=== PATIENT | male | born 1950 | race Caucasian/White ===

== ENCOUNTER 2016-11-26 09:56 | Inpatient (IN) ==
[2016-11-26] MEDS ORDERED: Naloxone 0.4 MG/ML INJ IVP PRN (11:31)
[2016-11-26] MEDS: *HR* HYDROmorphone (PF) 1 MG/ML SYRINGE IVP PRN ×2 (12:13→16:22)
[2016-11-26] MEDS: 0.9 % Sodium Chloride 1,000 ML IVC SCH ×2 (12:13→19:00)
[2016-11-26] MEDS: Piperacillin/Tazobactam 3.375 GM in D5% in Water (Mini-Bag+) 100 ML IVPB SCH ×2 (15:06→15:10)
[2016-11-26] MEDS: Ondansetron 4 MG/2 ML VIAL IVP PRN (15:41)
--- NOTE | 2016-11-26 17:28 | General Surg History&Physical ---
Date of Encounter: 11/26/16 Time of Encounter: 11:10 Assessment and Plan (1) Acute appendicitis Current Visit: No Status: Acute CT confirmed perforated appendix. NPO with bowel rest. Placing NG tube. IV-Zosyn Continue zofran. Supportive care/Pain control- ASSOCIATE EDITOR/dilaudid Serial abdominal exams. Repeat labs in AM. Qualifiers: Acute appendicitis type: with generalized peritonitis Qualified Code(s): K35.2 - Acute appendicitis with generalized peritonitis (2) Leukocytosis Current Visit: Yes Status: Acute WBC 15.4 Continue IV zosyn Monitor labs, repeat in the AM Qualifiers: Leukocytosis type: unspecified Qualified Code(s): D72.829 - Elevated white blood cell count, unspecified (3) HTN (hypertension) Current Visit: Yes Status: Chronic Home medication held for NPO status. Currently normotensive. Will monitor and adjust medications as needed. Qualifiers: Hypertension type: essential hypertension Qualified Code(s): I10 - Essential (primary) hypertension (4) DVT prophylaxis Current Visit: Yes Status: Acute EPCDs History of Present Illness Chief complaint: abdominal pain HPI: Mr. Kirk is a 66 year old male transferred from [place] ED with N/V/abd pain x 2 days. Patient found to have acute appendicitis on CT in the ED. ED spoke with Dr. Beaulieu, correctional supply supervisor for surgery, for admission. PMHx of HTN. Patient admits to chills, but no documented fever; states he feels very "bloated". Last flatus and BM noted to be yesterday. Patient describes abdominal pain as diffuse, 10/ 10 in severity, currently still 10/10. Patient notes some recent nausea, denies any vomiting. Patient notes increase in urine output, with pain radiating to his "penis and rectum". Labs reviewed from [place] with WBC 15.4, Hgb 14.9, total bilirubin elevated at 1.5. Past Med Surg Social Fam HX - Past Medical History Medical history: hypertension Psychiatric history: no psych history - Past Surgical History Surgical History: orthopedic, other (ACL repair bilaterally), vasectomy - Social History Smoking Status: Never smoker Alcohol use: occasionally Drug use: none - Family History Father Living Status: Hx Family Cardiac Disorders: Yes Medications and Allergies Lisinopril [Zestril] 40 mg PO DAILY 11/26/16 [History] Multivitamin/Iron/Folic Acid [Centrum Complete Multivit Tab] 1 tab PO DAILY [History] Allergies No Known Allergies Allergy (Verified 11/26/16 07:21) Review of Systems All systems PM: A 10-system review of systems was performed and is negative for pertinent findings except as documented above in the HPI. - Constitutional chills, fatigue, malaise, weakness - EENT Nose, mouth and throat: dry mouth - Cardiovascular dyspnea, no chest pain, no syncope - Respiratory dyspnea, no cough, no wheezing - Gastrointestinal abdominal pain, bloating, nausea, no vomiting - Genitourinary difficulty urinating, genital pain, post void dribbling, urinary hesitancy, no dysuria - Musculoskeletal muscle weakness, no numbness, no tingling - Integumentary no rash - Neurological weakness, no abnormal speech, no confusion, no syncope General Surgery Exam Initial Vital Signs Temp Pulse Resp BP Pulse Ox 101.5 F H 90 18 111/72 96 11/26/16 11:11 11/26/16 11:11 11/26/16 11:11 11/26/16 11:11 11/26/16 11:11 - General physical appearance well developed, well nourished, moderate distress, severe pain - Eyes normal ocular movement - ENT dry mucosa, atraumatic, normocephalic - Neck trachea midline - Respiratory normal respiratory effort, clear to auscultation - Cardiovascular Cardiovascular exam: Present: RRR - Abdomen Abdomen general surgery: Present: bowel sounds present (hypoactive), distended, tender (diffuse tenderness ). Absent: soft - Integumentary Integumentary general surgery: Present: warm and dry, no abnormal pigmentation - Neurologic Present: CN 2-12 grossly intact - Psychiatric Psychiatric general surgery: Present: oriented to person, oriented to place, oriented to time, speech is normal, memory intact Results - Labs All other labs normal.
[2016-11-26] MEDS: *HR* HYDROmorphone 20 MG/20 ML PCA IVC PRN (18:48)
[2016-11-27] MEDS: Piperacillin/Tazobactam 3.375 GM in D5% in Water (Mini-Bag+) 100 ML IVPB SCH ×4 (01:17→23:43)
[2016-11-27] MEDS: 0.9 % Sodium Chloride 1,000 ML IVC SCH ×2 (01:35→21:52)
[2016-11-27 03:10] LABS: Basophils % 0.2 %; Hemoglobin 13.1 g/dL (12.9-16.9); Immature Granulocytes % 0.8 % (0-4); Lymphocytes # 1.1 K/mcL (0.6-4.6); Lymphocytes % 6.3 %; Mean Corpuscular HGB Conc 34.5 g/dL (31.6-35.5); Mean Corpuscular Volume 95.7 fL (83.0-100.0); Mean Platelet Volume 10.4 fL (9.4-12.4); Monocytes # 0.8 K/mcL (0.0-1.3); Monocytes % 4.5 %; Neutrophils # 15.9 K/mcL (1.6-8.9); Platelet Count 246 K/mcL (140-400); Red Blood Count 3.97 M/mcL (4.19-5.50); Red Cell Distribution Width 12.7 % (11.5-14.5); Segmented Neutrophils % 88.2 %
[2016-11-27 03:26] LABS: Calcium 8.4 mg/dL (8.6-10.8); Potassium 4.6 mEq/L (3.5-4.5)
[2016-11-27] MEDS: Pantoprazole 40 MG VIAL IVP SCH (07:53)
--- NOTE | 2016-11-27 11:02 | General Surgery Progress Note ---
Date of Encounter: 11/29/16 Time of Encounter: 09:50 - Assessment and Plan (1) Acute appendicitis Current Visit: No Status: Acute CT confirmed perforated appendix. NPO with bowel rest. NG to LIWS IV-Zosyn Continue zofran. 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 Repeat labs in AM. Qualifiers: Acute appendicitis type: with generalized peritonitis Qualified Code(s): K35.2 - Acute appendicitis with generalized peritonitis (2) JAYE (acute kidney injury) Current Visit: Yes Status: Acute Cr 1.34> 2.55. GFR 54> 26 Notified Sulma Conklin CNP. Continue Iv fluids at 150cc/hr. Avoid nephrotoxic medications. Consider consult to nephrology. (3) Leukocytosis Current Visit: Yes Status: Acute WBC 15.4>18.0 Continue IV zosyn Monitor labs, repeat in the AM Qualifiers: Leukocytosis type: unspecified Qualified Code(s): D72.829 - Elevated white blood cell count, unspecified (4) HTN (hypertension) Current Visit: Yes Status: Chronic Home medication held for NPO status. Currently pressures running low. Will monitor and adjust medications as needed. Qualifiers: Hypertension type: essential hypertension Qualified Code(s): I10 - Essential (primary) hypertension (5) DVT prophylaxis Current Visit: Yes Status: Acute EPCDs Subjective Patient reports: no new complaints, feels better, still having pain, pain is less (states SCRAP IRON LOADER is helping), no flatus (last flatus noted to be Sunday night. ), no bowel movement, afebrile (initial fever at 101.5 yesterday, no further elevated temps.), other (Still feeling "bloated") Objective Vital Signs - Last 8 Hours Temp Pulse Resp BP Pulse Ox 11/27/16 06:33 97.9 F 79 13 89/72 95 11/27/16 03:25 97.9 F 86 16 91/60 92 L Intake and Output 11/26/16 11/27/16 11/27/16 23:59 07:59 15:59 Intake Total 1100 / 1100 1100 / 1100 Output Total 300 / 300 350 / 350 75 / 75 Balance 800 / 800 750 / 750 -75 / -75 Intake: IV Fluids 1100 / 1100 1100 / 1100 0.9 % Sodium Chloride 1, 1000 / 1000 1000 / 1000 000 ML @ 150 mls/hr IVC . Q6H40M [facility] Rx#:[id number] Zosyn 3.375 GM In 100 / 100 100 / 100 Dextrose 5% (Minibag+) 100 ML 100 ML @ 25 mls/hr IVPB Q8HR [facility] Rx#: [id number] Oral 0 / 0 0 / 0 Output: Urine 300 / 300 Urethral (Marks) 300 / 300 Catheter 0 / 0 0 / 0 Gastric Drainage 350 / 350 75 / 75 Right Nare 75 / 75 Other: Meal NPO Stool Color Green Weight 96.3 kg Blood Glucose* 123 136 Patient Weight 11/27/16 23:59 Weight 96.3 kg - General physical appearance well developed, well nourished, moderate distress, moderate pain - Eyes normal ocular movement - ENT atraumatic, normocephalic - Neck Neck exam: trachea midline - Respiratory normal respiratory effort, clear to auscultation - Cardiovascular Cardiovascular exam: Present: RRR - Abdomen Abdomen: Present: bowel sounds present (hypoactive), distended (upper abdomen more distended than lower portion.), tender (diffuse tenderness). Absent: guarding, rebound - Integumentary no rash, no abnormal pigmentation - Neurologic CN 2-12 grossly intact - Psychiatric oriented to person, oriented to place, speech is normal, memory intact - Labs 11/29/16 05:34 11/29/16 05:34 Diabetes panel 11/27/16 Range/Units 02:50 Sodium 133 L (136-145) mEq/L Potassium 4.6 H (3.5-4.5) mEq/L Chloride 102 (98-109) mEq/L Carbon Dioxide 19 (19-29) mEq/L BUN 23 (8-26) mg/dL Creatinine 2.55 H D (0.72-1.25) mg/dL Glucose 138 H (70-99) mg/dL Calcium 8.4 L D (8.6-10.8) mg/dL Calcium panel 11/27/16 Range/Units 02:50 Calcium 8.4 L D (8.6-10.8) mg/dL Pituitary panel 11/27/16 Range/Units 02:50 Sodium 133 L (136-145) mEq/L Potassium 4.6 H (3.5-4.5) mEq/L Chloride 102 (98-109) mEq/L Carbon Dioxide 19 (19-29) mEq/L BUN 23 (8-26) mg/dL Creatinine 2.55 H D (0.72-1.25) mg/dL Glucose 138 H (70-99) mg/dL Calcium 8.4 L D (8.6-10.8) mg/dL Adrenal panel 11/27/16 Range/Units 02:50 Sodium 133 L (136-145) mEq/L Potassium 4.6 H (3.5-4.5) mEq/L Chloride 102 (98-109) mEq/L Carbon Dioxide 19 (19-29) mEq/L BUN 23 (8-26) mg/dL Creatinine 2.55 H D (0.72-1.25) mg/dL Glucose 138 H (70-99) mg/dL Calcium 8.4 L D (8.6-10.8) mg/dL Consult Discharge Plan - Plan Referrals: NO,PCP [Primary Care Provider] -
[2016-11-27] MEDS ORDERED: 0.9 % Sodium Chloride 1,000 ML IVC ONE (15:28)
[2016-11-28] MEDS: *HR* HYDROmorphone 20 MG/20 ML PCA IVC PRN (00:25)
[2016-11-28] MEDS: 0.9 % Sodium Chloride 1,000 ML IVC SCH ×3 (05:18→19:01)
[2016-11-28 06:03] LABS: Basophils % 0.2 %; Eosinophils % 0.2 %; Hematocrit 34.7 % (37.5-50.1); Lymphocytes # 0.6 K/mcL (0.6-4.6); Lymphocytes % 5.2 %; Mean Corpuscular HGB Conc 33.1 g/dL (31.6-35.5); Mean Corpuscular Hemoglobin 32.3 pg (28.0-33.3); Mean Corpuscular Volume 97.5 fL (83.0-100.0); Mean Platelet Volume 10.9 fL (9.4-12.4); Monocytes # 0.6 K/mcL (0.0-1.3); Monocytes % 4.8 %; Platelet Count 215 K/mcL (140-400); Red Blood Count 3.56 M/mcL (4.19-5.50); Red Cell Distribution Width 12.7 % (11.5-14.5); Segmented Neutrophils % 88.6 %
[2016-11-28 06:11] LABS: Hemoglobin 11.5 g/dL (12.9-16.9)
[2016-11-28 06:18] LABS: Calcium 8.3 mg/dL (8.6-10.8); Potassium 4.1 mEq/L (3.5-4.5)
[2016-11-28] MEDS: Pantoprazole 40 MG VIAL IVP SCH (07:51)
[2016-11-28] MEDS: Piperacillin/Tazobactam 3.375 GM in D5% in Water (Mini-Bag+) 100 ML IVPB SCH ×2 (07:51→16:05)
--- NOTE | 2016-11-28 11:51 | General Surgery Progress Note ---
Date of Encounter: 11/28/16 Time of Encounter: 09:40 - Assessment and Plan (1) Acute appendicitis Current Visit: No Status: Acute CT confirmed perforated appendix. NPO with bowel rest. NG to LIWS IV-Zosyn Continue zofran. 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 Repeat labs in AM. Incentive spirometer Qualifiers: Acute appendicitis type: with generalized peritonitis Qualified Code(s): K35.2 - Acute appendicitis with generalized peritonitis (2) Ileus Current Visit: Yes Status: Acute NPO with bowel rest NG to LIWS (3) JAYE (acute kidney injury) Current Visit: Yes Status: Acute Improving Cr 1.34> 2.55>2.08 GFR 54> 26>32 Continue Iv fluids at 150cc/hr. Avoid nephrotoxic medications. (4) Leukocytosis Current Visit: Yes Status: Acute WBC 15.4>18.0>12.4 Continue IV zosyn Monitor labs, repeat in the AM Qualifiers: Leukocytosis type: unspecified Qualified Code(s): D72.829 - Elevated white blood cell count, unspecified (5) HTN (hypertension) Current Visit: Yes Status: Chronic Home medication held for NPO status. Currently pressures running low. Will monitor and adjust medications as needed. Qualifiers: Hypertension type: essential hypertension Qualified Code(s): I10 - Essential (primary) hypertension (6) DVT prophylaxis Current Visit: Yes Status: Acute EPCDs Subjective Patient reports: no new complaints, still having pain, no flatus, no bowel movement, afebrile Objective Vital Signs - Last 8 Hours Temp Pulse Resp BP Pulse Ox 11/28/16 10:36 98.2 F 87 16 100/66 94 L 11/28/16 06:29 98.8 F 88 14 98/63 93 L 11/28/16 04:13 98.4 F 90 16 100/66 93 L Intake and Output 11/27/16 11/28/16 11/28/16 23:59 07:59 15:59 Intake Total 1100 / 1100 1488 / 1488 Output Total 450 / 450 1375 / 1375 350 / 350 Balance 650 / 650 113 / 113 -350 / -350 Intake: IV Fluids 1100 / 1100 1488 / 1488 0.9 % Sodium Chloride 1, 1000 / 1000 1388 / 1388 000 ML @ 150 mls/hr IVC . Q6H40M [facility] Rx#:[id number] Zosyn 3.375 GM In 100 / 100 100 / 100 Dextrose 5% (Minibag+) 100 ML 100 ML @ 25 mls/hr IVPB Q8HR [facility] Rx#: [id number] Oral 0 / 0 0 / 0 Output: Urine 0 / 0 Urethral (Marks) 0 / 0 Catheter 300 / 300 925 / 925 350 / 350 Gastric Drainage 150 / 150 450 / 450 Right Nare 150 / 150 Other: Meal NPO Blood Glucose* 106 102 108 - General physical appearance well developed, well nourished, moderate distress, moderate pain - Eyes normal ocular movement - ENT normal mucosa, atraumatic, normocephalic - Neck Neck exam: trachea midline - Respiratory normal respiratory effort - Cardiovascular Cardiovascular exam: Present: RRR - Abdomen Abdomen: Present: distended, tender (diffusely tender to palpation). Absent: bowel sounds present, guarding - Integumentary no rash - Neurologic CN 2-12 grossly intact - Psychiatric oriented to person, oriented to place, speech is normal, memory intact - Labs 11/28/16 04:47 11/28/16 04:47 Diabetes panel 11/28/16 Range/Units 04:47 Sodium 138 (136-145) mEq/L Potassium 4.1 (3.5-4.5) mEq/L Chloride 108 (98-109) mEq/L Carbon Dioxide 20 (19-29) mEq/L BUN 29 H (8-26) mg/dL Creatinine 2.08 H (0.72-1.25) mg/dL Glucose 103 H (70-99) mg/dL Calcium 8.3 L (8.6-10.8) mg/dL Calcium panel 11/28/16 Range/Units 04:47 Calcium 8.3 L (8.6-10.8) mg/dL Pituitary panel 11/28/16 Range/Units 04:47 Sodium 138 (136-145) mEq/L Potassium 4.1 (3.5-4.5) mEq/L Chloride 108 (98-109) mEq/L Carbon Dioxide 20 (19-29) mEq/L BUN 29 H (8-26) mg/dL Creatinine 2.08 H (0.72-1.25) mg/dL Glucose 103 H (70-99) mg/dL Calcium 8.3 L (8.6-10.8) mg/dL Adrenal panel 11/28/16 Range/Units 04:47 Sodium 138 (136-145) mEq/L Potassium 4.1 (3.5-4.5) mEq/L Chloride 108 (98-109) mEq/L Carbon Dioxide 20 (19-29) mEq/L BUN 29 H (8-26) mg/dL Creatinine 2.08 H (0.72-1.25) mg/dL Glucose 103 H (70-99) mg/dL Calcium 8.3 L (8.6-10.8) mg/dL Consult Discharge Plan - Plan Referrals: NO,PCP [Primary Care Provider] -
[2016-11-29] MEDS: Piperacillin/Tazobactam 3.375 GM in D5% in Water (Mini-Bag+) 100 ML IVPB SCH ×4 (00:13→23:37)
[2016-11-29] MEDS: 0.9 % Sodium Chloride 1,000 ML IVC SCH ×3 (02:22→17:07)
[2016-11-29 06:01] LABS: Basophils % 0.2 %; Eosinophils # 0.1 K/mcL (0.0-0.6); Eosinophils % 0.9 %; Hematocrit 34.3 % (37.5-50.1); Hemoglobin 11.6 g/dL (12.9-16.9); Immature Granulocytes % 0.5 % (0-4); Lymphocytes # 0.9 K/mcL (0.6-4.6); Lymphocytes % 6.6 %; Mean Corpuscular HGB Conc 33.8 g/dL (31.6-35.5); Mean Corpuscular Hemoglobin 32.6 pg (28.0-33.3); Mean Corpuscular Volume 96.3 fL (83.0-100.0); Mean Platelet Volume 10.2 fL (9.4-12.4); Monocytes # 0.9 K/mcL (0.0-1.3); Monocytes % 6.8 %; Neutrophils # 10.9 K/mcL (1.6-8.9); Platelet Count 250 K/mcL (140-400); Red Blood Count 3.56 M/mcL (4.19-5.50); Red Cell Distribution Width 13.1 % (11.5-14.5)
[2016-11-29 06:17] LABS: BUN/Creatinine Ratio 15 (6-26); Blood Urea Nitrogen 20 mg/dL (8-26); Calcium 8.9 mg/dL (8.6-10.8); Carbon Dioxide 21 mEq/L (19-29); Chloride 109 mEq/L (98-109); Glucose 101 mg/dL (70-99); Osmolality,Calculated 295 (280-300); Potassium 4.1 mEq/L (3.5-4.5); Sodium 141 mEq/L (136-145); eGFR For African Americans > 60 (> 60); eGFR For Non-African Americans 55 (> 60)
[2016-11-29] MEDS: Pantoprazole 40 MG VIAL IVP SCH (08:32)
[2016-11-29] MEDS: *HR* HYDROmorphone 20 MG/20 ML PCA IVC PRN (08:36)
--- NOTE | 2016-11-29 09:53 | General Surgery Progress Note ---
Date of Encounter: 11/29/16 Time of Encounter: 09:00 - Assessment and Plan (1) Acute appendicitis Current Visit: No Status: Acute CT confirmed perforated appendix. NPO with bowel rest. NG to LIWS IV-Zosyn Continue zofran. Supportive care/Pain control- dilaudid ABALONE DIVER Serial abdominal exams. Repeat labs in AM. Qualifiers: Acute appendicitis type: with generalized peritonitis Qualified Code(s): K35.2 - Acute appendicitis with generalized peritonitis (2) JAYE (acute kidney injury) Current Visit: Yes Status: Acute Cr 1.34> 2.55>2.08>1.31 GFR 54> 26>32>55 Continue Iv fluids at 150cc/hr. Avoid nephrotoxic medications. (3) Leukocytosis Current Visit: Yes Status: Acute WBC 15.4>18.0>12.8 Continue IV zosyn Monitor labs, repeat in the AM Qualifiers: Leukocytosis type: unspecified Qualified Code(s): D72.829 - Elevated white blood cell count, unspecified (4) HTN (hypertension) Current Visit: Yes Status: Chronic Home medication held for NPO status. Pressures previously running low. Currently normotensive. Will monitor and adjust medications as needed. Qualifiers: Hypertension type: essential hypertension Qualified Code(s): I10 - Essential (primary) hypertension (5) DVT prophylaxis Current Visit: Yes Status: Acute EPCDs Subjective Patient reports: no new complaints, still having pain, no flatus, no bowel movement, afebrile Objective Vital Signs - Last 8 Hours Temp Pulse Resp BP Pulse Ox 11/29/16 08:24 97.9 F 84 17 122/81 98 11/29/16 04:00 97.9 F 84 17 126/80 94 L 11/29/16 02:33 99.4 F 84 16 123/83 94 L Intake and Output 11/28/16 11/29/16 11/29/16 23:59 07:59 15:59 Intake Total 1100 / 1100 1100 / 1100 1240 / 1240 Output Total 0 / 0 700 / 700 1400 / 1400 Balance 1100 / 1100 400 / 400 -160 / -160 Intake: IV Fluids 1100 / 1100 1100 / 1100 1000 / 1000 0.9 % Sodium Chloride 1, 1000 / 1000 1000 / 1000 1000 / 1000 000 ML @ 150 mls/hr IVC . Q6H40M [facility] Rx#:[id number] Zosyn 3.375 GM In 100 / 100 100 / 100 Dextrose 5% (Minibag+) 100 ML 100 ML @ 25 mls/hr IVPB Q8HR [facility] Rx#: [id number] Oral 0 / 0 240 / 240 Output: Urine 0 / 0 Urethral (Marks) 0 / 0 Catheter 700 / 700 700 / 700 Gastric Drainage 700 / 700 Other: Meal NPO for dinner Weight 96.4 kg Blood Glucose* 83 90 Patient Weight 11/29/16 23:59 Weight 96.4 kg - General physical appearance well developed, well nourished, moderate pain - Eyes normal ocular movement - ENT normal mucosa, atraumatic, normocephalic - Neck Neck exam: trachea midline - Respiratory normal respiratory effort, clear to auscultation - Cardiovascular Cardiovascular exam: Present: RRR - Abdomen Abdomen: Present: distended, tender (diffusely tender to palpation.). Absent: bowel sounds present, guarding - Integumentary no rash - Neurologic CN 2-12 grossly intact - Psychiatric oriented to time, oriented to person, oriented to place, speech is normal, memory intact - Labs 11/29/16 05:34 11/29/16 05:34 Diabetes panel 11/29/16 Range/Units 05:34 Sodium 141 (136-145) mEq/L Potassium 4.1 (3.5-4.5) mEq/L Chloride 109 (98-109) mEq/L Carbon Dioxide 21 (19-29) mEq/L BUN 20 (8-26) mg/dL Creatinine 1.31 H (0.72-1.25) mg/dL Glucose 101 H (70-99) mg/dL Calcium 8.9 (8.6-10.8) mg/dL Calcium panel 11/29/16 Range/Units 05:34 Calcium 8.9 (8.6-10.8) mg/dL Pituitary panel 11/29/16 Range/Units 05:34 Sodium 141 (136-145) mEq/L Potassium 4.1 (3.5-4.5) mEq/L Chloride 109 (98-109) mEq/L Carbon Dioxide 21 (19-29) mEq/L BUN 20 (8-26) mg/dL Creatinine 1.31 H (0.72-1.25) mg/dL Glucose 101 H (70-99) mg/dL Calcium 8.9 (8.6-10.8) mg/dL Adrenal panel 11/29/16 Range/Units 05:34 Sodium 141 (136-145) mEq/L Potassium 4.1 (3.5-4.5) mEq/L Chloride 109 (98-109) mEq/L Carbon Dioxide 21 (19-29) mEq/L BUN 20 (8-26) mg/dL Creatinine 1.31 H (0.72-1.25) mg/dL Glucose 101 H (70-99) mg/dL Calcium 8.9 (8.6-10.8) mg/dL - VTE Documentation of Mechanical Device: Intermittent pneumatic compression device Consult Discharge Plan - Plan Referrals: NO,PCP [Primary Care Provider] -
--- NOTE | 2016-11-29 10:05 | General Surgery Progress Note ---
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 Repeat am labs Ambulate in hallways today Qualifiers: Acute appendicitis type: with generalized peritonitis Qualified Code(s): K35.2 - Acute appendicitis with generalized peritonitis (2) JAYE (acute kidney injury) Current Visit: Yes Status: Acute Improving- 2.08>1.31 Avoid nephrotoxic medications Continue reyna catheter to SD Repeat am labs (3) Ileus Current Visit: Yes Status: Acute Continue bowel rest with NG tube to LIWS Await return of bowel function IV fluids- decrease to 120ml/hour today (4) Leukocytosis Current Visit: Yes Status: Acute 12.4>12.8 Continue IV antibiotics- Zosyn Qualifiers: Leukocytosis type: unspecified Qualified Code(s): D72.829 - Elevated white blood cell count, unspecified (5) HTN (hypertension) Current Visit: Yes Status: Chronic Normotensive Will continue to monitor and treat as necessary Qualifiers: Hypertension type: essential hypertension Qualified Code(s): I10 - Essential (primary) hypertension (6) DVT prophylaxis Current Visit: Yes Status: Acute EPCDs to bilateral lower extremities for DVT prophylaxis Ambulate in hallways with assistance TID Subjective Patient reports: still having pain (states that not much change in pain level), no flatus, no bowel movement, afebrile (Tmax 99.5) Objective Vital Signs - Last 8 Hours Temp Pulse Resp BP Pulse Ox 11/29/16 08:24 97.9 F 84 17 122/81 98 11/29/16 04:00 97.9 F 84 17 126/80 94 L 11/29/16 02:33 99.4 F 84 16 123/83 94 L Intake and Output 11/28/16 11/29/16 11/29/16 23:59 07:59 15:59 Intake Total 1100 / 1100 1100 / 1100 1240 / 1240 Output Total 0 / 0 700 / 700 1400 / 1400 Balance 1100 / 1100 400 / 400 -160 / -160 Intake: IV Fluids 1100 / 1100 1100 / 1100 1000 / 1000 0.9 % Sodium Chloride 1, 1000 / 1000 1000 / 1000 1000 / 1000 000 ML @ 150 mls/hr IVC . Q6H40M [facility] Rx#:[id number] Zosyn 3.375 GM In 100 / 100 100 / 100 Dextrose 5% (Minibag+) 100 ML 100 ML @ 25 mls/hr IVPB Q8HR [facility] Rx#: [id number] Oral 0 / 0 240 / 240 Output: Urine 0 / 0 Urethral (Reyna) 0 / 0 Catheter 700 / 700 700 / 700 Gastric Drainage 700 / 700 Other: Meal NPO for dinner NPO Weight 96.4 kg Blood Glucose* 83 90 Patient Weight 11/29/16 23:59 Weight 96.4 kg - General physical appearance well developed, well nourished, moderate pain - Eyes normal ocular movement - ENT normal mucosa, atraumatic, normocephalic - Neck Neck exam: trachea midline - Respiratory normal respiratory effort, clear to auscultation - Cardiovascular Cardiovascular exam: Present: RRR - Abdomen Abdomen: Present: bowel sounds present (tympanic ), soft, distended, tender, wound (NG tube to LIWS (900ml since midnight); tube advanced ) - Genitourinary other (reyna catheter to SD with clear, yellow urine noted (1500ml since midnight)) - Neurologic CN 2-12 grossly intact - Psychiatric oriented to time, oriented to person, oriented to place, speech is normal, memory intact - Labs 11/29/16 05:34 11/29/16 05:34 Diabetes panel 11/29/16 Range/Units 05:34 Sodium 141 (136-145) mEq/L Potassium 4.1 (3.5-4.5) mEq/L Chloride 109 (98-109) mEq/L Carbon Dioxide 21 (19-29) mEq/L BUN 20 (8-26) mg/dL Creatinine 1.31 H (0.72-1.25) mg/dL Glucose 101 H (70-99) mg/dL Calcium 8.9 (8.6-10.8) mg/dL Calcium panel 11/29/16 Range/Units 05:34 Calcium 8.9 (8.6-10.8) mg/dL Pituitary panel 11/29/16 Range/Units 05:34 Sodium 141 (136-145) mEq/L Potassium 4.1 (3.5-4.5) mEq/L Chloride 109 (98-109) mEq/L Carbon Dioxide 21 (19-29) mEq/L BUN 20 (8-26) mg/dL Creatinine 1.31 H (0.72-1.25) mg/dL Glucose 101 H (70-99) mg/dL Calcium 8.9 (8.6-10.8) mg/dL Adrenal panel 11/29/16 Range/Units 05:34 Sodium 141 (136-145) mEq/L Potassium 4.1 (3.5-4.5) mEq/L Chloride 109 (98-109) mEq/L Carbon Dioxide 21 (19-29) mEq/L BUN 20 (8-26) mg/dL Creatinine 1.31 H (0.72-1.25) mg/dL Glucose 101 H (70-99) mg/dL Calcium 8.9 (8.6-10.8) mg/dL - VTE Documentation of Mechanical Device: Intermittent pneumatic compression device Consult Discharge Plan - Plan Referrals: NO,PCP [Primary Care Provider] - - Attending Attestation I examined this patient and my medical decision-making was reviewed with the FOAM RUBBER CURER/PA/Advanced Practice Nurse/Resident Physician. I agree with the documented findings, disposition and treatment plan as described except to the extent set forth below.
[2016-11-29] MEDS ORDERED: 0.9 % Sodium Chloride 1,000 ML IVC SCH (10:15)
[2016-11-29] MEDS ORDERED: D10% in Water 500 ML IV PRN (12:48)
[2016-11-29] MEDS ORDERED: Chloraseptic Spray 177 ML BOTTLE MM PRN (14:19)
[2016-11-29] MEDS ORDERED: Lidocaine -MPF 1% 5 ML AMPUL INFILT ONE (15:29)
[2016-11-29] MEDS ORDERED: Clinimix E 5%-15% SOLUTION 2,000 ML with MVI, adult with vitamin K 10 ML IV SCH (17:00)
[2016-11-30 04:51] LABS: BUN/Creatinine Ratio 15 (6-26); Blood Urea Nitrogen 15 mg/dL (8-26); Carbon Dioxide 22 mEq/L (19-29); Chloride 108 mEq/L (98-109); Potassium 3.4 mEq/L (3.5-4.5); Sodium 140 mEq/L (136-145); eGFR For African Americans > 60 (> 60)
[2016-11-30 04:52] LABS: Basophils % 0.2 %; Calcium 8.9 mg/dL (8.6-10.8); Eosinophils # 0.4 K/mcL (0.0-0.6); Eosinophils % 3.1 %; Glucose 129 mg/dL (70-99); Hematocrit 32.8 % (37.5-50.1); Hemoglobin 11.4 g/dL (12.9-16.9); Immature Granulocytes % 0.9 % (0-4); Lymphocytes # 1.1 K/mcL (0.6-4.6); Lymphocytes % 8.2 %; Mean Corpuscular HGB Conc 34.8 g/dL (31.6-35.5); Mean Corpuscular Hemoglobin 32.6 pg (28.0-33.3); Mean Corpuscular Volume 93.7 fL (83.0-100.0); Monocytes % 7.1 %; Osmolality,Calculated 293 (280-300); Platelet Count 274 K/mcL (140-400); Red Cell Distribution Width 13.1 % (11.5-14.5); Segmented Neutrophils % 80.5 %; eGFR For Non-African Americans > 60 (> 60)
[2016-11-30 05:11] LABS: Magnesium 1.8 mg/dL (1.6-2.6); Phosphorous 1.8 mg/dL (2.3-4.7)
[2016-11-30] MEDS: Pantoprazole 40 MG VIAL IVP SCH (08:17)
[2016-11-30] MEDS: Piperacillin/Tazobactam 3.375 GM in D5% in Water (Mini-Bag+) 100 ML IVPB SCH ×3 (08:17→23:29)
[2016-11-30] MEDS ORDERED: Potassium Chloride 20 MEQ, Lidocaine 1% 2 ML in D5% in Water 250 ML IVPB ONE (14:18)
[2016-11-30] MEDS ORDERED: Clinimix E 5%-15% SOLUTION 2,000 ML with MVI, adult with vitamin K 10 ML IV SCH (17:00)
[2016-11-30] MEDS: 0.9 % Sodium Chloride 1,000 ML IVC SCH (17:39)
[2016-11-30] MEDS: *HR* HYDROmorphone 20 MG/20 ML PCA IVC PRN (19:26)
[2016-12-01 03:37] LABS: Basophils % 0.3 %; Eosinophils # 0.6 K/mcL (0.0-0.6); Eosinophils % 5.1 %; Hematocrit 30.8 % (37.5-50.1); Hemoglobin 10.5 g/dL (12.9-16.9); Immature Granulocytes % 1.5 % (0-4); Lymphocytes # 1.2 K/mcL (0.6-4.6); Lymphocytes % 10.8 %; Mean Corpuscular HGB Conc 34.1 g/dL (31.6-35.5); Mean Corpuscular Hemoglobin 32.1 pg (28.0-33.3); Mean Corpuscular Volume 94.2 fL (83.0-100.0); Mean Platelet Volume 9.9 fL (9.4-12.4); Monocytes # 0.9 K/mcL (0.0-1.3); Monocytes % 7.9 %; Neutrophils # 8.2 K/mcL (1.6-8.9); Platelet Count 262 K/mcL (140-400); Red Blood Count 3.27 M/mcL (4.19-5.50); Red Cell Distribution Width 13.4 % (11.5-14.5); Segmented Neutrophils % 74.4 %
[2016-12-01 03:49] LABS: BUN/Creatinine Ratio 13 (6-26); Blood Urea Nitrogen 12 mg/dL (8-26); Calcium 8.7 mg/dL (8.6-10.8); Carbon Dioxide 25 mEq/L (19-29); Chloride 106 mEq/L (98-109); Glucose 121 mg/dL (70-99); Magnesium 1.6 mg/dL (1.6-2.6); Osmolality,Calculated 293 (280-300); Phosphorous 3.2 mg/dL (2.3-4.7); Potassium 3.2 mEq/L (3.5-4.5); Sodium 141 mEq/L (136-145); eGFR For African Americans > 60 (> 60); eGFR For Non-African Americans > 60 (> 60)
[2016-12-01] MEDS: Piperacillin/Tazobactam 3.375 GM in D5% in Water (Mini-Bag+) 100 ML IVPB SCH ×3 (10:31→23:19)
[2016-12-01] MEDS: Pantoprazole 40 MG VIAL IVP SCH (10:31)
[2016-12-01] MEDS: Ondansetron 4 MG/2 ML VIAL IVP PRN ×2 (13:05→23:19)
[2016-12-01] MEDS ORDERED: Potassium Chloride 40 MEQ, Lidocaine 1% 2 ML in D5% in Water 500 ML IVPB ONE (13:09)
--- NOTE | 2016-12-01 13:13 | General Surgery Progress Note ---
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 Repeat am labs Ambulate in hallways Qualifiers: Acute appendicitis type: with generalized peritonitis Qualified Code(s): K35.2 - Acute appendicitis with generalized peritonitis (2) JAYE (acute kidney injury) Current Visit: Yes Status: Resolved Resolved- Cr 0.91 Avoid nephrotoxic medications (3) Ileus Current Visit: Yes Status: Acute Continue bowel rest with NG tube to LIWS May have 1 cup of ice chips per shift Await return of bowel function IV fluids- total fluid rate 100ml/hour (MIV + TPN) (4) Leukocytosis Current Visit: Yes Status: Resolved Normal today 12.4>12.8>13.7>11 Continue IV antibiotics- Zosyn Qualifiers: Leukocytosis type: unspecified Qualified Code(s): D72.829 - Elevated white blood cell count, unspecified (5) HTN (hypertension) Current Visit: Yes Status: Chronic Mildly elevated Add Metoprolol IV every 6 hours Will continue to monitor and treat as necessary Qualifiers: Hypertension type: essential hypertension Qualified Code(s): I10 - Essential (primary) hypertension (6) DVT prophylaxis Current Visit: Yes Status: Acute EPCDs to bilateral lower extremities for DVT prophylaxis Ambulate in hallways with assistance TID Add heparin 5,000 units SQ twice daily for DVT prophylaxis (7) Hypokalemia Current Visit: Yes Status: Acute Replace potassium Repeat labs in the am Subjective Patient reports: no new complaints, still having pain, pain is less, voiding w/ o difficulty (still having some hesitancy but has overall improved), no flatus, no bowel movement, nausea (complaint of nausea which started this morning), afebrile Objective Vital Signs - Last 8 Hours Temp Pulse Resp BP Pulse Ox 12/01/16 08:50 97.6 F 70 18 143/83 94 L Intake and Output 11/30/16 12/01/16 12/01/16 23:59 07:59 15:59 Intake Total 560 / 560 410 / 410 0 / 0 Output Total 1265 / 1265 825 / 825 200 / 200 Balance -705 / -705 -415 / -415 -200 / -200 Intake: IV Fluids 560 / 560 350 / 350 0.9 % Sodium Chloride 1, 460 / 460 000 ML @ 100 mls/hr IVC . Q10H [facility] Rx#:[id number] Intralipid 20% 250 ML @ 250 / 250 21 mls/hr IVPB DAILY@1700 [facility] Rx#:[id number] Zosyn 3.375 GM In 100 / 100 100 / 100 Dextrose 5% (Minibag+) 100 ML 100 ML @ 25 mls/hr IVPB Q8HR [facility] Rx#: [id number] Oral 0 / 0 60 / 60 0 / 0 Output: Urine 665 / 665 75 / 75 200 / 200 Catheter 150 / 150 Gastric Drainage 600 / 600 600 / 600 Right Nare 600 / 600 Other: Meal NPO ice chips NPO Percent of Meal Consumed 0% Weight 96.4 kg Blood Glucose* 144 118 122 Patient Weight 12/01/16 23:59 Weight 96.4 kg - General physical appearance well developed, well nourished, no distress - Eyes other (right eye redness improving), normal ocular movement - ENT dry mucosa, atraumatic, normocephalic - Neck Neck exam: trachea midline - Respiratory normal respiratory effort, clear to auscultation - Cardiovascular Cardiovascular exam: Present: RRR - Abdomen Abdomen: Present: soft, distended, tender (improving), wound (NG tube to LIWS ( 350ml noted since 0600)) Abdominal Tenderness: RLQ, LLQ, suprapubic - Neurologic CN 2-12 grossly intact - Psychiatric oriented to time, oriented to person, oriented to place, speech is normal, memory intact - Labs 12/01/16 03:28 12/01/16 03:28 Diabetes panel 12/01/16 Range/Units 03:28 Sodium 141 (136-145) mEq/L Potassium 3.2 L (3.5-4.5) mEq/L Chloride 106 (98-109) mEq/L Carbon Dioxide 25 (19-29) mEq/L BUN 12 (8-26) mg/dL Creatinine 0.91 (0.72-1.25) mg/dL Glucose 121 H (70-99) mg/dL Calcium 8.7 (8.6-10.8) mg/dL Calcium panel 12/01/16 Range/Units 03:28 Calcium 8.7 (8.6-10.8) mg/dL Phosphorus 3.2 D (2.3-4.7) mg/dL Pituitary panel 12/01/16 Range/Units 03:28 Sodium 141 (136-145) mEq/L Potassium 3.2 L (3.5-4.5) mEq/L Chloride 106 (98-109) mEq/L Carbon Dioxide 25 (19-29) mEq/L BUN 12 (8-26) mg/dL Creatinine 0.91 (0.72-1.25) mg/dL Glucose 121 H (70-99) mg/dL Calcium 8.7 (8.6-10.8) mg/dL Adrenal panel 12/01/16 Range/Units 03:28 Sodium 141 (136-145) mEq/L Potassium 3.2 L (3.5-4.5) mEq/L Chloride 106 (98-109) mEq/L Carbon Dioxide 25 (19-29) mEq/L BUN 12 (8-26) mg/dL Creatinine 0.91 (0.72-1.25) mg/dL Glucose 121 H (70-99) mg/dL Calcium 8.7 (8.6-10.8) mg/dL - VTE Documentation of Mechanical Device: Intermittent pneumatic compression device Consult Discharge Plan - Plan Referrals: NO,PCP [Primary Care Provider] - - Attending Attestation I examined this patient and my medical decision-making was reviewed with the PLANT OPERATOR/SHIFT SUPERVISOR/PA/Advanced Practice Nurse/Resident Physician. I agree with the documented findings, disposition and treatment plan as described except to the extent set forth below.
[2016-12-01] MEDS: 0.9 % Sodium Chloride 1,000 ML IVC SCH (13:59)
[2016-12-01] MEDS: *HR* Metoprolol 5 MG/5 ML VIAL IVP SCH ×2 (16:46→23:19)
[2016-12-01] MEDS ORDERED: Clinimix E 5%-15% SOLUTION 2,000 ML with MVI, adult with vitamin K 10 ML IV SCH (17:00)
[2016-12-01] MEDS: *HR* Heparin 5,000 UNIT/ML VIAL SQ SCH (19:22)
[2016-12-01] MEDS: *HR* HYDROmorphone 20 MG/20 ML PCA IVC PRN (21:11)
[2016-12-02 03:44] LABS: Hematocrit 30.3 % (37.5-50.1); Hemoglobin 10.4 g/dL (12.9-16.9); Mean Corpuscular HGB Conc 34.3 g/dL (31.6-35.5); Mean Corpuscular Hemoglobin 32.4 pg (28.0-33.3); Mean Corpuscular Volume 94.4 fL (83.0-100.0); Mean Platelet Volume 9.7 fL (9.4-12.4); Platelet Count 279 K/mcL (140-400); Red Blood Count 3.21 M/mcL (4.19-5.50); Red Cell Distribution Width 13.3 % (11.5-14.5)
[2016-12-02 03:57] LABS: BUN/Creatinine Ratio 15 (6-26); Blood Urea Nitrogen 13 mg/dL (8-26); Calcium 8.7 mg/dL (8.6-10.8); Carbon Dioxide 26 mEq/L (19-29); Chloride 102 mEq/L (98-109); Glucose 125 mg/dL (70-99); Magnesium 1.5 mg/dL (1.6-2.6); Osmolality,Calculated 290 (280-300); Phosphorous 3.7 mg/dL (2.3-4.7); Potassium 3.5 mEq/L (3.5-4.5); Sodium 139 mEq/L (136-145); eGFR For African Americans > 60 (> 60); eGFR For Non-African Americans > 60 (> 60)
[2016-12-02 04:34] LABS: Eosinophils # 0.8 K/mcL (0.0-0.6); Lymphocytes # 1.9 K/mcL (0.6-4.6); Monocytes # 0.4 K/mcL (0.0-1.3); Platelet Estimate Normal (Normal)
[2016-12-02 04:35] LABS: Reactive Lymphocytes Present (Not Present)
[2016-12-02] MEDS: *HR* Metoprolol 5 MG/5 ML VIAL IVP SCH ×3 (05:46→17:28)
[2016-12-02] MEDS: *HR* Heparin 5,000 UNIT/ML VIAL SQ SCH ×2 (06:43→17:27)
[2016-12-02] MEDS: Ondansetron 4 MG/2 ML VIAL IVP PRN ×2 (08:22→23:21)
[2016-12-02] MEDS: Pantoprazole 40 MG VIAL IVP SCH (08:22)
[2016-12-02] MEDS: Piperacillin/Tazobactam 3.375 GM in D5% in Water (Mini-Bag+) 100 ML IVPB SCH ×3 (08:22→23:21)
[2016-12-02] MEDS ORDERED: Magnesium Sulfate 2 GM in D5% in Water 100 ML IVPB ONE (08:47)
[2016-12-02] MEDS: 0.9 % Sodium Chloride 1,000 ML IVC SCH (16:20)
[2016-12-02] MEDS ORDERED: Clinimix E 5%-15% SOLUTION 2,000 ML with MVI, adult with vitamin K 10 ML IV SCH (17:00)
--- NOTE | 2016-12-02 18:56 | General Surgery Progress Note ---
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 (3) Leukocytosis Current Visit: Yes Status: Resolved Improving Continue IV zosyn Monitor labs, repeat in the AM Qualifiers: Leukocytosis type: unspecified Qualified Code(s): D72.829 - Elevated white blood cell count, unspecified (4) Ileus Current Visit: Yes Status: Acute Continue bowel rest with NG tube to LIWS May have 1 cup of ice chips per shift Await return of bowel function IV fluids- total fluid rate 100ml/hour (MIV + TPN) (5) HTN (hypertension) Current Visit: Yes Status: Chronic Mildly elevated Add Metoprolol IV every 6 hours Will continue to monitor and treat as necessary Qualifiers: Hypertension type: essential hypertension Qualified Code(s): I10 - Essential (primary) hypertension (6) DVT prophylaxis Current Visit: Yes Status: Acute EPCDs to bilateral lower extremities for DVT prophylaxis Ambulate in hallways with assistance TID Add heparin 5,000 units SQ twice daily for DVT prophylaxis Subjective Patient reports: no new complaints, feels better, still having pain, pain is less, voiding w/o difficulty (better than yesterday), no flatus, no bowel movement, afebrile, other (stating moving around is easier today) Objective Vital Signs - Last 8 Hours Temp Pulse Resp BP Pulse Ox 12/02/16 14:18 97.7 F 57 14 158/84 98 12/02/16 12:20 97 Intake and Output 12/02/16 12/02/16 12/02/16 07:59 15:59 23:59 Intake Total 350 / 350 100 / 100 829 / 829 Output Total 825 / 825 1900 / 1900 200 / 200 Balance -475 / -475 -1800 / -1800 629 / 629 Intake: IV Fluids 350 / 350 100 / 100 829 / 829 0.9 % Sodium Chloride 1, 829 / 829 000 ML @ 100 mls/hr IVC . Q10H [facility] Rx#:[id number] Intralipid 20% 250 ML @ 250 / 250 21 mls/hr IVPB DAILY@1700 [facility] Rx#:[id number] Zosyn 3.375 GM In 100 / 100 100 / 100 Dextrose 5% (Minibag+) 100 ML 100 ML @ 25 mls/hr IVPB Q8HR [facility] Rx#: [id number] Oral 0 / 0 Output: Urine 425 / 425 1175 / 1175 Gastric Drainage 400 / 400 725 / 725 200 / 200 Right Nare 400 / 400 200 / 200 Other: Meal NPO npo Percent of Meal Consumed 0% Stool Color Yellow Blood Glucose* 130 125 - General physical appearance well developed, well nourished, moderate pain - Eyes normal ocular movement - ENT normal mucosa, atraumatic, normocephalic - Neck Neck exam: trachea midline - Respiratory normal respiratory effort, clear to auscultation - Cardiovascular Cardiovascular exam: Present: RRR - Abdomen Abdomen: Present: bowel sounds present, soft, distended, tender (mildly), wound (NG with clear drainage noted.) - Integumentary no rash, no growths - Neurologic CN 2-12 grossly intact - Psychiatric oriented to time, oriented to person, oriented to place, speech is normal, memory intact - Labs 12/02/16 03:34 12/02/16 03:34 Diabetes panel 12/02/16 Range/Units 03:34 Sodium 139 (136-145) mEq/L Potassium 3.5 (3.5-4.5) mEq/L Chloride 102 (98-109) mEq/L Carbon Dioxide 26 (19-29) mEq/L BUN 13 (8-26) mg/dL Creatinine 0.86 (0.72-1.25) mg/dL Glucose 125 H (70-99) mg/dL Calcium 8.7 (8.6-10.8) mg/dL Calcium panel 12/02/16 Range/Units 03:34 Calcium 8.7 (8.6-10.8) mg/dL Phosphorus 3.7 (2.3-4.7) mg/dL Pituitary panel 12/02/16 Range/Units 03:34 Sodium 139 (136-145) mEq/L Potassium 3.5 (3.5-4.5) mEq/L Chloride 102 (98-109) mEq/L Carbon Dioxide 26 (19-29) mEq/L BUN 13 (8-26) mg/dL Creatinine 0.86 (0.72-1.25) mg/dL Glucose 125 H (70-99) mg/dL Calcium 8.7 (8.6-10.8) mg/dL Adrenal panel 12/02/16 Range/Units 03:34 Sodium 139 (136-145) mEq/L Potassium 3.5 (3.5-4.5) mEq/L Chloride 102 (98-109) mEq/L Carbon Dioxide 26 (19-29) mEq/L BUN 13 (8-26) mg/dL Creatinine 0.86 (0.72-1.25) mg/dL Glucose 125 H (70-99) mg/dL Calcium 8.7 (8.6-10.8) mg/dL - VTE Documentation of Mechanical Device: Intermittent pneumatic compression device Consult Discharge Plan - Plan Referrals: NO,PCP [Primary Care Provider] - <Shawna Flores - Last Filed: 12/02/16 20:05> Date of Encounter: 12/02/16 - Assessment and Plan (1) Acute perforated appendicitis Current Visit: Yes Status: Acute continue abx - zosyn, wbc wnl pt with ileus from perforated appedicitis (2) Ileus Current Visit: Yes Status: Acute no bowel sounds and no flatus, await return of bowel function continue ngt decompression, ivf hydration and tpn prn pain control OOB to chair, ambulate (3) HTN (hypertension) Current Visit: Yes Status: Chronic Qualifiers: Hypertension type: essential hypertension Qualified Code(s): I10 - Essential (primary) hypertension Subjective Patient reports: no new complaints, feels better, still having pain, pain is less, no flatus, no bowel movement Objective Vital Signs - Last 8 Hours Temp Pulse Resp BP Pulse Ox 12/02/16 18:48 98.3 F 71 18 135/74 95 12/02/16 14:18 97.7 F 57 14 158/84 98 12/02/16 12:20 97 Intake and Output 12/02/16 12/02/16 12/02/16 07:59 15:59 23:59 Intake Total 350 / 350 100 / 100 829 / 829 Output Total 825 / 825 1900 / 1900 500 / 500 Balance -475 / -475 -1800 / -1800 329 / 329 Intake: IV Fluids 350 / 350 100 / 100 829 / 829 0.9 % Sodium Chloride 1, 829 / 829 000 ML @ 100 mls/hr IVC . Q10H [facility] Rx#:[id number] Intralipid 20% 250 ML @ 250 / 250 21 mls/hr IVPB DAILY@1700 [facility] Rx#:[id number] Zosyn 3.375 GM In 100 / 100 100 / 100 Dextrose 5% (Minibag+) 100 ML 100 ML @ 25 mls/hr IVPB Q8HR [facility] Rx#: [id number] Oral 0 / 0 0 / 0 Output: Urine 425 / 425 1175 / 1175 300 / 300 Gastric Drainage 400 / 400 725 / 725 200 / 200 Right Nare 400 / 400 200 / 200 Other: Meal NPO npo Percent of Meal Consumed 0% Stool Color Yellow Blood Glucose* 130 125 117 - General physical appearance well developed, well nourished - Eyes PERRL, normal ocular movement - ENT normal mucosa, normocephalic - Neck Neck exam: trachea midline - Respiratory normal expansion, clear to auscultation - Cardiovascular Cardiovascular exam: Present: RRR - Abdomen Abdomen: Present: soft, distended, tender. Absent: bowel sounds present - Integumentary no rash, no growths - Neurologic CN 2-12 grossly intact - Musculoskeletal normal posture - Psychiatric oriented to time, oriented to person, memory intact - Labs 12/02/16 03:34 12/02/16 03:34 Diabetes panel 12/02/16 Range/Units 03:34 Sodium 139 (136-145) mEq/L Potassium 3.5 (3.5-4.5) mEq/L Chloride 102 (98-109) mEq/L Carbon Dioxide 26 (19-29) mEq/L BUN 13 (8-26) mg/dL Creatinine 0.86 (0.72-1.25) mg/dL Glucose 125 H (70-99) mg/dL Calcium 8.7 (8.6-10.8) mg/dL Calcium panel 12/02/16 Range/Units 03:34 Calcium 8.7 (8.6-10.8) mg/dL Phosphorus 3.7 (2.3-4.7) mg/dL Pituitary panel 12/02/16 Range/Units 03:34 Sodium 139 (136-145) mEq/L Potassium 3.5 (3.5-4.5) mEq/L Chloride 102 (98-109) mEq/L Carbon Dioxide 26 (19-29) mEq/L BUN 13 (8-26) mg/dL Creatinine 0.86 (0.72-1.25) mg/dL Glucose 125 H (70-99) mg/dL Calcium 8.7 (8.6-10.8) mg/dL Adrenal panel 12/02/16 Range/Units 03:34 Sodium 139 (136-145) mEq/L Potassium 3.5 (3.5-4.5) mEq/L Chloride 102 (98-109) mEq/L Carbon Dioxide 26 (19-29) mEq/L BUN 13 (8-26) mg/dL Creatinine 0.86 (0.72-1.25) mg/dL Glucose 125 H (70-99) mg/dL Calcium 8.7 (8.6-10.8) mg/dL - Attending Attestation I examined this patient and my medical decision-making was reviewed with the ENVELOPE SEALER OPERATOR/PA/Advanced Practice Nurse/Resident Physician. I agree with the documented findings, disposition and treatment plan as described except to the extent set forth below.
[2016-12-03] MEDS: *HR* Metoprolol 5 MG/5 ML VIAL IVP SCH ×2 (02:37→04:43)
[2016-12-03 05:59] LABS: Hematocrit 30.4 % (37.5-50.1); Hemoglobin 10.4 g/dL (12.9-16.9); Immature Platelets 2.7 % (1.1-6.1); Mean Corpuscular HGB Conc 34.2 g/dL (31.6-35.5); Mean Corpuscular Hemoglobin 32.2 pg (28.0-33.3); Mean Platelet Volume 9.6 fL (9.4-12.4); Platelet Count 335 K/mcL (140-400); Red Blood Count 3.23 M/mcL (4.19-5.50); Red Cell Distribution Width 13.6 % (11.5-14.5)
[2016-12-03 06:19] LABS: Mean Corpuscular Volume 94.1 fL (83.0-100.0)
[2016-12-03 06:41] LABS: Basophils # 0.2 K/mcL (0.0-0.2); Eosinophils # 0.4 K/mcL (0.0-0.6); Lymphocytes # 1.7 K/mcL (0.6-4.6); Monocytes # 0.4 K/mcL (0.0-1.3); Neutrophils # 6.5 K/mcL (1.6-8.9); Platelet Estimate Normal (Normal)
[2016-12-03 08:03] LABS: BUN/Creatinine Ratio 17 (6-26); Blood Urea Nitrogen 15 mg/dL (8-26); Calcium 8.7 mg/dL (8.6-10.8); Carbon Dioxide 26 mEq/L (19-29); Chloride 103 mEq/L (98-109); Glucose 146 mg/dL (70-99); Osmolality,Calculated 293 (280-300); Potassium 3.5 mEq/L (3.5-4.5); Sodium 140 mEq/L (136-145); eGFR For African Americans > 60 (> 60); eGFR For Non-African Americans > 60 (> 60)
[2016-12-03] MEDS: Piperacillin/Tazobactam 3.375 GM in D5% in Water (Mini-Bag+) 100 ML IVPB SCH ×3 (08:48→23:42)
[2016-12-03] MEDS: *HR* Heparin 5,000 UNIT/ML VIAL SQ SCH ×2 (08:48→18:06)
[2016-12-03] MEDS: Pantoprazole 40 MG VIAL IVP SCH (08:49)
[2016-12-03] MEDS: Ondansetron 4 MG/2 ML VIAL IVP PRN ×2 (08:56→18:06)
--- NOTE | 2016-12-03 16:32 | General Surgery Progress Note ---
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 (4) Leukocytosis Current Visit: Yes Status: Resolved Resolved with WBC of 9.3 Continue IV zosyn Monitor labs, repeat in the AM Qualifiers: Leukocytosis type: unspecified Qualified Code(s): D72.829 - Elevated white blood cell count, unspecified (5) HTN (hypertension) Current Visit: Yes Status: Chronic Mildly elevated Metoprolol switched to hydralazine due to side effects of nausea. Will continue to monitor and treat as necessary Qualifiers: Hypertension type: essential hypertension Qualified Code(s): I10 - Essential (primary) hypertension (6) DVT prophylaxis Current Visit: Yes Status: Acute EPCDs to bilateral lower extremities for DVT prophylaxis Ambulate in hallways with assistance TID Heparin 5,000 units SQ twice daily for DVT prophylaxis Subjective Patient reports: no new complaints, feels better, still having pain, pain is less, voiding w/o difficulty (hesitancy continues to improve), flatus, no bowel movement, afebrile Objective Vital Signs - Last 8 Hours Temp Pulse Resp BP Pulse Ox 12/03/16 15:02 98.4 F 55 18 151/81 96 12/03/16 11:16 97.5 F L 56 18 163/83 95 12/03/16 09:01 93 L Intake and Output 12/03/16 12/03/16 12/03/16 07:59 15:59 23:59 Intake Total 350 / 350 100 / 100 2009 Output Total 650 / 650 1000 / 1000 Balance -300 / -300 -900 / -900 2009 Intake: IV Fluids 350 / 350 100 / 100 2009 Clinimix E 5%-15% 2009 SOLUTION 2,000 ML @ 83.3 mls/hr IV .Q24H [facility] with M.v.i. Adult 10 ml Rx#: [id number] Intralipid 20% 250 ML @ 250 / 250 21 mls/hr IVPB DAILY@1700 [facility] Rx#:[id number] Zosyn 3.375 GM In 100 / 100 100 / 100 Dextrose 5% (Minibag+) 100 ML 100 ML @ 25 mls/hr IVPB Q8HR [facility] Rx#: [id number] Oral 0 / 0 Output: Urine 650 / 650 1000 / 1000 Other: Meal npo Blood Glucose* 149 121 - General physical appearance well developed, well nourished, no distress - Eyes normal ocular movement - ENT normal mucosa, atraumatic, normocephalic - Neck Neck exam: trachea midline - Respiratory normal expansion, normal respiratory effort, clear to auscultation - Cardiovascular Cardiovascular exam: Present: RRR - Abdomen Abdomen: Present: bowel sounds present, soft, distended, wound (NG to LIWS ( 1325 ml of drainage noted in past 24 hours).) - Integumentary no rash - Neurologic CN 2-12 grossly intact - Musculoskeletal normal posture - Psychiatric oriented to time, oriented to person, oriented to place, speech is normal, memory intact - Labs 12/03/16 05:50 12/03/16 05:50 Diabetes panel 12/03/16 Range/Units 05:50 Sodium 140 (136-145) mEq/L Potassium 3.5 (3.5-4.5) mEq/L Chloride 103 (98-109) mEq/L Carbon Dioxide 26 (19-29) mEq/L BUN 15 (8-26) mg/dL Creatinine 0.90 (0.72-1.25) mg/dL Glucose 146 H (70-99) mg/dL Calcium 8.7 (8.6-10.8) mg/dL Calcium panel 12/03/16 Range/Units 05:50 Calcium 8.7 (8.6-10.8) mg/dL Pituitary panel 12/03/16 Range/Units 05:50 Sodium 140 (136-145) mEq/L Potassium 3.5 (3.5-4.5) mEq/L Chloride 103 (98-109) mEq/L Carbon Dioxide 26 (19-29) mEq/L BUN 15 (8-26) mg/dL Creatinine 0.90 (0.72-1.25) mg/dL Glucose 146 H (70-99) mg/dL Calcium 8.7 (8.6-10.8) mg/dL Adrenal panel 12/03/16 Range/Units 05:50 Sodium 140 (136-145) mEq/L Potassium 3.5 (3.5-4.5) mEq/L Chloride 103 (98-109) mEq/L Carbon Dioxide 26 (19-29) mEq/L BUN 15 (8-26) mg/dL Creatinine 0.90 (0.72-1.25) mg/dL Glucose 146 H (70-99) mg/dL Calcium 8.7 (8.6-10.8) mg/dL - VTE Documentation of Mechanical Device: Intermittent pneumatic compression device Consult Discharge Plan - Plan Referrals: NO,PCP [Primary Care Provider] - <Shawna Flores - Last Filed: 12/03/16 17:54> Date of Encounter: 12/03/16 - Assessment and Plan (1) Acute perforated appendicitis Current Visit: Yes Status: Acute continue IV abx pain significantly improved some flatus but KUB done and still lots of distended bowel/colon due to ileus - not resolved yet await return of better bowel function continue ngt decompression, prn pain control OOB ambulate continue TPN (2) Ileus Current Visit: Yes Status: Acute (3) HTN (hypertension) Current Visit: Yes Status: Chronic hypertensive, start scheduled hydralazine Qualifiers: Hypertension type: essential hypertension Qualified Code(s): I10 - Essential (primary) hypertension Subjective Narrative: pt has had some flatus, no bm feels better today no significant abdominal pain no nausea Objective Vital Signs - Last 8 Hours Temp Pulse Resp BP Pulse Ox 12/03/16 15:02 98.4 F 55 18 151/81 96 12/03/16 11:16 97.5 F L 56 18 163/83 95 Intake and Output 12/03/16 12/03/16 12/03/16 07:59 15:59 23:59 Intake Total 350 / 350 100 / 100 2362 Output Total 650 / 650 1000 / 1000 Balance -300 / -300 -900 / -900 2362 Intake: IV Fluids 350 / 350 100 / 100 2362 Clinimix E 5%-15% 2009 SOLUTION 2,000 ML @ 83.3 mls/hr IV .Q24H [facility] with M.v.i. Adult 10 ml Rx#: [id number] 0.9 % Sodium Chloride 1, 353 / 353 000 ML @ 100 mls/hr IVC . Q10H [facility] Rx#:[id number] Intralipid 20% 250 ML @ 250 / 250 21 mls/hr IVPB DAILY@1700 [facility] Rx#:[id number] Zosyn 3.375 GM In 100 / 100 100 / 100 Dextrose 5% (Minibag+) 100 ML 100 ML @ 25 mls/hr IVPB Q8HR [facility] Rx#: [id number] Oral 0 / 0 Output: Urine 650 / 650 1000 / 1000 Other: Meal npo Blood Glucose* 149 121 - General physical appearance well developed, well nourished, no distress, no pain - Eyes PERRL, normal ocular movement - ENT normal mucosa, normocephalic - Neck Neck exam: trachea midline - Respiratory normal expansion, normal respiratory effort, clear to auscultation - Cardiovascular Cardiovascular exam: Present: RRR - Abdomen Abdomen: Present: bowel sounds present, soft, distended (less so today). Absent : guarding, rebound - Integumentary no rash, no growths - Neurologic CN 2-12 grossly intact - Musculoskeletal normal posture - Psychiatric oriented to time, memory intact - Labs 12/03/16 05:50 12/03/16 05:50 Diabetes panel 12/03/16 Range/Units 05:50 Sodium 140 (136-145) mEq/L Potassium 3.5 (3.5-4.5) mEq/L Chloride 103 (98-109) mEq/L Carbon Dioxide 26 (19-29) mEq/L BUN 15 (8-26) mg/dL Creatinine 0.90 (0.72-1.25) mg/dL Glucose 146 H (70-99) mg/dL Calcium 8.7 (8.6-10.8) mg/dL Calcium panel 12/03/16 Range/Units 05:50 Calcium 8.7 (8.6-10.8) mg/dL Pituitary panel 12/03/16 Range/Units 05:50 Sodium 140 (136-145) mEq/L Potassium 3.5 (3.5-4.5) mEq/L Chloride 103 (98-109) mEq/L Carbon Dioxide 26 (19-29) mEq/L BUN 15 (8-26) mg/dL Creatinine 0.90 (0.72-1.25) mg/dL Glucose 146 H (70-99) mg/dL Calcium 8.7 (8.6-10.8) mg/dL Adrenal panel 12/03/16 Range/Units 05:50 Sodium 140 (136-145) mEq/L Potassium 3.5 (3.5-4.5) mEq/L Chloride 103 (98-109) mEq/L Carbon Dioxide 26 (19-29) mEq/L BUN 15 (8-26) mg/dL Creatinine 0.90 (0.72-1.25) mg/dL Glucose 146 H (70-99) mg/dL Calcium 8.7 (8.6-10.8) mg/dL - Attending Attestation I examined this patient and my medical decision-making was reviewed with the REJOGGER/PA/Advanced Practice Nurse/Resident Physician. I agree with the documented findings, disposition and treatment plan as described except to the extent set forth below.
[2016-12-03] MEDS ORDERED: Clinimix E 5%-15% SOLUTION 2,000 ML with MVI, adult with vitamin K 10 ML IV SCH (17:00)
[2016-12-03] MEDS: *HR* HYDROmorphone 20 MG/20 ML PCA IVC PRN (17:34)
[2016-12-04] MEDS: Ondansetron 4 MG/2 ML VIAL IVP PRN ×2 (02:55→12:15)
[2016-12-04] MEDS ORDERED: Acetaminophen IV 1,000 MG/100 ML INFUS..BTL IVPB ONE (04:27)
[2016-12-04 05:11] LABS: Basophils % 0.4 %; Eosinophils # 0.4 K/mcL (0.0-0.6); Eosinophils % 4.3 %; Hematocrit 32.8 % (37.5-50.1); Hemoglobin 11.2 g/dL (12.9-16.9); Immature Granulocytes % 3.7 % (0-4); Lymphocytes # 1.2 K/mcL (0.6-4.6); Lymphocytes % 12.1 %; Mean Corpuscular HGB Conc 34.1 g/dL (31.6-35.5); Mean Corpuscular Hemoglobin 32.3 pg (28.0-33.3); Mean Corpuscular Volume 94.5 fL (83.0-100.0); Mean Platelet Volume 9.8 fL (9.4-12.4); Monocytes # 0.8 K/mcL (0.0-1.3); Monocytes % 8.1 %; Neutrophils # 7.1 K/mcL (1.6-8.9); Platelet Count 352 K/mcL (140-400); Red Blood Count 3.47 M/mcL (4.19-5.50); Red Cell Distribution Width 13.7 % (11.5-14.5); Segmented Neutrophils % 71.4 %
[2016-12-04 05:24] LABS: BUN/Creatinine Ratio 14 (6-26); Blood Urea Nitrogen 13 mg/dL (8-26); Carbon Dioxide 24 mEq/L (19-29); Glucose 167 mg/dL (70-99); Osmolality,Calculated 290 (280-300); Triglycerides 206 mg/dL (< 150); eGFR For African Americans > 60 (> 60); eGFR For Non-African Americans > 60 (> 60)
[2016-12-04 05:25] LABS: Chloride 103 mEq/L (98-109); Potassium 3.5 mEq/L (3.5-4.5); Sodium 138 mEq/L (136-145)
[2016-12-04] MEDS: *HR* Heparin 5,000 UNIT/ML VIAL SQ SCH ×2 (08:55→18:33)
[2016-12-04] MEDS: Pantoprazole 40 MG VIAL IVP SCH (08:55)
[2016-12-04] MEDS: Piperacillin/Tazobactam 3.375 GM in D5% in Water (Mini-Bag+) 100 ML IVPB SCH ×2 (08:55→16:56)
[2016-12-04] MEDS: Ketorolac 15 MG/ML VIAL IVP PRN ×2 (13:42→20:14)
--- NOTE | 2016-12-04 15:50 | General Surgery Progress Note ---
Date of Encounter: 12/04/16 Time of Encounter: 15:48 - Assessment and Plan (1) Acute perforated appendicitis Current Visit: Yes Status: Acute Plan for NG tube removal. We will start on clear liquids lear liquids we may advance her diet tomorrow. The patient's been counseled onincreasing his physical activity o Subjective Patient reports: feels better, voiding w/o difficulty Objective Vital Signs - Last 8 Hours Temp Pulse Resp BP Pulse Ox 12/04/16 15:05 98.6 F 75 16 121/72 93 L 12/04/16 10:43 98.5 F 59 16 148/87 94 L Intake and Output 12/03/16 12/04/16 12/04/16 23:59 07:59 15:59 Intake Total 2463 / 2463 100 / 100 100 / 100 Output Total 1050 / 1050 1974 1700 / 1700 Balance 1413 / 1413 -1875 / -1875 -1600 / -1600 Intake: IV Fluids 2463 / 2463 100 / 100 100 / 100 Clinimix E 5%-15% 2009 SOLUTION 2,000 ML @ 83.3 mls/hr IV .Q24H [facility] with M.v.i. Adult 10 ml Rx#: [id number] 0.9 % Sodium Chloride 1, 353 / 353 000 ML @ 100 mls/hr IVC . Q10H [facility] Rx#:[id number] Zosyn 3.375 GM In 100 / 100 100 / 100 100 / 100 Dextrose 5% (Minibag+) 100 ML 100 ML @ 25 mls/hr IVPB Q8HR [facility] Rx#: [id number] Output: Urine 500 / 500 1974 1150 / 1150 Gastric Drainage 550 / 550 550 / 550 Other: Meal NPO NPO Blood Glucose* 136 163 154 - General physical appearance well developed, well nourished, no distress - Eyes PERRL, normal ocular movement - Cardiovascular Cardiovascular exam: Present: RRR - Abdomen Abdomen: Present: soft, non tender - Labs 12/04/16 05:04 12/04/16 05:04 Diabetes panel 12/04/16 Range/Units 05:04 Sodium 138 (136-145) mEq/L Potassium 3.5 (3.5-4.5) mEq/L Chloride 103 (98-109) mEq/L Carbon Dioxide 24 (19-29) mEq/L BUN 13 (8-26) mg/dL Creatinine 0.92 (0.72-1.25) mg/dL Glucose 167 H (70-99) mg/dL Calcium 9.0 (8.6-10.8) mg/dL Triglycerides 206 H (< 150) mg/dL Calcium panel 12/04/16 Range/Units 05:04 Calcium 9.0 (8.6-10.8) mg/dL Pituitary panel 12/04/16 Range/Units 05:04 Sodium 138 (136-145) mEq/L Potassium 3.5 (3.5-4.5) mEq/L Chloride 103 (98-109) mEq/L Carbon Dioxide 24 (19-29) mEq/L BUN 13 (8-26) mg/dL Creatinine 0.92 (0.72-1.25) mg/dL Glucose 167 H (70-99) mg/dL Calcium 9.0 (8.6-10.8) mg/dL Adrenal panel 12/04/16 Range/Units 05:04 Sodium 138 (136-145) mEq/L Potassium 3.5 (3.5-4.5) mEq/L Chloride 103 (98-109) mEq/L Carbon Dioxide 24 (19-29) mEq/L BUN 13 (8-26) mg/dL Creatinine 0.92 (0.72-1.25) mg/dL Glucose 167 H (70-99) mg/dL Calcium 9.0 (8.6-10.8) mg/dL - VTE Documentation of Mechanical Device: Intermittent pneumatic compression device Consult Discharge Plan - Plan Referrals: NO,PCP [Primary Care Provider] -
[2016-12-04] MEDS ORDERED: Clinimix E 5%-15% SOLUTION 2,000 ML with MVI, adult with vitamin K 10 ML IV SCH (17:00)
[2016-12-04] MEDS: 0.9 % Sodium Chloride 1,000 ML IVC SCH ×4 (20:02→20:07)
[2016-12-05] MEDS: Piperacillin/Tazobactam 3.375 GM in D5% in Water (Mini-Bag+) 100 ML IVPB SCH ×3 (00:44→16:07)
[2016-12-05] MEDS: Ketorolac 15 MG/ML VIAL IVP PRN ×3 (04:49→23:24)
[2016-12-05] MEDS: *HR* Heparin 5,000 UNIT/ML VIAL SQ SCH ×2 (04:50→20:21)
[2016-12-05] MEDS: Pantoprazole 40 MG VIAL IVP SCH (09:15)
[2016-12-05] MEDS: Ondansetron 4 MG/2 ML VIAL IVP PRN ×2 (09:23→20:21)
--- NOTE | 2016-12-05 10:24 | General Surgery Progress Note ---
Date of Encounter: 12/07/16 Time of Encounter: 09:00 - Assessment and Plan (2) Ileus Current Visit: Yes Status: Acute Advanced to clear liquids. IV fluids- total fluid rate 100ml/hour (MIV + TPN) (3) JAYE (acute kidney injury) Current Visit: Yes Status: Resolved Resolved Avoid nephrotoxic medications. (4) Leukocytosis Current Visit: Yes Status: Resolved Resolved with WBC of 9.3 Continue IV zosyn Monitor labs, repeat in the AM Qualifiers: Leukocytosis type: unspecified Qualified Code(s): D72.829 - Elevated white blood cell count, unspecified (5) HTN (hypertension) Current Visit: Yes Status: Chronic Mildly elevated Metoprolol switched to hydralazine due to side effects of nausea. Will continue to monitor and treat as necessary Qualifiers: Hypertension type: essential hypertension Qualified Code(s): I10 - Essential (primary) hypertension (6) DVT prophylaxis Current Visit: Yes Status: Acute EPCDs to bilateral lower extremities for DVT prophylaxis Ambulate in hallways with assistance TID Heparin 5,000 units SQ twice daily for DVT prophylaxis Subjective Patient reports: still having pain, nausea, afebrile, other (headache) Objective Vital Signs - Last 8 Hours Temp Pulse Resp BP Pulse Ox 12/05/16 08:07 94 L 12/05/16 07:04 98.3 F 80 16 131/73 94 L Intake and Output 12/04/16 12/05/16 12/05/16 23:59 07:59 15:59 Intake Total 450 / 450 240 / 240 Output Total 350 / 350 175 / 175 0 / 0 Balance -350 / -350 275 / 275 240 / 240 Intake: IV Fluids 450 / 450 Intralipid 20% 250 ML @ 250 / 250 21 mls/hr IVPB DAILY@1700 [facility] Rx#:[id number] Zosyn 3.375 GM In 200 / 200 Dextrose 5% (Minibag+) 100 ML 100 ML @ 25 mls/hr IVPB Q8HR [facility] Rx#: [id number] Oral 240 / 240 Output: Urine 350 / 350 175 / 175 0 / 0 Other: Meal NPO Stool Size Small Stool Consistency formed Stool Color Brown # Bowel Movements 1 Blood Glucose* 133 164 - General physical appearance well developed, well nourished, moderate distress, moderate pain - Eyes normal ocular movement - ENT normal mucosa, atraumatic, normocephalic - Neck Neck exam: trachea midline - Respiratory normal respiratory effort, clear to auscultation - Cardiovascular Cardiovascular exam: Present: RRR - Abdomen Abdomen: Present: distended, tender - Integumentary no rash - Neurologic CN 2-12 grossly intact - Psychiatric oriented to time, oriented to person, oriented to place, speech is normal, memory intact - Labs 12/06/16 04:00 12/06/16 04:00 - VTE Documentation of Mechanical Device: Intermittent pneumatic compression device Consult Discharge Plan - Plan Referrals: NO,PCP [Primary Care Provider] -
[2016-12-05] MEDS: Metoclopramide 10 MG/2 ML VIAL IVP SCH (16:17)
[2016-12-05] MEDS ORDERED: Clinimix E 5%-15% SOLUTION 2,000 ML with MVI, adult with vitamin K 10 ML IV SCH (17:00)
[2016-12-05] MEDS: 0.9 % Sodium Chloride 1,000 ML IVC SCH ×2 (20:21→22:21)
[2016-12-06] MEDS: Metoclopramide 10 MG/2 ML VIAL IVP SCH ×5 (00:03→23:15)
[2016-12-06] MEDS: Piperacillin/Tazobactam 3.375 GM in D5% in Water (Mini-Bag+) 100 ML IVPB SCH ×4 (00:04→23:16)
[2016-12-06 04:20] LABS: Basophils # 0.1 K/mcL (0.0-0.2); Basophils % 0.6 %; Eosinophils # 0.3 K/mcL (0.0-0.6); Eosinophils % 2.9 %; Hemoglobin 12.1 g/dL (12.9-16.9); Immature Granulocytes % 1.3 % (0-4); Immature Platelets 3.2 % (1.1-6.1); Lymphocytes # 1.6 K/mcL (0.6-4.6); Mean Corpuscular HGB Conc 33.6 g/dL (31.6-35.5); Mean Corpuscular Hemoglobin 31.9 pg (28.0-33.3); Monocytes # 0.8 K/mcL (0.0-1.3); Monocytes % 7.7 %; Neutrophils # 7.9 K/mcL (1.6-8.9); Platelet Count 485 K/mcL (140-400); Red Blood Count 3.79 M/mcL (4.19-5.50); Red Cell Distribution Width 14.1 % (11.5-14.5); Segmented Neutrophils % 72.5 %
[2016-12-06] MEDS: Ondansetron 4 MG/2 ML VIAL IVP PRN ×2 (04:32→13:12)
[2016-12-06 04:36] LABS: BUN/Creatinine Ratio 20 (6-26); Calcium 9.4 mg/dL (8.6-10.8); Carbon Dioxide 25 mEq/L (19-29); Chloride 105 mEq/L (98-109); Glucose 187 mg/dL (70-99); Osmolality,Calculated 299 (280-300); Potassium 3.6 mEq/L (3.5-4.5); Sodium 140 mEq/L (136-145); eGFR For African Americans > 60 (> 60); eGFR For Non-African Americans > 60 (> 60)
[2016-12-06 04:40] LABS: Blood Urea Nitrogen 24 mg/dL (8-26)
[2016-12-06] MEDS: 0.9 % Sodium Chloride 1,000 ML IVC SCH (06:01)
[2016-12-06] MEDS: *HR* Heparin 5,000 UNIT/ML VIAL SQ SCH ×2 (06:16→20:08)
[2016-12-06] MEDS: Pantoprazole 40 MG VIAL IVP SCH (09:14)
[2016-12-06] MEDS: Ketorolac 15 MG/ML VIAL IVP PRN ×2 (09:23→19:25)
[2016-12-06] MEDS ORDERED: Dextrose Gel 15 GM PO PRN ×2 (11:44)
[2016-12-06] MEDS ORDERED: *HR* Dextrose 50 % in Water (Syg) 50 ML SYRINGE IVP PRN (11:44)
[2016-12-06] MEDS ORDERED: D5% in Water 1,000 ML IV PRN (11:44)
[2016-12-06] MEDS ORDERED: Lidocaine Jelly 6 ml Syringe MM ONE (13:42)
--- NOTE | 2016-12-06 14:47 | General Surgery Progress Note ---
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 Ambulate in hallways Qualifiers: Acute appendicitis type: with generalized peritonitis Qualified Code(s): K35.2 - Acute appendicitis with generalized peritonitis (2) Ileus Current Visit: Yes Status: Acute Bowel rest with NG tube to LIWS- insert today May have 1 cup of ice chips per shift Await return of bowel function IV fluids- total fluid rate 100ml/hour (MIV + TPN) (3) HTN (hypertension) Current Visit: Yes Status: Chronic Normotensive Hydralazine IV every 6 hours Will continue to monitor and treat as necessary Qualifiers: Hypertension type: essential hypertension Qualified Code(s): I10 - Essential (primary) hypertension (4) DVT prophylaxis Current Visit: Yes Status: Acute EPCDs to bilateral lower extremities for DVT prophylaxis Ambulate in hallways with assistance TID Add heparin 5,000 units SQ twice daily for DVT prophylaxis Subjective Patient reports: still having pain, voiding w/o difficulty, no flatus, no bowel movement, nausea, vomiting (500ml last night), afebrile, other (Unable to tolerate liquids) Objective Vital Signs - Last 8 Hours Temp Pulse Resp BP Pulse Ox 12/06/16 10:27 98.7 F 71 16 127/76 94 L Intake and Output 12/05/16 12/06/16 12/06/16 23:59 07:59 15:59 Intake Total 510 / 510 550 / 550 0 / 0 Output Total 675 / 675 700 / 700 250 / 250 Balance -165 / -165 -150 / -150 -250 / -250 Intake: IV Fluids 510 / 510 350 / 350 0.9 % Sodium Chloride 1, 410 / 410 000 ML @ 100 mls/hr IVC . Q10H [facility] Rx#:[id number] Intralipid 20% 250 ML @ 250 / 250 21 mls/hr IVPB DAILY@1700 [facility] Rx#:[id number] Zosyn 3.375 GM In 100 / 100 100 / 100 Dextrose 5% (Minibag+) 100 ML 100 ML @ 25 mls/hr IVPB Q8HR [facility] Rx#: [id number] Oral 0 / 0 200 / 200 0 / 0 Output: Urine 675 / 675 200 / 200 250 / 250 Emesis 500 / 500 Other: Meal Dinner Lunch Percent of Meal Consumed 0% 0% Blood Glucose* 163 207 - General physical appearance moderate distress, moderate pain - Eyes normal ocular movement - ENT normal mucosa, atraumatic, normocephalic - Neck Neck exam: trachea midline - Respiratory normal respiratory effort, clear to auscultation - Cardiovascular Cardiovascular exam: Present: RRR - Abdomen Abdomen: Present: soft, distended, tender Abdominal Tenderness: diffusely - Neurologic CN 2-12 grossly intact - Psychiatric oriented to time, oriented to person, oriented to place, speech is normal, memory intact - Labs 12/06/16 04:00 12/06/16 04:00 Diabetes panel 12/06/16 Range/Units 04:00 Sodium 140 (136-145) mEq/L Potassium 3.6 (3.5-4.5) mEq/L Chloride 105 (98-109) mEq/L Carbon Dioxide 25 (19-29) mEq/L BUN 24 D (8-26) mg/dL Creatinine 1.21 (0.72-1.25) mg/dL Glucose 187 H (70-99) mg/dL Calcium 9.4 (8.6-10.8) mg/dL Calcium panel 12/06/16 Range/Units 04:00 Calcium 9.4 (8.6-10.8) mg/dL Pituitary panel 12/06/16 Range/Units 04:00 Sodium 140 (136-145) mEq/L Potassium 3.6 (3.5-4.5) mEq/L Chloride 105 (98-109) mEq/L Carbon Dioxide 25 (19-29) mEq/L BUN 24 D (8-26) mg/dL Creatinine 1.21 (0.72-1.25) mg/dL Glucose 187 H (70-99) mg/dL Calcium 9.4 (8.6-10.8) mg/dL Adrenal panel 12/06/16 Range/Units 04:00 Sodium 140 (136-145) mEq/L Potassium 3.6 (3.5-4.5) mEq/L Chloride 105 (98-109) mEq/L Carbon Dioxide 25 (19-29) mEq/L BUN 24 D (8-26) mg/dL Creatinine 1.21 (0.72-1.25) mg/dL Glucose 187 H (70-99) mg/dL Calcium 9.4 (8.6-10.8) mg/dL - VTE Documentation of Mechanical Device: Intermittent pneumatic compression device Consult Discharge Plan - Plan Referrals: NO,PCP [Primary Care Provider] - - Attending Attestation I examined this patient and my medical decision-making was reviewed with the AUTOMATIC PILOT MECHANIC/PA/Advanced Practice Nurse/Resident Physician. I agree with the documented findings, disposition and treatment plan as described except to the extent set forth below.
[2016-12-06] MEDS: Clinimix E 5%-15% SOLUTION 2,000 ML with MVI, adult with vitamin K 10 ML IV SCH (16:55)
[2016-12-06] MEDS: *HR* HYDROmorphone 20 MG/20 ML PCA IVC PRN (19:29)
[2016-12-07] MEDS: Insulin LISPRO 300 UNITS/3 ML VIAL SQ SCH ×6 (00:39→23:45)
[2016-12-07] MEDS: Ketorolac 15 MG/ML VIAL IVP PRN ×2 (03:10→23:02)
[2016-12-07 04:16] LABS: Magnesium 2.1 mg/dL (1.6-2.6); Phosphorous 4.3 mg/dL (2.3-4.7)
[2016-12-07] MEDS: Metoclopramide 10 MG/2 ML VIAL IVP SCH ×4 (06:32→23:52)
[2016-12-07] MEDS: *HR* Heparin 5,000 UNIT/ML VIAL SQ SCH ×2 (06:32→18:11)
[2016-12-07] MEDS: Piperacillin/Tazobactam 3.375 GM in D5% in Water (Mini-Bag+) 100 ML IVPB SCH ×3 (08:11→23:52)
[2016-12-07] MEDS: Pantoprazole 40 MG VIAL IVP SCH (08:12)
--- NOTE | 2016-12-07 14:33 | General Surgery Progress Note ---
Date of Encounter: 12/07/16 Time of Encounter: 13:00 - Assessment and Plan (1) Acute appendicitis Current Visit: No Status: Inactive Acute perforated appendicitis Bowel rest with NG tube to LIWS IV fluids- Total fluid rate 100ml/hour (MIV + TPN) IV antibiotics- Zosyn CT complete yesterday- reviewed and discussed with Dr. Beaulieu Possible Diagnostic laparoscopy with Dr. Beaulieu tomorrow 12/08/16 Supportive care/pain control- SEWER Ambulate in hallways Qualifiers: Acute appendicitis type: with generalized peritonitis Qualified Code(s): K35.2 - Acute appendicitis with generalized peritonitis (2) Ileus Current Visit: Yes Status: Acute Bowel rest with NG tube to LIWS May have 1 cup of ice chips per shift Await return of bowel function IV fluids- total fluid rate 100ml/hour (MIV + TPN) (3) HTN (hypertension) Current Visit: Yes Status: Chronic Normotensive Hydralazine IV every 6 hours Will continue to monitor and treat as necessary Qualifiers: Hypertension type: essential hypertension Qualified Code(s): I10 - Essential (primary) hypertension (4) DVT prophylaxis Current Visit: Yes Status: Acute EPCDs to bilateral lower extremities for DVT prophylaxis Ambulate in hallways with assistance TID Continue heparin 5,000 units SQ twice daily for DVT prophylaxis Subjective Patient reports: feels better, still having pain, pain is less, voiding w/o difficulty, flatus, bowel movement (X3), afebrile Objective Vital Signs - Last 8 Hours Temp Pulse Resp BP Pulse Ox 12/07/16 12:00 98.4 F 85 14 124/65 96 12/07/16 08:29 97.8 F 66 16 129/72 100 Intake and Output 12/06/16 12/07/16 12/07/16 23:59 07:59 15:59 Intake Total 100 / 100 350 / 350 100 / 100 Output Total 1300 / 1300 1650 / 1650 650 / 650 Balance -1200 / -1200 -1300 / -1300 -550 / -550 Intake: IV Fluids 100 / 100 350 / 350 100 / 100 Intralipid 20% 250 ML @ 250 / 250 21 mls/hr IVPB DAILY@1700 [facility] Rx#:[id number] Zosyn 3.375 GM In 100 / 100 100 / 100 100 / 100 Dextrose 5% (Minibag+) 100 ML 100 ML @ 25 mls/hr IVPB Q8HR [facility] Rx#: [id number] Oral 0 / 0 0 / 0 Output: Urine 550 / 550 650 / 650 150 / 150 Gastric Drainage 750 / 750 1000 / 1000 500 / 500 Other: Stool Size Large Stool Consistency loose Stool Color Green # Bowel Movements 1 Blood Glucose* 145 127 132 - General physical appearance well developed, well nourished, no distress - Eyes normal ocular movement - ENT normal mucosa, atraumatic, normocephalic - Neck Neck exam: trachea midline - Respiratory normal respiratory effort, clear to auscultation - Cardiovascular Cardiovascular exam: Present: RRR - Abdomen Abdomen: Present: bowel sounds present (hypoactive), soft, tender (mild, generalized), wound (NG tube to LIWS with 3,850ml of drainage over the past 24 hours) - Neurologic CN 2-12 grossly intact - Psychiatric oriented to time, oriented to person, oriented to place, speech is normal, memory intact - Labs 12/06/16 04:00 12/06/16 04:00 Calcium panel 12/07/16 Range/Units 03:45 Phosphorus 4.3 (2.3-4.7) mg/dL - VTE Documentation of Mechanical Device: Intermittent pneumatic compression device Consult Discharge Plan - Plan Referrals: NO,PCP [Primary Care Provider] -
[2016-12-07] MEDS: Ondansetron 4 MG/2 ML VIAL IVP PRN (15:47)
[2016-12-07] MEDS ORDERED: Clinimix E 5%-15% SOLUTION 2,000 ML with MVI, adult with vitamin K 10 ML IV SCH (17:00)
[2016-12-07] MEDS: 0.9 % Sodium Chloride 1,000 ML IVC SCH ×3 (19:39→23:52)
[2016-12-08] MEDS: Insulin LISPRO 300 UNITS/3 ML VIAL SQ SCH ×4 (04:56→23:52)
[2016-12-08] MEDS: *HR* Heparin 5,000 UNIT/ML VIAL SQ SCH ×2 (06:13→18:03)
[2016-12-08] MEDS: Metoclopramide 10 MG/2 ML VIAL IVP SCH ×4 (06:13→23:53)
[2016-12-08] MEDS: Piperacillin/Tazobactam 3.375 GM in D5% in Water (Mini-Bag+) 100 ML IVPB SCH ×2 (09:28→23:53)
[2016-12-08] MEDS: Pantoprazole 40 MG VIAL IVP SCH (09:28)
[2016-12-08] MEDS: Ondansetron 4 MG/2 ML VIAL IVP PRN (11:01)
--- NOTE | 2016-12-08 12:00 | Event Note ---
Date of Encounter: 12/08/16 Time of Encounter: 11:45 Discussed patient case with Dr. Beaulieu. Patient is failing to progress with conservative therapy. Will plan for proceed with diagnostic laparosocpy today with Dr. Beaulieu. Risks, benefits, alternatives and expected outcomes reviewed with the patient and he is in agreement to proceed. Consent complete.
--- NOTE | 2016-12-08 12:39 | Anesthesia Evaluation PreOp ---
Date of Encounter: 12/08/16 Time of Encounter: 12:37 - Past History Planned Operation: dx lap Cardiac History: HTN Pulmonary History: Snore WINDMILL MECHANIC History: Denies Any Significant HX Other Medical History: Denies Any Significant HX Alcohol Use: occasionally Drug use: none Medications and Allergies Lisinopril [Zestril] 40 mg PO DAILY 11/26/16 [History] Multivitamin/Iron/Folic Acid [Centrum Complete Multivit Tab] 1 tab PO DAILY [History] Allergies No Known Allergies Allergy (Verified 11/26/16 07:21) - Meds/Allergy Pre-op Review Medications Reviewed: Yes Allergies Reviewed: Yes Beta Blockers on Current Med List: No Anesthesia Results - Labs 12/06/16 04:00 12/06/16 04:00 Anesthesia Exam Vital Signs/O2 Sat/Glucose, Most Current Temp Pulse Resp BP Pulse Ox 12/08/16 10:18 99.4 F 70 16 129/72 93 L Height: 1.85 Weight: 96 NPO (# of Hours): >8 - HEENT Pupil (Motor): Pupils equal, EOMI Mallampati: I Teeth: Poor dentition Oral Opening: Greater than 3 - WINDMILL MECHANIC LOC: Oriented WINDMILL MECHANIC Motor: Normal RUE, Normal LUE, Normal RLE, Normal LLE, Normal Face WINDMILL MECHANIC Sensory: Normal: RUE, LUE, RLE, LLE, Face - Cardiac Rhythm: Regular Murmur: None - Pulmonary Breath Sounds: bilateral Clear Respiratory Effort: Symmetrical - Additional Findings pt has rue DL PICC, one didicated port for tpn (we will leave this running). CNA CAREGIVER and zosyn. We will complete zosyn and stop scale tester. Pt also has ngt Anesthesia Assess/Plan ASA Score: 2 Modified [place] Scale for Level of Consciousness: Cooperative, oriented, and tranquil Anesthetic Plan: General Monitoring Plan: Standard Monitors Recovery Plan: PACU
[2016-12-08] MEDS ORDERED: *HR* Succinylcholine 200 MG/10 ML VIAL IVP ONE (13:04)
[2016-12-08] MEDS ORDERED: Ketorolac 30 MG/ML VIAL ONE (13:04)
[2016-12-08] MEDS ORDERED: Neostigmine Methylsulfate 3 MG/3 ML SYRINGE ONE (13:04)
[2016-12-08] MEDS ORDERED: Ondansetron 4 MG/2 ML VIAL ONE (13:04)
[2016-12-08] MEDS ORDERED: Lidocaine -MPF 4% 5 ML AMPUL ONE (13:04)
[2016-12-08] MEDS ORDERED: *HR* Propofol 200 MG/20 ML VIAL IVP ONE (13:04)
[2016-12-08] MEDS ORDERED: *HR* FentaNYL (PF) 100 MCG/2 ML VIAL ONE (13:04)
[2016-12-08] MEDS ORDERED: Dexamethasone 4 MG/ML VIAL ONE (13:04)
[2016-12-08] MEDS ORDERED: Lidocaine -MPF 2% 2 ML VIAL ONE (13:04)
[2016-12-08] MEDS ORDERED: *HR* Midazolam HCl 2 MG/2 ML VIAL ONE ×2 (13:05→16:00)
[2016-12-08] MEDS ORDERED: *HR* HYDROmorphone 2 MG/ML SYRINGE ONE (14:27)
--- NOTE | 2016-12-08 14:50 | Electrocardiograph Report ---
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
[2016-12-08] MEDS ORDERED: Ondansetron 4 MG/2 ML VIAL IVP ONE ×2 (15:22→17:22)
[2016-12-08] MEDS ORDERED: *HR* Promethazine 25 MG/ML VIAL IVP PRN ×2 (15:22→17:22)
--- NOTE | 2016-12-08 15:36 | Operative Note ---
Date of procedure: 12/08/16 Pre-op diagnosis: Small Bowel Obstruction Procedure: Diagnostic Laparoscopy Exploratory laparotomy with lysis of adhesions 1 hour Repair of small bowel enterotomy 2 Appendectomy Anesthesia: JOSESITO Surgeon: Maulik Beaulieu Estimated blood loss (cc): 100 Specimen: Appendix Condition: stable Disposition: same day Procedure in Detail: After informed consent, the patient was taken to the operating room placed in the supine position. After adequate sedation and anesthesia abdomen was prepped and draped. A 5 mm cannula was placed in the left upper quadrant under direct visualization. Pneumoperitoneum was created. Once in place I was able to identify several dilated loops of small bowel. There were 2 other 5 mm cannulas placed in the left abdomen and inferior abdomen. I attempted to perform an evaluation of the small bowel. However there are multiple adhesions identified. One of which was lysed and due to the extreme nature of the dilation of the small bowel and enterotomy was created. This was an expected outcome for the procedure. Once this was identified then a laparotomy was performed. The small bowel was eviscerated from the abdomen. The enterotomy was repaired with 3-0 silk suture 2. One of the serosal tear was identified however was not full-thickness and it to was repaired with 3-0 silk suture. The right colon was delivered into the operative field as well. The white line of Toldt was taken down with blunt cautery. Once it was visualized and an appendectomy was performed. The base the appendix was oversewn with 3-0 silk suture 2 and the vascular pedicle was secured with an 0 Vicryl suture. Multiple other small bowel loops were adhesed in the pelvis due to the previous abscess. There were lysed. As a serosal tear to the rectum was identified and it was closed with 3-0 silk suture 3. The abdomen was irrigated with 2 L of warm saline. After suctioning the abdomen dry A 19-Sami Aftab drain was placed in the pelvis. Seprafilm was placed over the omentum and the abdomen was closed with PDS suture and running fashion. Skin was closed ammon. He tolerated the procedure well.
[2016-12-08] MEDS: *HR* HYDROmorphone (PF) 1 MG/ML SYRINGE IVP PRN ×4 (15:56→16:14)
[2016-12-08] MEDS: *HR* Midazolam HCl 2 MG/2 ML VIAL IVP PRN ×2 (16:01→16:06)
[2016-12-08] MEDS ORDERED: Acetaminophen IV 1,000 MG/100 ML INFUS..BTL ONE (16:10)
[2016-12-08] MEDS ORDERED: Acetaminophen IV 1,000 MG/100 ML INFUS..BTL IVPB ONE (16:21)
[2016-12-08 16:38] LABS: ABG Base Excess -3.8 mEq/L (-2.0 to 3.0); ABG Glucose 183 mg/dL (60-95); ABG HCO3 21.5 mEQ/L (21-27); ABG Hematocrit 42 % (35-51); ABG Ionized Calcium 1.16 mmol/L (1.15-1.35); ABG Oxygen Saturation 93 % (95-98); ABG PCO2 39 mmHg (35-45); ABG PH 7.35 pH Units (7.32-7.45); ABG PO2 69 mmHg (85-104); ABG TCO2 22.7 mEq/L (20-26)
[2016-12-08] MEDS ORDERED: Clinimix E 5%-15% SOLUTION 2,000 ML with MVI, adult with vitamin K 10 ML IV SCH (17:00)
[2016-12-08] MEDS ORDERED: Naloxone 0.4 MG/ML INJ IVP PRN (17:22)
[2016-12-08] MEDS ORDERED: D10% in Water 500 ML IV PRN (17:22)
[2016-12-08] MEDS ORDERED: D5% in Water 1,000 ML IV PRN (17:22)
[2016-12-08] MEDS ORDERED: *HR* HYDROmorphone (PF) 1 MG/ML SYRINGE IVP PRN (17:22)
[2016-12-08] MEDS ORDERED: Dextrose Gel 15 GM PO PRN ×2 (17:22)
[2016-12-08] MEDS ORDERED: *HR* Dextrose 50 % in Water (Syg) 50 ML SYRINGE IVP PRN (17:22)
[2016-12-08] MEDS ORDERED: Chloraseptic Spray 177 ML BOTTLE MM PRN (17:22)
[2016-12-08] MEDS: Clinimix E 5%-15% SOLUTION 2,000 ML with MVI, adult with vitamin K 10 ML IV SCH (17:45)
[2016-12-08] MEDS: 0.9 % Sodium Chloride 1,000 ML IVC SCH (17:55)
--- NOTE | 2016-12-08 18:04 | Anesthesia Evaluation Post Op ---
Date of Encounter: 12/08/16 Time of Encounter: 17:30 - Vital Signs Vital Signs: Vital Signs/O2 Sat/Glucose, Most Current Temp Pulse Resp BP Pulse Ox 12/08/16 17:26 100.0 F H 114 16 111/68 92 L 12/08/16 16:58 117 22 110/58 93 L 12/08/16 16:48 99.6 F 113 24 98/66 93 L 12/08/16 16:38 111 24 119/60 93 L 12/08/16 16:28 112 28 117/61 95 12/08/16 16:18 99.6 F 118 38 139/91 94 L 12/08/16 16:08 121 40 138/73 93 L 12/08/16 15:58 124 60 141/86 90 L 12/08/16 15:53 110 24 160/74 93 L 12/08/16 15:48 98.5 F 109 22 145/83 95 - Lungs Lungs: Clear Ascult./Percussion - Airway Airway: Non-obstructed - Cardiovascular Regular Rate - Mental Status Mental Status: Alert & Oriented, Answers Appropriately - Pain Pain Scale: 0 - Nausea Vomiting Nausea Vomiting: Not Present - Hydration Hydration: Ice chips - Discharge PostOp Status: Transfer Patient to floor
[2016-12-08] MEDS: *HR* HYDROmorphone 20 MG/20 ML PCA IVC PRN (19:22)
[2016-12-08] MEDS: Ketorolac 15 MG/ML VIAL IVP PRN (19:58)
[2016-12-09] MEDS: Ketorolac 15 MG/ML VIAL IVP PRN ×2 (03:27→10:27)
[2016-12-09 04:26] LABS: Calcium 8.6 mg/dL (8.6-10.8)
[2016-12-09 04:30] LABS: Potassium 4.7 mEq/L (3.5-4.5)
[2016-12-09] MEDS: *HR* Heparin 5,000 UNIT/ML VIAL SQ SCH ×2 (06:11→18:17)
[2016-12-09] MEDS: Insulin LISPRO 300 UNITS/3 ML VIAL SQ SCH ×3 (06:12→17:57)
[2016-12-09] MEDS: Metoclopramide 10 MG/2 ML VIAL IVP SCH ×3 (06:13→17:58)
[2016-12-09] MEDS: Piperacillin/Tazobactam 3.375 GM in D5% in Water (Mini-Bag+) 100 ML IVPB SCH ×2 (08:22→16:39)
[2016-12-09] MEDS: Pantoprazole 40 MG VIAL IVP SCH (08:23)
--- NOTE | 2016-12-09 10:52 | General Surgery Progress Note ---
Date of Encounter: 12/09/16 Time of Encounter: 10:30 - Assessment and Plan (1) Acute perforated appendicitis Current Visit: Yes Status: Acute The patient had exploratory laparotomy and lysis of adhesions yesterday. The patient did quite well after surgery. His white blood cell count is normal. Vital signs are stable. He has an expected postoperative ileus. We will continue nasogastric tube drainage and total parenteral nutrition. Subjective Narrative: Postop day 1 from exploratory laparotomy, lysis of adhesions and repair of enterotomy. The patient is on TPN. Vital signs are stable. He does have postoperative pain that is expected from exploratory laparotomy. He also has expected ileus. Objective Vital Signs - Last 8 Hours Temp Pulse Resp BP Pulse Ox 12/09/16 10:43 98.4 F 99 16 138/75 90 L 12/09/16 07:41 97.9 F 82 16 157/85 93 L 12/09/16 07:05 90 L 12/09/16 04:46 98.8 F 97 15 103/60 90 L Intake and Output 12/08/16 12/09/16 12/09/16 23:59 07:59 15:59 Intake Total 300 / 300 100 / 100 1743 / 1743 Output Total 330 / 330 760 / 760 150 / 150 Balance -30 / -30 -660 / -660 1593 / 1593 Intake: IV Fluids 300 / 300 100 / 100 1743 / 1743 Clinimix E 5%-15% 1162 / 1162 SOLUTION 2,000 ML @ 83.3 mls/hr IV .Q24H [facility] with M.v.i. Adult 10 ml Rx#: [id number] 0.9 % Sodium Chloride 1, 200 / 200 581 / 581 000 ML @ 100 mls/hr IVC . Q10H [facility] Rx#:[id number] Ofirmev 1,000 mg In 100 100 / 100 ml @ 400 mls/hr IVPB ONCE ONE Rx#:[id number] Zosyn 3.375 GM In 100 / 100 Dextrose 5% (Minibag+) 100 ML 100 ML @ 25 mls/hr IVPB Q8HR [facility] Rx#: [id number] Output: Urine 300 / 300 150 / 150 Gastric Drainage 400 / 400 0 / 0 Wound Drainage 330 / 330 60 / 60 0 / 0 Right Lower Abdomen 150 / 150 60 / 60 0 / 0 Other: Blood Glucose* 166 162 - General physical appearance well developed, well nourished, other (Nasogastric tube in place and functioning ) - Respiratory normal expansion, normal respiratory effort, clear to percussion, clear to auscultation - Cardiovascular Cardiovascular exam: Present: RRR, no murmurs/rubs/gallops - Abdomen Abdomen: Present: tender Additional Comments: Incision is clean and dry. No bowel sounds, expected postoperative ileus. - Neurologic normal coordination, normal sensation - Psychiatric oriented to time, oriented to person, oriented to place, speech is normal, memory intact - Labs 12/06/16 04:00 12/09/16 03:56 Diabetes panel 12/09/16 Range/Units 03:56 Sodium 132 L D (136-145) mEq/L Potassium 4.7 H D (3.5-4.5) mEq/L Chloride 104 (98-109) mEq/L Carbon Dioxide 17 L (19-29) mEq/L BUN 47 H D (8-26) mg/dL Creatinine 1.87 H D (0.72-1.25) mg/dL Glucose 164 H (70-99) mg/dL Calcium 8.6 (8.6-10.8) mg/dL Calcium panel 12/09/16 Range/Units 03:56 Calcium 8.6 (8.6-10.8) mg/dL Pituitary panel 12/09/16 Range/Units 03:56 Sodium 132 L D (136-145) mEq/L Potassium 4.7 H D (3.5-4.5) mEq/L Chloride 104 (98-109) mEq/L Carbon Dioxide 17 L (19-29) mEq/L BUN 47 H D (8-26) mg/dL Creatinine 1.87 H D (0.72-1.25) mg/dL Glucose 164 H (70-99) mg/dL Calcium 8.6 (8.6-10.8) mg/dL Adrenal panel 12/09/16 Range/Units 03:56 Sodium 132 L D (136-145) mEq/L Potassium 4.7 H D (3.5-4.5) mEq/L Chloride 104 (98-109) mEq/L Carbon Dioxide 17 L (19-29) mEq/L BUN 47 H D (8-26) mg/dL Creatinine 1.87 H D (0.72-1.25) mg/dL Glucose 164 H (70-99) mg/dL Calcium 8.6 (8.6-10.8) mg/dL - VTE Documentation of Mechanical Device: Intermittent pneumatic compression device Consult Discharge Plan - Plan Referrals: NO,PCP [Primary Care Provider] -
[2016-12-09] MEDS: 0.9 % Sodium Chloride 1,000 ML IVC SCH (16:38)
[2016-12-09] MEDS: Clinimix E 5%-15% SOLUTION 2,000 ML with MVI, adult with vitamin K 10 ML IV SCH ×2 (16:40→16:41)
[2016-12-09] MEDS ORDERED: Clinimix E 5%-15% SOLUTION 2,000 ML with MVI, adult with vitamin K 10 ML IV SCH (17:00)
[2016-12-09] MEDS: *HR* HYDROmorphone 20 MG/20 ML PCA IVC PRN (23:00)
[2016-12-10] MEDS: Metoclopramide 10 MG/2 ML VIAL IVP SCH ×4 (01:04→17:50)
[2016-12-10] MEDS: Piperacillin/Tazobactam 3.375 GM in D5% in Water (Mini-Bag+) 100 ML IVPB SCH ×3 (01:04→16:21)
[2016-12-10] MEDS: Insulin LISPRO 300 UNITS/3 ML VIAL SQ SCH ×4 (01:05→17:46)
[2016-12-10] MEDS: 0.9 % Sodium Chloride 1,000 ML IVC SCH ×4 (04:14→19:29)
[2016-12-10] MEDS: *HR* Heparin 5,000 UNIT/ML VIAL SQ SCH ×2 (06:16→18:17)
[2016-12-10] MEDS: Pantoprazole 40 MG VIAL IVP SCH (07:33)
--- NOTE | 2016-12-10 10:32 | General Surgery Progress Note ---
Date of Encounter: 12/10/16 Time of Encounter: 10:15 - Assessment and Plan (1) Acute perforated appendicitis Current Visit: Yes Status: Acute The patient had exploratory laparotomy and lysis of adhesions yesterday. The patient did quite well after surgery. His white blood cell count is normal. Vital signs are stable. He has an expected postoperative ileus. We will continue nasogastric tube drainage and total parenteral nutrition. 12/10/2016. The patient feels better today. He continues to have an expected postoperative ileus. We will continue nasogastric tube drainage and Rahul- Negron drainage today. We will work on ambulation and get him up to a chair. Continue antibiotics at this point. Subjective Narrative: The patient feels well. He has not ambulated since surgery. We will plan on having him ambulating get up to a chair today. The abdomen is quiet with no bowel sounds. Nasogastric tube is functioning normally. Incision is clean and dry. Rahul-Negron drain is serosanguineous Objective Vital Signs - Last 8 Hours Temp Pulse Resp BP Pulse Ox 12/10/16 07:05 94 L 12/10/16 06:13 98.5 F 93 18 132/77 94 L 12/10/16 04:09 98.1 F 99 18 148/72 93 L Intake and Output 12/09/16 12/10/16 12/10/16 23:59 07:59 15:59 Intake Total 582 / 582 1831 / 1831 0 / 0 Output Total 1010 / 1010 375 / 375 200 / 200 Balance -428 / -428 1456 / 1456 -200 / -200 Intake: IV Fluids 582 / 582 1831 / 1831 Clinimix E 5%-15% 400 / 400 1228 / 1228 SOLUTION 2,000 ML @ 83.3 mls/hr IV .Q24H [facility] with M.v.i. Adult 10 ml Rx#: [id number] 0.9 % Sodium Chloride , / 82 253 / 253 000 ML @ 100 mls/hr IVC . Q10H [facility] Rx#:[id number] Intralipid 20% 250 ML @ 250 / 250 21 mls/hr IVPB DAILY@1700 [facility] Rx#:[id number] Zosyn 3.375 GM In 100 / 100 100 / 100 Dextrose 5% (Minibag+) 100 ML 100 ML @ 25 mls/hr IVPB Q8HR [facility] Rx#: [id number] Oral 0 / 0 0 / 0 0 / 0 Output: Urine 600 / 600 375 / 375 200 / 200 Gastric Drainage 350 / 350 0 / 0 Wound Drainage 60 / 60 0 / 0 0 / 0 Right Lower Abdomen 60 / 60 0 / 0 0 / 0 Other: Meal NPO Percent of Meal Consumed 0% Blood Glucose* 152 161 - General physical appearance well developed, well nourished - Respiratory normal expansion, normal respiratory effort, clear to percussion, clear to auscultation - Cardiovascular Cardiovascular exam: Present: RRR, no murmurs/rubs/gallops - Abdomen Abdomen: Present: soft, non tender (No bowel sounds) - Incision Incision: Present: clean and dry - Labs 12/06/16 04:00 12/09/16 03:56 - VTE Documentation of Mechanical Device: Intermittent pneumatic compression device Consult Discharge Plan - Plan Referrals: NO,PCP [Primary Care Provider] -
[2016-12-10] MEDS: Ondansetron 4 MG/2 ML VIAL IVP PRN (16:33)
[2016-12-10] MEDS: Clinimix E 5%-15% SOLUTION 2,000 ML with MVI, adult with vitamin K 10 ML IV SCH ×2 (16:35→19:29)
[2016-12-10] MEDS ORDERED: Clinimix E 5%-15% SOLUTION 2,000 ML with MVI, adult with vitamin K 10 ML IV SCH ×2 (17:00)
[2016-12-11] MEDS: Metoclopramide 10 MG/2 ML VIAL IVP SCH ×4 (00:48→18:20)
[2016-12-11] MEDS: Piperacillin/Tazobactam 3.375 GM in D5% in Water (Mini-Bag+) 100 ML IVPB SCH ×3 (00:49→16:49)
[2016-12-11] MEDS: Insulin LISPRO 300 UNITS/3 ML VIAL SQ SCH ×4 (00:50→17:33)
[2016-12-11] MEDS: *HR* Heparin 5,000 UNIT/ML VIAL SQ SCH ×2 (06:00→18:19)
[2016-12-11] MEDS: 0.9 % Sodium Chloride 1,000 ML IVC SCH ×2 (06:02→16:51)
[2016-12-11] MEDS: Pantoprazole 40 MG VIAL IVP SCH (09:06)
[2016-12-11] MEDS: *HR* HYDROmorphone 20 MG/20 ML PCA IVC PRN (09:31)
[2016-12-11 10:01] LABS: BUN/Creatinine Ratio 25 (6-26); Blood Urea Nitrogen 22 mg/dL (8-26); Calcium 8.8 mg/dL (8.6-10.8); Carbon Dioxide 24 mEq/L (19-29); Chloride 100 mEq/L (98-109); Glucose 146 mg/dL (70-99); Magnesium 1.6 mg/dL (1.6-2.6); Osmolality,Calculated 278 (280-300); Phosphorous 2.7 mg/dL (2.3-4.7); Potassium 4.1 mEq/L (3.5-4.5); Sodium 131 mEq/L (136-145); eGFR For African Americans > 60 (> 60); eGFR For Non-African Americans > 60 (> 60)
--- NOTE | 2016-12-11 12:34 | General Surgery Progress Note ---
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 See above plan. (3) Cellulitis Current Visit: Yes Status: Acute Abdominal incision site open and packed today. Continue IV antibiotics- zosyn Check AM labs Qualifiers: Site of cellulitis: trunk Site of cellulitis of trunk: abdominal wall Qualified Code(s): L03.311 - Cellulitis of abdominal wall (4) JAYE (acute kidney injury) Current Visit: Yes Status: Resolved Improved, Cr 0.88 Avoid nephrotoxic medications. (5) HTN (hypertension) Current Visit: Yes Status: Chronic Mildly elevated Continue hydralazine scheduled and prn. Will continue to monitor and treat as necessary Qualifiers: Hypertension type: essential hypertension Qualified Code(s): I10 - Essential (primary) hypertension (6) DVT prophylaxis Current Visit: Yes Status: Acute EPCDs to bilateral lower extremities for DVT prophylaxis Heparin 5,000 units SQ twice daily for DVT prophylaxis Subjective Patient reports: no new complaints, still having pain (expected post-operative) , no flatus, no bowel movement, afebrile (max temp 99.2) Objective Vital Signs - Last 8 Hours Temp Pulse Resp BP Pulse Ox 12/11/16 10:45 97.9 F 80 16 131/75 95 12/11/16 06:47 98.4 F 94 16 133/75 94 L Intake and Output 12/10/16 12/11/16 12/11/16 23:59 07:59 15:59 Intake Total 524 / 524 100 / 100 1915 Output Total 620 / 620 850 / 850 410 / 410 Balance -96 / -96 -750 / -750 1506 / 1506 Intake: IV Fluids 524 / 524 100 / 100 1915 Clinimix E 5%-15% 341 / 341 1388 / 1388 SOLUTION 2,000 ML @ 83.3 mls/hr IV .Q24H [facility] with M.v.i. Adult 10 ml Rx#: [id number] 0.9 % Sodium Chloride 1, 83 / 83 278 / 278 000 ML @ 100 mls/hr IVC . Q10H [facility] Rx#:[id number] Intralipid 20% 250 ML @ 250 / 250 21 mls/hr IVPB DAILY@1700 [facility] Rx#:[id number] Zosyn 3.375 GM In 100 / 100 100 / 100 Dextrose 5% (Minibag+) 100 ML 100 ML @ 25 mls/hr IVPB Q8HR [facility] Rx#: [id number] Oral 0 / 0 0 / 0 Output: Urine 550 / 550 850 / 850 400 / 400 Gastric Drainage 50 / 50 Wound Drainage 20 / 20 0 / 0 10 / 10 Right Lower Abdomen 20 / 20 0 / 0 10 Other: Meal NPO # Bowel Movements 0 Weight 97.6 kg Blood Glucose* 128 150 166 Patient Weight 12/11/16 23:59 Weight 97.6 kg - General physical appearance well developed, well nourished, moderate distress - Eyes normal ocular movement - ENT normal mucosa, atraumatic, normocephalic - Neck Neck exam: trachea midline - Respiratory normal respiratory effort, clear to auscultation - Cardiovascular Cardiovascular exam: Present: RRR - Abdomen Abdomen: Present: soft, tender (expected post operative), wound (LORENZA drain (10ml serous fluid noted since midnight)). Absent: bowel sounds present - Incision Incision: Present: clean and dry (midline staple.) - Integumentary no rash - Neurologic CN 2-12 grossly intact - Psychiatric oriented to time, oriented to person, oriented to place, speech is normal, memory intact - Labs 12/13/16 04:59 12/12/16 04:10 Diabetes panel 12/11/16 Range/Units 09:21 Sodium 131 L (136-145) mEq/L Potassium 4.1 (3.5-4.5) mEq/L Chloride 100 (98-109) mEq/L Carbon Dioxide 24 (19-29) mEq/L BUN 22 D (8-26) mg/dL Creatinine 0.88 D (0.72-1.25) mg/dL Glucose 146 H (70-99) mg/dL Calcium 8.8 (8.6-10.8) mg/dL Calcium panel 12/11/16 12/11/16 Range/Units 09:21 09:21 Calcium 8.8 (8.6-10.8) mg/dL Phosphorus 2.7 (2.3-4.7) mg/dL Pituitary panel 12/11/16 Range/Units 09:21 Sodium 131 L (136-145) mEq/L Potassium 4.1 (3.5-4.5) mEq/L Chloride 100 (98-109) mEq/L Carbon Dioxide 24 (19-29) mEq/L BUN 22 D (8-26) mg/dL Creatinine 0.88 D (0.72-1.25) mg/dL Glucose 146 H (70-99) mg/dL Calcium 8.8 (8.6-10.8) mg/dL Adrenal panel 12/11/16 Range/Units 09:21 Sodium 131 L (136-145) mEq/L Potassium 4.1 (3.5-4.5) mEq/L Chloride 100 (98-109) mEq/L Carbon Dioxide 24 (19-29) mEq/L BUN 22 D (8-26) mg/dL Creatinine 0.88 D (0.72-1.25) mg/dL Glucose 146 H (70-99) mg/dL Calcium 8.8 (8.6-10.8) mg/dL - VTE Documentation of Mechanical Device: Intermittent pneumatic compression device Consult Discharge Plan - Plan Referrals: NO,PCP [Primary Care Provider] -
[2016-12-11] MEDS: *HR* Morphine 30 MG/ 30 ML PCA IVC PRN (15:53)
[2016-12-11] MEDS ORDERED: Clinimix E 5%-15% SOLUTION 2,000 ML with MVI, adult with vitamin K 10 ML, Trace Eleme... IV SCH (17:00)
[2016-12-12] MEDS: Insulin LISPRO 300 UNITS/3 ML VIAL SQ SCH ×4 (00:02→17:41)
[2016-12-12] MEDS: Piperacillin/Tazobactam 3.375 GM in D5% in Water (Mini-Bag+) 100 ML IVPB SCH ×3 (00:37→16:42)
[2016-12-12] MEDS: Metoclopramide 10 MG/2 ML VIAL IVP SCH ×4 (00:38→17:41)
[2016-12-12 04:29] LABS: Basophils % 0.3 %; Eosinophils # 0.1 K/mcL (0.0-0.6); Eosinophils % 0.9 %; Hematocrit 29.1 % (37.5-50.1); Immature Granulocytes % 1.6 % (0-4); Lymphocytes # 1.2 K/mcL (0.6-4.6); Lymphocytes % 9.4 %; Mean Corpuscular HGB Conc 33.7 g/dL (31.6-35.5); Mean Corpuscular Hemoglobin 31.5 pg (28.0-33.3); Mean Corpuscular Volume 93.6 fL (83.0-100.0); Mean Platelet Volume 10.4 fL (9.4-12.4); Monocytes # 1.1 K/mcL (0.0-1.3); Monocytes % 8.2 %; Neutrophils # 10.2 K/mcL (1.6-8.9); Platelet Count 510 K/mcL (140-400); Red Blood Count 3.11 M/mcL (4.19-5.50); Red Cell Distribution Width 13.6 % (11.5-14.5); Segmented Neutrophils % 79.6 %
[2016-12-12 04:35] LABS: Hemoglobin 9.8 g/dL (12.9-16.9)
[2016-12-12 05:01] LABS: BUN/Creatinine Ratio 21 (6-26); Blood Urea Nitrogen 18 mg/dL (8-26); Calcium 8.9 mg/dL (8.6-10.8); Carbon Dioxide 24 mEq/L (19-29); Chloride 102 mEq/L (98-109); Glucose 135 mg/dL (70-99); Osmolality,Calculated 284 (280-300); Sodium 135 mEq/L (136-145); eGFR For African Americans > 60 (> 60); eGFR For Non-African Americans > 60 (> 60)
[2016-12-12] MEDS: *HR* Heparin 5,000 UNIT/ML VIAL SQ SCH ×2 (06:19→18:14)
[2016-12-12] MEDS: Pantoprazole 40 MG VIAL IVP SCH (07:43)
--- NOTE | 2016-12-12 10:22 | General Surgery Progress Note ---
Date of Encounter: 12/12/16 Time of Encounter: 09:15 - Assessment and Plan (1) Ileus Current Visit: Yes Status: Acute POD #4 s/p Diagnostic Laparoscopy to Exploratory laparotomy with lysis of adhesions 1 hour with Repair of small bowel enterotomy 2 and Appendectomy NG removed. Advancing to clear liquids. IV fluids- total fluid rate 100ml/hour (MIV + TPN) Pack wound daily with 1/4 inch plain gauze. 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 See above plan. (3) Cellulitis Current Visit: Yes Status: Acute Wound care daily with 1/4 inch plain gauze packing Continue IV antibiotics- zosyn Check AM labs Qualifiers: Site of cellulitis: trunk Site of cellulitis of trunk: abdominal wall Qualified Code(s): L03.311 - Cellulitis of abdominal wall (4) JYAE (acute kidney injury) Current Visit: Yes Status: Resolved Resolved, Cr 0.87 Avoid nephrotoxic medications. (5) HTN (hypertension) Current Visit: Yes Status: Chronic Improved at 135/78 Continue hydralazine scheduled and prn. Will continue to monitor and treat as necessary Qualifiers: Hypertension type: essential hypertension Qualified Code(s): I10 - Essential (primary) hypertension (6) DVT prophylaxis Current Visit: Yes Status: Acute EPCDs to bilateral lower extremities for DVT prophylaxis Heparin 5,000 units SQ twice daily for DVT prophylaxis Subjective Patient reports: no new complaints, feels better, still having pain (expected post-operative tenderness), pain is less, flatus, bowel movement, afebrile (max temp 99.5) Objective Vital Signs - Last 8 Hours Temp Pulse Resp BP Pulse Ox 12/12/16 06:58 94 L 12/12/16 06:39 99.1 F 95 17 156/74 94 L 12/12/16 04:59 97.6 F 88 18 137/75 92 L Intake and Output 12/11/16 12/12/16 12/12/16 23:59 07:59 15:59 Intake Total 145 / 145 467 / 467 0 / 0 Output Total 1600 / 1600 1000 / 1000 260 / 260 Balance -1455 / -1455 -533 / -533 -260 / -260 Intake: IV Fluids 145 / 145 467 / 467 0.9 % Sodium Chloride 1, 45 / 45 117 / 117 000 ML @ 100 mls/hr IVC . Q10H [facility] Rx#:[id number] Intralipid 20% 250 ML @ 250 / 250 21 mls/hr IVPB DAILY@1700 [facility] Rx#:[id number] Zosyn 3.375 GM In 100 / 100 100 / 100 Dextrose 5% (Minibag+) 100 ML 100 ML @ 25 mls/hr IVPB Q8HR [facility] Rx#: [id number] Oral 0 / 0 0 / 0 0 / 0 Output: Urine 1600 / 1600 1000 / 1000 250 / 250 Wound Drainage 0 / 0 0 / 0 10 / 10 Right Lower Abdomen 0 / 0 0 / 0 10 / 10 Other: Meal NPO NPO Percent of Meal Consumed 0% 0% Weight 97.6 kg Blood Glucose* 140 172 Patient Weight 12/12/16 23:59 Weight 97.6 kg - General physical appearance well developed, well nourished, no distress, moderate pain - Eyes normal ocular movement - ENT normal mucosa, atraumatic, normocephalic - Neck Neck exam: trachea midline - Respiratory normal respiratory effort, clear to auscultation - Cardiovascular Cardiovascular exam: Present: RRR - Abdomen Abdomen: Present: soft, tender (expected post-operative tenderness, improved from yesterday.), wound (LORENZA drain (10ml noted since midnight)). Absent: bowel sounds present - Incision Incision: Present: erythema (less erythema present around incision site.), open (packed with ) - Integumentary no rash - Neurologic CN 2-12 grossly intact - Psychiatric oriented to time, oriented to person, oriented to place, speech is normal, memory intact - Labs 12/13/16 04:59 12/12/16 04:10 Diabetes panel 12/12/16 Range/Units 04:10 Sodium 135 L (136-145) mEq/L Potassium 4.0 (3.5-4.5) mEq/L Chloride 102 (98-109) mEq/L Carbon Dioxide 24 (19-29) mEq/L BUN 18 (8-26) mg/dL Creatinine 0.87 (0.72-1.25) mg/dL Glucose 135 H (70-99) mg/dL Calcium 8.9 (8.6-10.8) mg/dL Calcium panel 12/12/16 Range/Units 04:10 Calcium 8.9 (8.6-10.8) mg/dL Pituitary panel 12/12/16 Range/Units 04:10 Sodium 135 L (136-145) mEq/L Potassium 4.0 (3.5-4.5) mEq/L Chloride 102 (98-109) mEq/L Carbon Dioxide 24 (19-29) mEq/L BUN 18 (8-26) mg/dL Creatinine 0.87 (0.72-1.25) mg/dL Glucose 135 H (70-99) mg/dL Calcium 8.9 (8.6-10.8) mg/dL Adrenal panel 12/12/16 Range/Units 04:10 Sodium 135 L (136-145) mEq/L Potassium 4.0 (3.5-4.5) mEq/L Chloride 102 (98-109) mEq/L Carbon Dioxide 24 (19-29) mEq/L BUN 18 (8-26) mg/dL Creatinine 0.87 (0.72-1.25) mg/dL Glucose 135 H (70-99) mg/dL Calcium 8.9 (8.6-10.8) mg/dL - VTE Documentation of Mechanical Device: Intermittent pneumatic compression device Consult Discharge Plan - Plan Referrals: NO,PCP [Primary Care Provider] -
[2016-12-12] MEDS: 0.9 % Sodium Chloride 1,000 ML IVC SCH (16:41)
[2016-12-12] MEDS ORDERED: Clinimix E 5%-15% SOLUTION 2,000 ML with MVI, adult with vitamin K 10 ML IV SCH (17:00)
[2016-12-12] MEDS: Ondansetron 4 MG/2 ML VIAL IVP PRN (19:27)
[2016-12-13] MEDS: Metoclopramide 10 MG/2 ML VIAL IVP SCH ×5 (00:14→23:52)
[2016-12-13] MEDS: Insulin LISPRO 300 UNITS/3 ML VIAL SQ SCH ×5 (00:14→23:57)
[2016-12-13] MEDS: 0.9 % Sodium Chloride 1,000 ML IVC SCH ×2 (00:18→16:40)
[2016-12-13 06:09] LABS: Basophils # 0.1 K/mcL (0.0-0.2); Basophils % 0.5 %; Eosinophils # 0.3 K/mcL (0.0-0.6); Eosinophils % 2.2 %; Hematocrit 27.2 % (37.5-50.1); Hemoglobin 9.4 g/dL (12.9-16.9); Immature Granulocytes % 3.2 % (0-4); Lymphocytes # 1.1 K/mcL (0.6-4.6); Lymphocytes % 8.5 %; Mean Corpuscular HGB Conc 34.6 g/dL (31.6-35.5); Mean Corpuscular Hemoglobin 32.1 pg (28.0-33.3); Mean Corpuscular Volume 92.8 fL (83.0-100.0); Mean Platelet Volume 10.8 fL (9.4-12.4); Monocytes # 1.2 K/mcL (0.0-1.3); Monocytes % 9.8 %; Neutrophils # 9.5 K/mcL (1.6-8.9); Platelet Count 496 K/mcL (140-400); Red Blood Count 2.93 M/mcL (4.19-5.50); Red Cell Distribution Width 13.7 % (11.5-14.5); Segmented Neutrophils % 75.8 %
[2016-12-13] MEDS: *HR* Heparin 5,000 UNIT/ML VIAL SQ SCH ×2 (07:12→18:14)
[2016-12-13] MEDS: Pantoprazole 40 MG VIAL IVP SCH (07:50)
[2016-12-13] MEDS ORDERED: Clinimix E 5%-15% SOLUTION 2,000 ML with MVI, adult with vitamin K 10 ML IV SCH (17:00)
[2016-12-13] MEDS ORDERED: Clinimix E 5%-15% SOLUTION 2,000 ML with MVI, adult with vitamin K 10 ML, Trace Eleme... IV SCH (17:00)
--- NOTE | 2016-12-13 17:28 | General Surgery Progress Note ---
Date of Encounter: 12/13/16 Time of Encounter: 11:50 - Assessment and Plan (1) Ileus Current Visit: Yes Status: Acute POD #5 s/p Diagnostic Laparoscopy to Exploratory laparotomy with lysis of adhesions 1 hour with Repair of small bowel enterotomy 2 and Appendectomy Tolerating clear liquids with protein supplementation. IV fluids- total fluid rate 100ml/hour (MIV + TPN). Spoke with classroom monitor; suggested continuation of TPN today. Pack wound daily with 1/4 inch plain gauze. 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 See above plan. (3) Cellulitis Current Visit: Yes Status: Acute Improved. Wound care daily with 1/4 inch plain gauze packing Qualifiers: Site of cellulitis: trunk Site of cellulitis of trunk: abdominal wall Qualified Code(s): L03.311 - Cellulitis of abdominal wall (4) HTN (hypertension) Current Visit: Yes Status: Chronic Stable Continue hydralazine scheduled and prn. Will continue to monitor and treat as necessary Qualifiers: Hypertension type: essential hypertension Qualified Code(s): I10 - Essential (primary) hypertension (5) DVT prophylaxis Current Visit: Yes Status: Acute EPCDs to bilateral lower extremities for DVT prophylaxis Heparin 5,000 units SQ twice daily for DVT prophylaxis Subjective Patient reports: no new complaints, still having pain, pain is less, tolerating liquids well, flatus, bowel movement, afebrile (max temp 99.2), other (fatigued) Objective Vital Signs - Last 8 Hours Temp Pulse Resp BP Pulse Ox 12/13/16 16:00 98.3 F 85 16 141/79 93 L 12/13/16 10:00 99.1 F 82 16 133/71 94 L Intake and Output 12/13/16 12/13/16 12/13/16 07:59 15:59 23:59 Intake Total 1716 / 1716 472 / 472 477 / 477 Output Total 500 / 500 740 / 740 400 / 400 Balance 1217 / 1217 -268 / -268 77 / 77 Intake: IV Fluids 1716 / 1716 472 / 472 417 / 417 Clinimix E 5%-15% 1211 / 1211 392 / 392 349 / 349 SOLUTION 2,000 ML @ 83.3 mls/hr IV .Q24H [facility] with M.v.i. Adult 10 ml Rx#: [id number] 0.9 % Sodium Chloride 1, 256 / 256 80 / 80 68 / 68 000 ML @ 100 mls/hr IVC . Q10H [facility] Rx#:[id number] Intralipid 20% 250 ML @ 250 / 250 21 mls/hr IVPB DAILY@1700 [facility] Rx#:[id number] Oral 0 / 0 60 / 60 Output: Urine 500 / 500 700 / 700 400 / 400 Wound Drainage 0 / 0 40 / 40 0 / 0 Right Lower Abdomen 0 / 0 40 / 40 0 / 0 Other: Meal Lunch Stool Size Small Stool Consistency loose liquid Stool Color Brown # Bowel Movements 1 Weight 97.4 kg Blood Glucose* 152 138 140 Patient Weight 12/13/16 23:59 Weight 97.4 kg - General physical appearance well developed, well nourished, no distress - Eyes normal ocular movement - ENT normal mucosa, atraumatic, normocephalic - Neck Neck exam: trachea midline - Respiratory normal respiratory effort, clear to auscultation - Cardiovascular Cardiovascular exam: Present: tachycardia - Abdomen Abdomen: Present: bowel sounds present, soft, tender (expected post-operative tenderness) - Incision Incision: Present: clean and dry, erythema (minimal), open - Integumentary no rash - Neurologic CN 2-12 grossly intact - Musculoskeletal normal posture - Psychiatric oriented to time, oriented to person, oriented to place, speech is normal, memory intact - Labs 12/16/16 03:32 12/16/16 03:32 - VTE Documentation of Mechanical Device: Intermittent pneumatic compression device Consult Discharge Plan - Plan Referrals: NO,PCP [Primary Care Provider] -
[2016-12-13] MEDS: *HR* Morphine 30 MG/ 30 ML PCA IVC PRN (21:47)
[2016-12-14 04:55] LABS: BUN/Creatinine Ratio 21 (6-26); Blood Urea Nitrogen 17 mg/dL (8-26); Calcium 8.4 mg/dL (8.6-10.8); Carbon Dioxide 21 mEq/L (19-29); Chloride 102 mEq/L (98-109); Glucose 153 mg/dL (70-99); Magnesium 1.7 mg/dL (1.6-2.6); Osmolality,Calculated 277 (280-300); Phosphorous 3.7 mg/dL (2.3-4.7); Potassium 3.8 mEq/L (3.5-4.5); Sodium 131 mEq/L (136-145); eGFR For African Americans > 60 (> 60); eGFR For Non-African Americans > 60 (> 60)
[2016-12-14] MEDS: Metoclopramide 10 MG/2 ML VIAL IVP SCH ×3 (05:54→16:40)
[2016-12-14] MEDS: Insulin LISPRO 300 UNITS/3 ML VIAL SQ SCH ×3 (06:00→17:02)
[2016-12-14] MEDS: *HR* Heparin 5,000 UNIT/ML VIAL SQ SCH ×2 (08:21→17:43)
[2016-12-14] MEDS: Pantoprazole 40 MG VIAL IVP SCH (08:22)
[2016-12-14] MEDS: *HR* Morphine 30 MG/ 30 ML PCA IVC PRN (10:54)
--- NOTE | 2016-12-14 14:55 | General Surgery Progress Note ---
Date of Encounter: 12/14/16 Time of Encounter: 14:30 - Assessment and Plan (1) Acute appendicitis Current Visit: No Status: Inactive POD #6 from exploratory laparotomy, appendectomy with Dr. Beaulieu Acute perforated appendicitis Continue clear liquids Continue TPN- D/C MIV and PLAYGROUND WORKER Reglan increased to 10mg every 6 hours Supportive care/pain control- D/C PLAYGROUND WORKER, Percocet added Ambulate in hallways Qualifiers: Acute appendicitis type: with generalized peritonitis Qualified Code(s): K35.2 - Acute appendicitis with generalized peritonitis (2) Ileus Current Visit: Yes Status: Acute Continue clear liquid diet Increase reglan to 10mg every 6 hours Acute abdominal series in the am 12/15 Continue TPN (3) HTN (hypertension) Current Visit: Yes Status: Chronic Normotensive Hydralazine IV every 6 hours Will continue to monitor and treat as necessary Qualifiers: Hypertension type: essential hypertension Qualified Code(s): I10 - Essential (primary) hypertension (4) DVT prophylaxis Current Visit: Yes Status: Acute EPCDs to bilateral lower extremities for DVT prophylaxis Ambulate in hallways with assistance TID Continue heparin 5,000 units SQ twice daily for DVT prophylaxis Subjective Patient reports: still having pain, pain is less, voiding w/o difficulty, flatus , bowel movement (last 2/8), afebrile, other (feels bloated) Objective Vital Signs - Last 8 Hours Temp Pulse Resp BP Pulse Ox 12/14/16 11:14 98.2 F 109 20 135/88 98 12/14/16 08:02 98.6 F 79 18 133/76 93 L Intake and Output 12/13/16 12/14/16 12/14/16 23:59 07:59 15:59 Intake Total 852 / 852 250 / 250 0 / 0 Output Total 835 / 835 225 / 225 1355 / 1355 Balance 25 / 25 -1355 / -1355 Intake: IV Fluids 417 / 417 250 / 250 Clinimix E 5%-15% 349 / 349 SOLUTION 2,000 ML @ 83.3 mls/hr IV .Q24H [facility] with M.v.i. Adult 10 ml Rx#: [id number] 0.9 % Sodium Chloride 1, 68 / 68 000 ML @ 100 mls/hr IVC . Q10H [facility] Rx#:[id number] Intralipid 20% 250 ML @ 250 / 250 21 mls/hr IVPB DAILY@1700 [facility] Rx#:[id number] Oral 435 / 435 0 / 0 Output: Urine 825 / 825 225 / 225 1350 / 1350 Wound Drainage 0 / 0 5 / 5 Right Lower Abdomen 0 / 0 5 / 5 Other: Meal water pitcher Lunch Percent of Meal Consumed 0% # Voids 1 Blood Glucose* 146 137 127 - General physical appearance no distress, no pain - Eyes normal ocular movement - ENT normal mucosa, atraumatic, normocephalic - Neck Neck exam: trachea midline - Respiratory normal respiratory effort, clear to auscultation - Cardiovascular Cardiovascular exam: Present: RRR - Abdomen Abdomen: Present: bowel sounds present (hypoactive), soft, distended, wound ( Midline with open area draining serousang. drainage) - Incision Incision: Present: open (Midline with small open area draining serousang. drainage) - Neurologic CN 2-12 grossly intact - Psychiatric oriented to time, oriented to person, oriented to place, speech is normal, memory intact - Labs 12/13/16 04:59 12/14/16 04:13 Diabetes panel 12/14/16 Range/Units 04:13 Sodium 131 L (136-145) mEq/L Potassium 3.8 (3.5-4.5) mEq/L Chloride 102 (98-109) mEq/L Carbon Dioxide 21 (19-29) mEq/L BUN 17 (8-26) mg/dL Creatinine 0.82 (0.72-1.25) mg/dL Glucose 153 H (70-99) mg/dL Calcium 8.4 L (8.6-10.8) mg/dL Calcium panel 12/14/16 Range/Units 04:13 Calcium 8.4 L (8.6-10.8) mg/dL Phosphorus 3.7 (2.3-4.7) mg/dL Pituitary panel 12/14/16 Range/Units 04:13 Sodium 131 L (136-145) mEq/L Potassium 3.8 (3.5-4.5) mEq/L Chloride 102 (98-109) mEq/L Carbon Dioxide 21 (19-29) mEq/L BUN 17 (8-26) mg/dL Creatinine 0.82 (0.72-1.25) mg/dL Glucose 153 H (70-99) mg/dL Calcium 8.4 L (8.6-10.8) mg/dL Adrenal panel 12/14/16 Range/Units 04:13 Sodium 131 L (136-145) mEq/L Potassium 3.8 (3.5-4.5) mEq/L Chloride 102 (98-109) mEq/L Carbon Dioxide 21 (19-29) mEq/L BUN 17 (8-26) mg/dL Creatinine 0.82 (0.72-1.25) mg/dL Glucose 153 H (70-99) mg/dL Calcium 8.4 L (8.6-10.8) mg/dL - VTE Documentation of Mechanical Device: Intermittent pneumatic compression device Consult Discharge Plan - Plan Referrals: NO,PCP [Primary Care Provider] - - Attending Attestation I examined this patient and my medical decision-making was reviewed with the SLURRY PLANT OPERATOR/PA/Advanced Practice Nurse/Resident Physician. I agree with the documented findings, disposition and treatment plan as described except to the extent set forth below.
[2016-12-14] MEDS ORDERED: Clinimix E 5%-15% SOLUTION 2,000 ML with MVI, adult with vitamin K 10 ML IV SCH (17:00)
[2016-12-14] MEDS: *HR* OxyCODONE/APAP 5/325 TABLET PO PRN ×2 (17:45→21:59)
[2016-12-15] MEDS: Insulin LISPRO 300 UNITS/3 ML VIAL SQ SCH ×4 (00:07→17:34)
[2016-12-15] MEDS: Metoclopramide 10 MG/2 ML VIAL IVP SCH ×4 (00:11→17:20)
[2016-12-15] MEDS: *HR* OxyCODONE/APAP 5/325 TABLET PO PRN ×4 (01:46→14:20)
[2016-12-15 04:41] LABS: Hemoglobin 9.7 g/dL (12.9-16.9); Mean Corpuscular HGB Conc 33.4 g/dL (31.6-35.5); Mean Corpuscular Hemoglobin 31.4 pg (28.0-33.3); Mean Corpuscular Volume 93.9 fL (83.0-100.0); Platelet Count 500 K/mcL (140-400); Red Blood Count 3.09 M/mcL (4.19-5.50); Red Cell Distribution Width 13.7 % (11.5-14.5)
[2016-12-15 04:57] LABS: BUN/Creatinine Ratio 20 (6-26); Blood Urea Nitrogen 16 mg/dL (8-26); Calcium 8.6 mg/dL (8.6-10.8); Carbon Dioxide 24 mEq/L (19-29); Chloride 99 mEq/L (98-109); Glucose 148 mg/dL (70-99); Osmolality,Calculated 276 (280-300); Potassium 3.9 mEq/L (3.5-4.5); Sodium 131 mEq/L (136-145); eGFR For African Americans > 60 (> 60); eGFR For Non-African Americans > 60 (> 60)
[2016-12-15 05:05] LABS: Eosinophils # 0.8 K/mcL (0.0-0.6); Lymphocytes # 0.8 K/mcL (0.6-4.6); Monocytes # 1.1 K/mcL (0.0-1.3); Neutrophils # 10.7 K/mcL (1.6-8.9); Platelet Estimate Increased (Normal)
[2016-12-15] MEDS: *HR* Heparin 5,000 UNIT/ML VIAL SQ SCH ×2 (05:56→19:39)
[2016-12-15] MEDS: Pantoprazole 40 MG VIAL IVP SCH (10:29)
[2016-12-15] MEDS ORDERED: *HR* Alteplase (Cathflo) 2 MG VIAL IVP ONE (12:27)
[2016-12-15] MEDS ORDERED: D10% in Water 500 ML IV PRN (12:42)
--- NOTE | 2016-12-15 15:04 | General Surgery Progress Note ---
Date of Encounter: 12/15/16 Time of Encounter: 15:00 - Assessment and Plan (1) Acute appendicitis Current Visit: No Status: Inactive POD #7 from exploratory laparotomy, appendectomy with Dr. Beaulieu Acute perforated appendicitis Continue clear liquids Decrease TPN to 50ml/hour today Percocet for pain control- Percocet increase to 10/325mg Continue Reglan to 10mg every 6 hours Supportive care/pain control Ambulate in hallways Daily wound packing Qualifiers: Acute appendicitis type: with generalized peritonitis Qualified Code(s): K35.2 - Acute appendicitis with generalized peritonitis (2) Ileus Current Visit: Yes Status: Acute Continue clear liquid diet Continue reglan to 10mg every 6 hours AAS- shows continued SB dilation Decrease TPN to 50ml/hour 1/2 bottle of magnesium citrate today (3) HTN (hypertension) Current Visit: Yes Status: Chronic Normotensive Hydralazine IV every 6 hours Will continue to monitor and treat as necessary Qualifiers: Hypertension type: essential hypertension Qualified Code(s): I10 - Essential (primary) hypertension (4) DVT prophylaxis Current Visit: Yes Status: Acute EPCDs to bilateral lower extremities for DVT prophylaxis Ambulate in hallways with assistance TID Continue heparin 5,000 units SQ twice daily for DVT prophylaxis Subjective Patient reports: still having pain (LUQ- cramping pain), tolerating liquids well , voiding w/o difficulty, flatus, no bowel movement, afebrile Objective Vital Signs - Last 8 Hours Temp Pulse Resp BP Pulse Ox 12/15/16 12:00 98.4 F 81 16 96 12/15/16 08:00 98.2 F 89 14 139/75 Intake and Output 12/14/16 12/15/16 12/15/16 23:59 07:59 15:59 Intake Total 1250 / 1250 420 / 420 Output Total 950 / 950 500 / 500 665 / 665 Balance -950 / -950 750 / 750 -245 / -245 Intake: IV Fluids 1250 / 1250 Clinimix E 5%-15% 1000 / 1000 SOLUTION 2,000 ML @ 83.3 mls/hr IV .Q24H [facility] with M.v.i. Adult 10 ml Rx#: [id number] Intralipid 20% 250 ML @ 250 / 250 21 mls/hr IVPB DAILY@1700 [facility] Rx#:[id number] Oral 420 / 420 Output: Urine 950 / 950 500 / 500 650 / 650 Wound Drainage Right Lower Abdomen Other: Meal Lunch Percent of Meal Consumed 5% Weight 97.4 kg Blood Glucose* 136 138 Patient Weight 12/15/16 23:59 Weight 97.4 kg - General physical appearance well developed, well nourished, moderate distress, moderate pain - Eyes normal ocular movement - ENT normal mucosa, atraumatic, normocephalic - Neck Neck exam: trachea midline - Respiratory normal respiratory effort, clear to auscultation, other (diminished bibasilar bases) - Cardiovascular Cardiovascular exam: Present: RRR - Abdomen Abdomen: Present: bowel sounds present, soft, distended, tender (moderate, expected post-operative tenderness), wound (midline with open areas draining small amount of purulent drainage) - Incision Incision: Present: intact, open (3 open areas to midline draining purulent drainage, mild erythema noted today, tender to exam) - Integumentary no rash, no growths - Neurologic CN 2-12 grossly intact - Psychiatric oriented to time, oriented to person, oriented to place, speech is normal, memory intact - Labs 12/15/16 04:17 12/15/16 04:17 Diabetes panel 12/15/16 Range/Units 04:17 Sodium 131 L (136-145) mEq/L Potassium 3.9 (3.5-4.5) mEq/L Chloride 99 (98-109) mEq/L Carbon Dioxide 24 (19-29) mEq/L BUN 16 (8-26) mg/dL Creatinine 0.81 (0.72-1.25) mg/dL Glucose 148 H (70-99) mg/dL Calcium 8.6 (8.6-10.8) mg/dL Calcium panel 12/15/16 Range/Units 04:17 Calcium 8.6 (8.6-10.8) mg/dL Pituitary panel 12/15/16 Range/Units 04:17 Sodium 131 L (136-145) mEq/L Potassium 3.9 (3.5-4.5) mEq/L Chloride 99 (98-109) mEq/L Carbon Dioxide 24 (19-29) mEq/L BUN 16 (8-26) mg/dL Creatinine 0.81 (0.72-1.25) mg/dL Glucose 148 H (70-99) mg/dL Calcium 8.6 (8.6-10.8) mg/dL Adrenal panel 12/15/16 Range/Units 04:17 Sodium 131 L (136-145) mEq/L Potassium 3.9 (3.5-4.5) mEq/L Chloride 99 (98-109) mEq/L Carbon Dioxide 24 (19-29) mEq/L BUN 16 (8-26) mg/dL Creatinine 0.81 (0.72-1.25) mg/dL Glucose 148 H (70-99) mg/dL Calcium 8.6 (8.6-10.8) mg/dL - VTE Documentation of Mechanical Device: Intermittent pneumatic compression device Consult Discharge Plan - Plan Referrals: NO,PCP [Primary Care Provider] - - Attending Attestation I examined this patient and my medical decision-making was reviewed with the DISPLAYER MERCHANDISE/PA/Advanced Practice Nurse/Resident Physician. I agree with the documented findings, disposition and treatment plan as described except to the extent set forth below.
[2016-12-15] MEDS ORDERED: Clinimix E 5%-15% SOLUTION 2,000 ML with MVI, adult with vitamin K 10 ML IV SCH (17:00)
[2016-12-15] MEDS: *HR* OxyCODONE/APAP 10/325 TABLET PO PRN ×2 (17:25→23:41)
[2016-12-16] MEDS: Insulin LISPRO 300 UNITS/3 ML VIAL SQ SCH ×4 (00:31→18:11)
[2016-12-16] MEDS: Ondansetron 4 MG/2 ML VIAL IVP PRN (00:33)
[2016-12-16] MEDS: Metoclopramide 10 MG/2 ML VIAL IVP SCH ×4 (00:33→18:15)
[2016-12-16 03:49] LABS: Basophils # 0.1 K/mcL (0.0-0.2); Basophils % 0.4 %; Eosinophils # 0.5 K/mcL (0.0-0.6); Hematocrit 29.7 % (37.5-50.1); Immature Granulocytes % 4.3 % (0-4); Immature Platelets 3.1 % (1.1-6.1); Lymphocytes # 1.3 K/mcL (0.6-4.6); Lymphocytes % 10.9 %; Mean Corpuscular HGB Conc 33.7 g/dL (31.6-35.5); Monocytes # 0.8 K/mcL (0.0-1.3); Monocytes % 7.1 %; Neutrophils # 8.5 K/mcL (1.6-8.9); Platelet Count 569 K/mcL (140-400); Red Blood Count 3.23 M/mcL (4.19-5.50); Red Cell Distribution Width 13.5 % (11.5-14.5); Segmented Neutrophils % 73.3 %
[2016-12-16 04:00] LABS: BUN/Creatinine Ratio 18 (6-26); Blood Urea Nitrogen 15 mg/dL (8-26); Calcium 8.8 mg/dL (8.6-10.8); Carbon Dioxide 24 mEq/L (19-29); Chloride 100 mEq/L (98-109); Glucose 118 mg/dL (70-99); Osmolality,Calculated 278 (280-300); Potassium 3.9 mEq/L (3.5-4.5); Sodium 133 mEq/L (136-145); eGFR For African Americans > 60 (> 60); eGFR For Non-African Americans > 60 (> 60)
[2016-12-16] MEDS: *HR* OxyCODONE/APAP 10/325 TABLET PO PRN ×3 (05:46→18:15)
[2016-12-16] MEDS: *HR* Heparin 5,000 UNIT/ML VIAL SQ SCH ×2 (05:46→18:15)
[2016-12-16] MEDS: Simethicone 80 MG TAB.CHEW PO PRN ×2 (05:52→18:14)
[2016-12-16] MEDS: Pantoprazole 40 MG VIAL IVP SCH (09:02)
--- NOTE | 2016-12-16 15:54 | General Surgery Progress Note ---
Date of Encounter: 12/16/16 Time of Encounter: 08:50 - Assessment and Plan (1) Ileus Current Visit: Yes Status: Acute POD #8 s/p from exploratory laparotomy, appendectomy with Dr. Beaulieu Acute perforated appendicitis Continue clear liquids Discontinued TPN today Percocet for pain control Continue Reglan to 10mg every 6 hours AAS- shows continued SB dilation 1/2 bottle of magnesium citrate yesterday Supportive care/pain control Ambulate in hallways Daily wound packing (2) Acute perforated appendicitis Current Visit: Yes Status: Resolved See plan above. (3) JAYE (acute kidney injury) Current Visit: Yes Status: Resolved Resolved, Cr 0.87 Avoid nephrotoxic medications. (4) HTN (hypertension) Current Visit: Yes Status: Chronic Improved at 135/78 Continue hydralazine scheduled and prn. Will continue to monitor and treat as necessary Qualifiers: Hypertension type: essential hypertension Qualified Code(s): I10 - Essential (primary) hypertension (5) DVT prophylaxis Current Visit: Yes Status: Acute EPCDs to bilateral lower extremities for DVT prophylaxis Heparin 5,000 units SQ twice daily for DVT prophylaxis Ambulate with assistance TID. Subjective Patient reports: no new complaints, feels better, still having pain, pain is less, tolerating liquids well (small amount, states full after 5 bites.), flatus , afebrile, other (States he feels more clear headed with the PO pain medication.) Objective Vital Signs - Last 8 Hours Temp Pulse Resp BP Pulse Ox 12/16/16 10:46 97.9 F 91 16 133/76 94 L Intake and Output 12/15/16 12/16/16 12/16/16 23:59 07:59 15:59 Intake Total 500 / 500 500 / 500 Output Total 0 / 0 1053 / 1053 200 / 200 Balance 500 / 500 -553 / -553 -200 / -200 Intake: IV Fluids 250 / 250 Intralipid 20% 250 ML @ 250 / 250 21 mls/hr IVPB DAILY@1700 KURT[facility] Rx#:[id number] Oral 500 / 500 250 / 250 Output: Urine 0 / 0 1025 / 1025 200 / 200 Wound Drainage 0 / 0 28 / 28 0 / 0 Right Lower Abdomen 0 / 0 28 / 28 0 / 0 Other: Meal water/ dinner # Bowel Movements 0 Blood Glucose* 129 125 133 - General physical appearance well developed, well nourished, no distress, moderate pain - Eyes normal ocular movement - ENT normal mucosa, atraumatic, normocephalic - Neck Neck exam: trachea midline - Respiratory normal respiratory effort, clear to auscultation - Cardiovascular Cardiovascular exam: Present: tachycardia - Abdomen Abdomen: Present: bowel sounds present, soft, tender, wound (LORENZA drain to RLQ with minimal serosangnious fluid present in bulb.) - Integumentary no rash - Neurologic CN 2-12 grossly intact - Psychiatric oriented to time, oriented to person, oriented to place, speech is normal, memory intact - Labs 12/16/16 03:32 12/16/16 03:32 Diabetes panel 12/16/16 Range/Units 03:32 Sodium 133 L (136-145) mEq/L Potassium 3.9 (3.5-4.5) mEq/L Chloride 100 (98-109) mEq/L Carbon Dioxide 24 (19-29) mEq/L BUN 15 (8-26) mg/dL Creatinine 0.83 (0.72-1.25) mg/dL Glucose 118 H (70-99) mg/dL Calcium 8.8 (8.6-10.8) mg/dL Calcium panel 12/16/16 Range/Units 03:32 Calcium 8.8 (8.6-10.8) mg/dL Pituitary panel 12/16/16 Range/Units 03:32 Sodium 133 L (136-145) mEq/L Potassium 3.9 (3.5-4.5) mEq/L Chloride 100 (98-109) mEq/L Carbon Dioxide 24 (19-29) mEq/L BUN 15 (8-26) mg/dL Creatinine 0.83 (0.72-1.25) mg/dL Glucose 118 H (70-99) mg/dL Calcium 8.8 (8.6-10.8) mg/dL Adrenal panel 12/16/16 Range/Units 03:32 Sodium 133 L (136-145) mEq/L Potassium 3.9 (3.5-4.5) mEq/L Chloride 100 (98-109) mEq/L Carbon Dioxide 24 (19-29) mEq/L BUN 15 (8-26) mg/dL Creatinine 0.83 (0.72-1.25) mg/dL Glucose 118 H (70-99) mg/dL Calcium 8.8 (8.6-10.8) mg/dL - VTE Documentation of Mechanical Device: Intermittent pneumatic compression device Consult Discharge Plan - Plan Referrals: NO,PCP [Primary Care Provider] -
[2016-12-16] MEDS ORDERED: Clinimix E 5%-15% SOLUTION 2,000 ML with MVI, adult with vitamin K 10 ML IV SCH (17:00)
[2016-12-17] MEDS: Insulin LISPRO 300 UNITS/3 ML VIAL SQ SCH ×4 (00:06→18:22)
[2016-12-17] MEDS: *HR* OxyCODONE/APAP 10/325 TABLET PO PRN ×4 (00:08→18:26)
[2016-12-17] MEDS: Metoclopramide 10 MG/2 ML VIAL IVP SCH ×4 (00:08→18:23)
[2016-12-17 03:32] LABS: BUN/Creatinine Ratio 16 (6-26); Blood Urea Nitrogen 14 mg/dL (8-26); Calcium 8.9 mg/dL (8.6-10.8); Carbon Dioxide 24 mEq/L (19-29); Chloride 99 mEq/L (98-109); Glucose 100 mg/dL (70-99); Osmolality,Calculated 275 (280-300); Potassium 4.2 mEq/L (3.5-4.5); Sodium 132 mEq/L (136-145); eGFR For African Americans > 60 (> 60); eGFR For Non-African Americans > 60 (> 60)
[2016-12-17] MEDS: *HR* Heparin 5,000 UNIT/ML VIAL SQ SCH ×2 (06:09→18:23)
[2016-12-17] MEDS: Pantoprazole 40 MG VIAL IVP SCH (08:04)
--- NOTE | 2016-12-17 14:52 | Electrocardiograph Report ---
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
[2016-12-17] MEDS: *HR* Morphine 2 MG/ML SYRINGE IVP PRN ×3 (16:02→23:05)
--- NOTE | 2016-12-17 16:11 | General Surgery Progress Note ---
Date of Encounter: 12/17/16 Time of Encounter: 08:05 - Assessment and Plan (1) Ileus Current Visit: Yes Status: Acute POD #9 s/p from exploratory laparotomy, appendectomy with Dr. Beaulieu Acute perforated appendicitis Continue clear liquids Percocet for pain control-adding Morphine Q3H prn Continue Reglan to 10mg every 6 hours AAS on 12/15/16- showsed citrate yesterday Supportive care/pain control Ambulate in hallways Daily wound packing (2) Acute perforated appendicitis Current Visit: Yes Status: Resolved See above plan. (3) Chest pain Current Visit: Yes Status: Acute Secondary to pleural effusion as confirmed by CT. EKG unchanged from previous. Pain control- percocet, adding morphine prn. Contact IR in the AM to discuss possibly draining effusion. Qualifiers: Chest pain type: chest pain on breathing Qualified Code(s): R07.1 - Chest pain on breathing (4) Pleural effusion Current Visit: Yes Status: Acute See above plan. Contact IR Sunday morning for possible drainage of effusion. (5) HTN (hypertension) Current Visit: Yes Status: Chronic Continue hydralazine scheduled and prn. Will continue to monitor and treat as necessary Qualifiers: Hypertension type: essential hypertension Qualified Code(s): I10 - Essential (primary) hypertension (6) JAYE (acute kidney injury) Current Visit: Yes Status: Resolved Resolved, Cr 0.86 Avoid nephrotoxic medications. (7) DVT prophylaxis Current Visit: Yes Status: Acute EPCDs to bilateral lower extremities for DVT prophylaxis Heparin 5,000 units SQ twice daily for DVT prophylaxis Ambulate with assistance TID. Subjective Narrative: Patient complaining of severe left sided chest pain with dyspnea this AM. Abdominal pain decreased. Back muscles spasming. Afebrile. Objective Intake and Output 12/17/16 12/17/16 12/17/16 07:59 15:59 23:59 Intake Total 500 / 500 0 / 0 Output Total 150 / 150 110 / 110 Balance 350 / 350 -110 / -110 Intake: Oral 500 / 500 0 / 0 Output: Urine 150 / 150 100 / 100 Wound Drainage 0 / 0 10 / 10 Right Lower Abdomen 0 / 0 10 / 10 Other: Meal pt refused tray Stool Size Moderate Small Stool Consistency soft loose Stool Characteristics Normal for Patient Stool Color Brown Brown # Voids 1 # Bowel Movements 1 1 Weight 93.15 kg Blood Glucose* 96 Patient Weight 12/17/16 23:59 Weight 93.15 kg - General physical appearance well developed, well nourished, moderate distress, moderate pain - Eyes normal ocular movement - ENT normal mucosa, atraumatic, normocephalic - Neck Neck exam: trachea midline - Respiratory other (decreased inspiration secondary to pain) absent breath sounds: left - Cardiovascular Cardiovascular exam: Present: RRR - Abdomen Abdomen: Present: bowel sounds present, soft, distended, tender (less tender than yesterday.), wound (LORENZA drain to RLQ with minimal serosangnious fluid present in bulb.) - Integumentary no rash - Neurologic CN 2-12 grossly intact - Musculoskeletal normal posture - Psychiatric oriented to time, oriented to person, oriented to place, speech is normal, memory intact - Labs 12/16/16 03:32 12/17/16 03:10 Diabetes panel 12/17/16 Range/Units 03:10 Sodium 132 L (136-145) mEq/L Potassium 4.2 (3.5-4.5) mEq/L Chloride 99 (98-109) mEq/L Carbon Dioxide 24 (19-29) mEq/L BUN 14 (8-26) mg/dL Creatinine 0.86 (0.72-1.25) mg/dL Glucose 100 H (70-99) mg/dL Calcium 8.9 (8.6-10.8) mg/dL Calcium panel 12/17/16 Range/Units 03:10 Calcium 8.9 (8.6-10.8) mg/dL Pituitary panel 12/17/16 Range/Units 03:10 Sodium 132 L (136-145) mEq/L Potassium 4.2 (3.5-4.5) mEq/L Chloride 99 (98-109) mEq/L Carbon Dioxide 24 (19-29) mEq/L BUN 14 (8-26) mg/dL Creatinine 0.86 (0.72-1.25) mg/dL Glucose 100 H (70-99) mg/dL Calcium 8.9 (8.6-10.8) mg/dL Adrenal panel 12/17/16 Range/Units 03:10 Sodium 132 L (136-145) mEq/L Potassium 4.2 (3.5-4.5) mEq/L Chloride 99 (98-109) mEq/L Carbon Dioxide 24 (19-29) mEq/L BUN 14 (8-26) mg/dL Creatinine 0.86 (0.72-1.25) mg/dL Glucose 100 H (70-99) mg/dL Calcium 8.9 (8.6-10.8) mg/dL - VTE Documentation of Mechanical Device: Intermittent pneumatic compression device Consult Discharge Plan - Plan Referrals: NO,PCP [Primary Care Provider] -
[2016-12-17] MEDS ORDERED: Clinimix E 5%-15% SOLUTION 2,000 ML with MVI, adult with vitamin K 10 ML IV SCH (17:00)
--- NOTE | 2016-12-17 18:20 | Venous Imaging Report ---
LE Venous Duplex Patient Name:Jonathan Kirk Order Number:[id number] Procedure Date:12/17/2016 Date:2Age:66 yrs Gender:Male Location:[facility] Room #: 3A41 Breastfeeding Peer Counselor:Omayra Pabon Referring MD:Glo Beaulieu DO technical research scientist:None Reading MD:Favio Marroquin MD , FACS Primary Indications:SOB r/o PE Secondary Indications: Impressions: Bilateral lower extremity: normal superficial and deep exam. Findings Prior Study: No prior study available for comparison. Lower Extremity Venous Duplex Side Vein Compress Spontaneous Flow Augment Diameter (cm) Depth (cm) Right Distal Iliac Normal Yes Phasic Yes Right Common Femoral Normal Yes Phasic Yes Right Superficial Femoral Normal Yes Phasic Yes Right Popliteal Normal Yes Phasic Yes Right Posterior Tibial Normal Yes Phasic Yes Right Peroneal Normal Yes Phasic Yes Right Saphenofemoral Junction Normal Yes Phasic Yes Right Great Saphenous Normal Yes Phasic Yes Right Lesser Saphenous Normal Yes Phasic Yes Left Distal Iliac Normal Yes Phasic Yes Left Common Femoral Normal Yes Phasic Yes Left Superficial Femoral Normal Yes Phasic Yes Left Popliteal Normal Yes Phasic Yes Left Posterior Tibial Normal Yes Phasic Yes Left Peroneal Normal Yes Phasic Yes Left Saphenofemoral [place] Normal Yes Phasic Yes Left Great Saphenous Normal Yes Phasic Yes Left Lesser Saphenous Normal Yes Phasic Yes Updated by Favio Marroquin MD, FACS on 12/17/2016 6:15:24 PM Favio Marroquin MD electronically signed on 12/17/2016 6:16:29 PM with status of Final
[2016-12-17] MEDS: *HR* LORazepam 2 MG/ML VIAL IVP PRN (22:22)
[2016-12-17] MEDS: Ondansetron 4 MG/2 ML VIAL IVP PRN (23:12)
[2016-12-18] MEDS: Insulin LISPRO 300 UNITS/3 ML VIAL SQ SCH ×4 (00:18→17:14)
[2016-12-18] MEDS: *HR* OxyCODONE/APAP 10/325 TABLET PO PRN ×4 (00:24→20:00)
[2016-12-18] MEDS: Metoclopramide 10 MG/2 ML VIAL IVP SCH ×4 (00:25→18:04)
[2016-12-18] MEDS: *HR* Morphine 2 MG/ML SYRINGE IVP PRN ×4 (02:20→15:50)
[2016-12-18 04:04] LABS: Basophils # 0.1 K/mcL (0.0-0.2); Basophils % 0.3 %; Eosinophils # 0.1 K/mcL (0.0-0.6); Eosinophils % 0.7 %; Hematocrit 30.2 % (37.5-50.1); Hemoglobin 10.2 g/dL (12.9-16.9); Immature Granulocytes % 2.1 % (0-4); Immature Platelets 3.2 % (1.1-6.1); Lymphocytes # 1.1 K/mcL (0.6-4.6); Mean Corpuscular HGB Conc 33.8 g/dL (31.6-35.5); Mean Corpuscular Hemoglobin 31.4 pg (28.0-33.3); Mean Corpuscular Volume 92.9 fL (83.0-100.0); Mean Platelet Volume 9.7 fL (9.4-12.4); Monocytes # 1.6 K/mcL (0.0-1.3); Monocytes % 9.6 %; Platelet Count 549 K/mcL (140-400); Red Blood Count 3.25 M/mcL (4.19-5.50); Red Cell Distribution Width 13.6 % (11.5-14.5); Segmented Neutrophils % 80.3 %
[2016-12-18 04:05] LABS: INR 1.3; Prothrombin Time 13.7 Seconds (9.4-12.1)
[2016-12-18 04:15] LABS: BUN/Creatinine Ratio 16 (6-26); Blood Urea Nitrogen 15 mg/dL (8-26); Calcium 9.1 mg/dL (8.6-10.8); Carbon Dioxide 21 mEq/L (19-29); Chloride 97 mEq/L (98-109); Glucose 109 mg/dL (70-99); Osmolality,Calculated 271 (280-300); Potassium 4.4 mEq/L (3.5-4.5); Sodium 130 mEq/L (136-145); eGFR For African Americans > 60 (> 60); eGFR For Non-African Americans > 60 (> 60)
[2016-12-18] MEDS: *HR* LORazepam 2 MG/ML VIAL IVP PRN ×3 (05:14→18:04)
[2016-12-18] MEDS: *HR* Heparin 5,000 UNIT/ML VIAL SQ SCH ×2 (06:38→18:04)
--- NOTE | 2016-12-18 09:12 | IR Procedure Note ---
Date of procedure: 12/18/16 Consent Obtained: Verbal consent, Written consent Timeout: Correct patient and procedure verified, Correct site verified, Time out performed, Skin prep completed Local anesthetic: Lidocaine 1% Indications: Left pleural effusion Procedure Performed: Left thoracentesis Site/Technique: Left thoracentesis Results/Findings: large left pleural effusion Estimated blood loss (cc): 1 Complications: None; Tolerated procedure well Post Procedure Treatment Plan: Post procedure CXR
[2016-12-18] MEDS: Pantoprazole 40 MG VIAL IVP SCH (09:48)
--- NOTE | 2016-12-18 10:16 | General Surgery Progress Note ---
Date of Encounter: 12/18/16 Time of Encounter: 07:45 - Assessment and Plan (1) Ileus Current Visit: Yes Status: Acute POD#10 s/p exploratory laparotomy, appendectomy with Dr. Beaulieu. No bowel movement for 3 days, distended abdomen on exam. Advance to full liquid diet. Continue Percocet Q6H and Morphine 2mg IV Q3H as needed for pain control Reglan 10mg IV Q6H Continue daily wound packing and dressing changes. Patient is encouraged to ambulate. (2) Acute perforated appendicitis Current Visit: Yes Status: Resolved Continue plan as above. (3) Chest pain Current Visit: Yes Status: Acute Secondary to pleural effusion as confirmed by CT. CXR from 12/18/16 with persistent left pleural effusion with atelectasis or infiltrate in the left lung base. No pneumothorax. Pt is s/p left thoracentesis on 12/18/16 per IR. Fluid sent for culture. Continue with Percocet and Morphine for pain control. Qualifiers: Chest pain type: chest pain on breathing Qualified Code(s): R07.1 - Chest pain on breathing (4) Pleural effusion Current Visit: Yes Status: Acute S/p left thoracentesis on 12/18/16 with IR. Fluid sent for cultures. Will await results. (5) Leukocytosis Current Visit: Yes Status: Resolved Source unknown at this time. WBC 16.2 today. Pt febrile overnight (101.6). Now afebrile. Fluid from thoracentesis sent for cultures. Qualifiers: Leukocytosis type: unspecified Qualified Code(s): D72.829 - Elevated white blood cell count, unspecified (6) HTN (hypertension) Current Visit: Yes Status: Chronic Stable. Continue with hydralazine scheduled and prn and continue to monitor. Qualifiers: Hypertension type: essential hypertension Qualified Code(s): I10 - Essential (primary) hypertension (7) JAYE (acute kidney injury) Current Visit: Yes Status: Resolved Resolved. Avoid nephrotoxic medications (8) DVT prophylaxis Current Visit: Yes Status: Acute EPCDs to b/l lower extremities On hepari 5,000 units SQ BID Ambulate with assistance TID Subjective Narrative: Pt complains of chest/rib cage pain radiating into his lower back. He states his back is "locked up" and he has a hard time transferring from the chair to the bed. He has some difficulty breathing and feels fatigued. Last bowel movement was three days ago and passing no flatus. He has no appetite. Objective Vital Signs - Last 8 Hours Temp Pulse Resp BP Pulse Ox 12/18/16 05:15 98.1 F 100 16 152/82 93 L 12/18/16 03:20 98.4 F 97 16 147/88 93 L Intake and Output 12/17/16 12/18/16 12/18/16 23:59 07:59 15:59 Intake Total 200 / 200 350 / 350 Output Total 500 / 500 225 / 225 0 / 0 Balance -300 / -300 125 / 125 0 / 0 Intake: Oral 200 / 200 100 / 100 Free Water 250 / 250 Output: Urine 500 / 500 225 / 225 0 / 0 Wound Drainage 0 / 0 0 / 0 0 / 0 Right Lower Abdomen 0 / 0 0 / 0 0 / 0 Other: Meal pt refused tray Blood Glucose* 126 104 - General physical appearance well developed, well nourished, moderate distress - ENT normal mucosa - Neck Neck exam: trachea midline - Respiratory clear to auscultation, other (diminished breath sounds on the left) - Cardiovascular Cardiovascular exam: Present: RRR - Abdomen Abdomen: Present: bowel sounds present (hypoactive), soft, distended, wound (LORENZA drain to RLQ (Total 10ml serosanguinous output yesterday)) - Incision Incision: Present: clean and dry, intact - Integumentary no rash - Neurologic CN 2-12 grossly intact - Psychiatric oriented to time, oriented to person, oriented to place - Labs 12/18/16 04:00 12/18/16 04:00 Diabetes panel 12/18/16 Range/Units 04:00 Sodium 130 L (136-145) mEq/L Potassium 4.4 (3.5-4.5) mEq/L Chloride 97 L (98-109) mEq/L Carbon Dioxide 21 (19-29) mEq/L BUN 15 (8-26) mg/dL Creatinine 0.91 (0.72-1.25) mg/dL Glucose 109 H (70-99) mg/dL Calcium 9.1 (8.6-10.8) mg/dL Calcium panel 12/18/16 Range/Units 04:00 Calcium 9.1 (8.6-10.8) mg/dL Pituitary panel 12/18/16 Range/Units 04:00 Sodium 130 L (136-145) mEq/L Potassium 4.4 (3.5-4.5) mEq/L Chloride 97 L (98-109) mEq/L Carbon Dioxide 21 (19-29) mEq/L BUN 15 (8-26) mg/dL Creatinine 0.91 (0.72-1.25) mg/dL Glucose 109 H (70-99) mg/dL Calcium 9.1 (8.6-10.8) mg/dL Adrenal panel 12/18/16 Range/Units 04:00 Sodium 130 L (136-145) mEq/L Potassium 4.4 (3.5-4.5) mEq/L Chloride 97 L (98-109) mEq/L Carbon Dioxide 21 (19-29) mEq/L BUN 15 (8-26) mg/dL Creatinine 0.91 (0.72-1.25) mg/dL Glucose 109 H (70-99) mg/dL Calcium 9.1 (8.6-10.8) mg/dL - VTE Documentation of Mechanical Device: Intermittent pneumatic compression device Consult Discharge Plan - Plan Referrals: NO,PCP [Primary Care Provider] - - Attending Attestation I examined this patient and my medical decision-making was reviewed with the TIN [facility]OURER/PA/Advanced Practice Nurse/Resident Physician. I agree with the documented findings, disposition and treatment plan as described except to the extent set forth below.
[2016-12-19] MEDS: Insulin LISPRO 300 UNITS/3 ML VIAL SQ SCH ×4 (00:23→18:43)
[2016-12-19] MEDS: Metoclopramide 10 MG/2 ML VIAL IVP SCH ×4 (00:24→18:43)
[2016-12-19] MEDS: *HR* Morphine 2 MG/ML SYRINGE IVP PRN ×4 (00:24→19:45)
[2016-12-19] MEDS: *HR* LORazepam 2 MG/ML VIAL IVP PRN ×2 (00:30→06:40)
[2016-12-19] MEDS: *HR* OxyCODONE/APAP 10/325 TABLET PO PRN ×4 (02:20→21:03)
[2016-12-19] MEDS ORDERED: *HR* Morphine 2 MG/ML SYRINGE IVP ONE (02:52)
[2016-12-19 03:44] LABS: Basophils % 0.3 %; Eosinophils # 0.3 K/mcL (0.0-0.6); Eosinophils % 2.1 %; Hematocrit 28.7 % (37.5-50.1); Hemoglobin 9.5 g/dL (12.9-16.9); Immature Granulocytes % 1.7 % (0-4); Lymphocytes # 1.2 K/mcL (0.6-4.6); Lymphocytes % 8.5 %; Mean Corpuscular HGB Conc 33.1 g/dL (31.6-35.5); Mean Corpuscular Hemoglobin 30.7 pg (28.0-33.3); Mean Corpuscular Volume 92.9 fL (83.0-100.0); Mean Platelet Volume 9.6 fL (9.4-12.4); Monocytes # 1.6 K/mcL (0.0-1.3); Monocytes % 11.4 %; Neutrophils # 10.5 K/mcL (1.6-8.9); Platelet Count 463 K/mcL (140-400); Red Blood Count 3.09 M/mcL (4.19-5.50); Red Cell Distribution Width 13.7 % (11.5-14.5)
[2016-12-19 06:11] LABS: BUN/Creatinine Ratio 19 (6-26); Blood Urea Nitrogen 16 mg/dL (8-26); Calcium 8.8 mg/dL (8.6-10.8); Carbon Dioxide 23 mEq/L (19-29); Chloride 96 mEq/L (98-109); Glucose 109 mg/dL (70-99); Osmolality,Calculated 274 (280-300); Potassium 4.1 mEq/L (3.5-4.5); Sodium 131 mEq/L (136-145); eGFR For African Americans > 60 (> 60); eGFR For Non-African Americans > 60 (> 60)
[2016-12-19] MEDS: *HR* Heparin 5,000 UNIT/ML VIAL SQ SCH ×2 (06:39→18:42)
[2016-12-19] MEDS: Pantoprazole 40 MG VIAL IVP SCH (08:25)
--- NOTE | 2016-12-19 09:15 | General Surgery Progress Note ---
Date of Encounter: 12/19/16 Time of Encounter: 08:15 - Assessment and Plan (1) Ileus Current Visit: Yes Status: Acute POD#11 s/p exploratory laparotomy, appendectomy with Dr. Beaulieu. LORENZA drain removed today, 12/19/16 No bowel movement for 4 days. Pt passing flatus. Tolerating full liquid diet. Continue with Percocet Q6H and Morphine 2mg IV Q3H prn pain. Continue Reglan 10mg IV Q6H. Plan for wound vac. (2) Acute perforated appendicitis Current Visit: Yes Status: Resolved Resolved. Plan as above (3) Chest pain Current Visit: Yes Status: Acute Improving clinically. Secondary to pleural effusion as confirmed by CT. CXR from 12/18/16 with persistent left pleural effusion with atelectasis or infiltrate in the left lung base. No pneumothorax. S/p left thoracentesis on 12/18/16 per IR. 1L removed. Awaiting fluid culture results. Continue Percocet and Morphine for pain control, as above. Qualifiers: Chest pain type: chest pain on breathing Qualified Code(s): R07.1 - Chest pain on breathing (4) Pleural effusion Current Visit: Yes Status: Acute S/p left thoracentesis on 12/18/16 with IR. 1L fluid removed Awaiting culture results (5) Leukocytosis Current Visit: Yes Status: Resolved Source unknown at this time. WBC improving 16.2>13.8. Pt has remained afebrile for 24 hours. Awaiting fluid culture results from thoracentesis. Will monitor. Qualifiers: Leukocytosis type: unspecified Qualified Code(s): D72.829 - Elevated white blood cell count, unspecified (6) HTN (hypertension) Current Visit: Yes Status: Chronic Blood pressures remain stable. Hydralazine scheduled and prn and continue to monitor. Qualifiers: Hypertension type: essential hypertension Qualified Code(s): I10 - Essential (primary) hypertension (7) JAYE (acute kidney injury) Current Visit: Yes Status: Resolved Resolved. Avoid nephrotoxic medications (8) DVT prophylaxis Current Visit: Yes Status: Acute EPCDs to bilateral lower extremities On heparin 5,000 units SQ BID Ambulate with assistance TID Subjective Narrative: The patient had thoracentesis yesterday and is still complaining of some sharp chest pain, localized below his left breast. The pain is worse while ambulating and moving around and improves with percocet and morphine. He ambulated a few times yesterday. He is less short of breath. He still complains of some abdominal bloating, but is tolerating full liquids without nausea or vomiting and passing flatus. His last bowel movement was four days ago. He also tolerated the removal of the LORENZA drain this morning Objective Vital Signs - Last 8 Hours Temp Pulse Resp BP Pulse Ox 12/19/16 07:17 98.8 F 99 17 146/74 92 L 12/19/16 05:43 98.7 F 98 18 140/84 95 12/19/16 02:38 99.3 F 109 20 138/76 93 L Intake and Output 12/18/16 12/19/16 12/19/16 23:59 07:59 15:59 Intake Total 0 / 0 0 / 0 Output Total 150 / 150 300 / 300 Balance -150 / -150 -300 / -300 Intake: Oral 0 / 0 0 / 0 Output: Urine 150 / 150 300 / 300 Wound Drainage 0 / 0 Right Lower Abdomen 0 / 0 Other: Meal Dinner Percent of Meal Consumed 0% # Voids 1 Weight 91 kg Blood Glucose* 109 101 Patient Weight 12/19/16 23:59 Weight 91 kg - General physical appearance well developed, well nourished, moderate pain - Eyes normal ocular movement - ENT normal mucosa - Neck Neck exam: trachea midline - Respiratory normal respiratory effort, other (Decreased breath sounds left base, improved from yesterday) - Cardiovascular Cardiovascular exam: Present: RRR - Abdomen Abdomen: Present: bowel sounds present, soft, tender (mild tenderness around surical site), wound (open, serosanguinous drainage. few ammon intact) - Integumentary no rash - Neurologic CN 2-12 grossly intact - Psychiatric oriented to time, oriented to person, oriented to place - Labs 12/19/16 03:35 12/19/16 03:35 Diabetes panel 12/19/16 Range/Units 03:35 Sodium 131 L (136-145) mEq/L Potassium 4.1 (3.5-4.5) mEq/L Chloride 96 L (98-109) mEq/L Carbon Dioxide 23 (19-29) mEq/L BUN 16 (8-26) mg/dL Creatinine 0.86 (0.72-1.25) mg/dL Glucose 109 H (70-99) mg/dL Calcium 8.8 (8.6-10.8) mg/dL Calcium panel 12/19/16 Range/Units 03:35 Calcium 8.8 (8.6-10.8) mg/dL Pituitary panel 12/19/16 Range/Units 03:35 Sodium 131 L (136-145) mEq/L Potassium 4.1 (3.5-4.5) mEq/L Chloride 96 L (98-109) mEq/L Carbon Dioxide 23 (19-29) mEq/L BUN 16 (8-26) mg/dL Creatinine 0.86 (0.72-1.25) mg/dL Glucose 109 H (70-99) mg/dL Calcium 8.8 (8.6-10.8) mg/dL Adrenal panel 12/19/16 Range/Units 03:35 Sodium 131 L (136-145) mEq/L Potassium 4.1 (3.5-4.5) mEq/L Chloride 96 L (98-109) mEq/L Carbon Dioxide 23 (19-29) mEq/L BUN 16 (8-26) mg/dL Creatinine 0.86 (0.72-1.25) mg/dL Glucose 109 H (70-99) mg/dL Calcium 8.8 (8.6-10.8) mg/dL - VTE Documentation of Mechanical Device: Intermittent pneumatic compression device Consult Discharge Plan - Plan Referrals: NO,PCP [Primary Care Provider] -
[2016-12-19] MEDS: Simethicone 80 MG TAB.CHEW PO PRN (14:10)
[2016-12-20] MEDS: Insulin LISPRO 300 UNITS/3 ML VIAL SQ SCH ×5 (00:24→23:48)
[2016-12-20] MEDS: *HR* Morphine 2 MG/ML SYRINGE IVP PRN ×5 (00:35→19:00)
[2016-12-20] MEDS: Metoclopramide 10 MG/2 ML VIAL IVP SCH ×4 (00:35→18:32)
[2016-12-20] MEDS: *HR* OxyCODONE/APAP 10/325 TABLET PO PRN ×4 (03:06→22:38)
[2016-12-20 03:23] LABS: Basophils % 0.3 %; Eosinophils # 0.5 K/mcL (0.0-0.6); Eosinophils % 4.3 %; Hematocrit 28.3 % (37.5-50.1); Hemoglobin 9.5 g/dL (12.9-16.9); Immature Granulocytes % 1.6 % (0-4); Lymphocytes # 1.8 K/mcL (0.6-4.6); Lymphocytes % 14.9 %; Mean Corpuscular HGB Conc 33.6 g/dL (31.6-35.5); Mean Corpuscular Hemoglobin 30.8 pg (28.0-33.3); Mean Corpuscular Volume 91.9 fL (83.0-100.0); Mean Platelet Volume 9.8 fL (9.4-12.4); Monocytes # 1.5 K/mcL (0.0-1.3); Monocytes % 12.4 %; Neutrophils # 8.2 K/mcL (1.6-8.9); Platelet Count 355 K/mcL (140-400); Red Blood Count 3.08 M/mcL (4.19-5.50); Red Cell Distribution Width 13.6 % (11.5-14.5); Segmented Neutrophils % 66.5 %
[2016-12-20 03:34] LABS: BUN/Creatinine Ratio 16 (6-26); Blood Urea Nitrogen 12 mg/dL (8-26); Calcium 8.7 mg/dL (8.6-10.8); Carbon Dioxide 23 mEq/L (19-29); Chloride 95 mEq/L (98-109); Glucose 98 mg/dL (70-99); Osmolality,Calculated 270 (280-300); Potassium 3.9 mEq/L (3.5-4.5); Sodium 130 mEq/L (136-145); eGFR For African Americans > 60 (> 60); eGFR For Non-African Americans > 60 (> 60)
[2016-12-20] MEDS: *HR* Heparin 5,000 UNIT/ML VIAL SQ SCH ×2 (05:49→18:32)
[2016-12-20] MEDS: Ondansetron 4 MG/2 ML VIAL IVP PRN (08:09)
[2016-12-20] MEDS: Pantoprazole 40 MG VIAL IVP SCH (08:13)
[2016-12-20] MEDS: Simethicone 80 MG TAB.CHEW PO PRN (08:51)
--- NOTE | 2016-12-20 09:47 | General Surgery Progress Note ---
Date of Encounter: 12/20/16 Time of Encounter: 09:20 - Assessment and Plan (1) Ileus Current Visit: Yes Status: Acute POD#12 s/p exploratory laparotomy, appendectomy with Dr. Beaulieu. LORENZA drain removed 12/19/16 No bowel movement for 5 days. Pt passing flatus, reports increasing amounts. Tolerating full liquid diet. Continue with Percocet Q6H and Morphine 2mg IV Q3H prn pain. Continue Reglan 10mg IV Q6H. Wound vac placed yesterday, being tolerated well, remains in place. (2) Acute perforated appendicitis Current Visit: Yes Status: Resolved Resolved. Plan as above (3) Chest pain Current Visit: Yes Status: Acute Improving clinically. Secondary to pleural effusion as confirmed by CT. CXR from 12/18/16 with persistent left pleural effusion with atelectasis or infiltrate in the left lung base. No pneumothorax. S/p left thoracentesis on 12/18/16 per IR. 1L removed. Preliminary culture shows many white blood cells >25 per low power field without any epithelial cells or bacteria. Continue Percocet and Morphine for pain control, as above. Qualifiers: Chest pain type: chest pain on breathing Qualified Code(s): R07.1 - Chest pain on breathing (4) Pleural effusion Current Visit: Yes Status: Acute S/p left thoracentesis on 12/18/16 with IR. 1L fluid removed Preliminary results as above. (5) Leukocytosis Current Visit: Yes Status: Resolved Source unknown at this time. WBC improving 16.2>13.8>12.3. Pt has remained afebrile for 48 hours, with Tmax 99.9 yesterday afternoon. Will monitor. Qualifiers: Leukocytosis type: unspecified Qualified Code(s): D72.829 - Elevated white blood cell count, unspecified (6) HTN (hypertension) Current Visit: Yes Status: Chronic Blood pressures remain stable. Hydralazine scheduled and prn and continue to monitor. Qualifiers: Hypertension type: essential hypertension Qualified Code(s): I10 - Essential (primary) hypertension (7) JAEY (acute kidney injury) Current Visit: Yes Status: Resolved Resolved. Avoid nephrotoxic medications (8) DVT prophylaxis Current Visit: Yes Status: Acute EPCDs to bilateral lower extremities On heparin 5,000 units SQ BID Ambulate with assistance TID Subjective Patient reports: no new complaints, feels better, pain is less, tolerating liquids well, voiding w/o difficulty, flatus, no bowel movement, afebrile (Tmax 99.9 yesterday afternoon) Narrative: No nausea or vomiting with full liquid diet. The patient states that he feels motivated today to use his incentive spirometry more as well as walk more. Objective Vital Signs - Last 8 Hours Temp Pulse Resp BP Pulse Ox 12/20/16 06:37 98.1 F 95 16 143/76 93 L 12/20/16 05:42 92 130/80 12/20/16 03:44 98.8 F 100 16 126/76 94 L Intake and Output 12/19/16 12/20/16 12/20/16 23:59 07:59 15:59 Intake Total 400 / 400 100 / 100 Output Total 280 / 280 345 / 345 Balance 120 / 120 -245 / -245 Intake: Oral 400 / 400 100 / 100 Output: Urine 250 / 250 325 / 325 Wound Drainage 20 Right Lower Abdomen Other: Meal Refused Weight 89.981 kg Blood Glucose* 102 99 Patient Weight 12/20/16 23:59 Weight 89.981 kg - General physical appearance well developed, well nourished, no distress - Eyes normal ocular movement - ENT normal mucosa - Respiratory normal respiratory effort, clear to auscultation - Cardiovascular Cardiovascular exam: Present: RRR - Abdomen Abdomen: Present: bowel sounds present, soft, tender (very mild in the midline) - Incision Incision: Present: open (Not visualized today, wound vac in place.) - Integumentary no rash - Neurologic CN 2-12 grossly intact - Musculoskeletal normal posture - Psychiatric oriented to time, oriented to person, oriented to place, speech is normal, memory intact - Labs 12/20/16 03:17 12/20/16 03:17 Diabetes panel 12/20/16 Range/Units 03:17 Sodium 130 L (136-145) mEq/L Potassium 3.9 (3.5-4.5) mEq/L Chloride 95 L (98-109) mEq/L Carbon Dioxide 23 (19-29) mEq/L BUN 12 (8-26) mg/dL Creatinine 0.77 (0.72-1.25) mg/dL Glucose 98 (70-99) mg/dL Calcium 8.7 (8.6-10.8) mg/dL Calcium panel 12/20/16 Range/Units 03:17 Calcium 8.7 (8.6-10.8) mg/dL Pituitary panel 12/20/16 Range/Units 03:17 Sodium 130 L (136-145) mEq/L Potassium 3.9 (3.5-4.5) mEq/L Chloride 95 L (98-109) mEq/L Carbon Dioxide 23 (19-29) mEq/L BUN 12 (8-26) mg/dL Creatinine 0.77 (0.72-1.25) mg/dL Glucose 98 (70-99) mg/dL Calcium 8.7 (8.6-10.8) mg/dL Adrenal panel 12/20/16 Range/Units 03:17 Sodium 130 L (136-145) mEq/L Potassium 3.9 (3.5-4.5) mEq/L Chloride 95 L (98-109) mEq/L Carbon Dioxide 23 (19-29) mEq/L BUN 12 (8-26) mg/dL Creatinine 0.77 (0.72-1.25) mg/dL Glucose 98 (70-99) mg/dL Calcium 8.7 (8.6-10.8) mg/dL - VTE Documentation of Mechanical Device: Intermittent pneumatic compression device Consult Discharge Plan - Plan Referrals: NO,PCP [Primary Care Provider] - - Attending Attestation I examined this patient and my medical decision-making was reviewed with the COMMUNITY DEVELOPMENT MANAGER/PA/Advanced Practice Nurse/Resident Physician. I agree with the documented findings, disposition and treatment plan as described except to the extent set forth below.
[2016-12-21] MEDS: Metoclopramide 10 MG/2 ML VIAL IVP SCH ×4 (00:06→17:07)
[2016-12-21] MEDS: *HR* Morphine 2 MG/ML SYRINGE IVP PRN ×4 (00:20→20:13)
[2016-12-21] MEDS: Insulin LISPRO 300 UNITS/3 ML VIAL SQ SCH ×3 (06:31→19:11)
[2016-12-21] MEDS: *HR* OxyCODONE/APAP 10/325 TABLET PO PRN ×3 (06:36→19:11)
[2016-12-21] MEDS: *HR* Heparin 5,000 UNIT/ML VIAL SQ SCH ×2 (06:38→20:14)
[2016-12-21 07:03] LABS: Basophils # 0.1 K/mcL (0.0-0.2); Basophils % 0.5 %; Eosinophils # 0.5 K/mcL (0.0-0.6); Eosinophils % 4.3 %; Hematocrit 27.1 % (37.5-50.1); Hemoglobin 9.2 g/dL (12.9-16.9); Immature Granulocytes % 1.4 % (0-4); Immature Platelets 2.3 % (1.1-6.1); Lymphocytes # 1.5 K/mcL (0.6-4.6); Lymphocytes % 14.5 %; Mean Corpuscular HGB Conc 33.9 g/dL (31.6-35.5); Mean Corpuscular Hemoglobin 30.8 pg (28.0-33.3); Mean Corpuscular Volume 90.6 fL (83.0-100.0); Mean Platelet Volume 9.1 fL (9.4-12.4); Monocytes # 1.3 K/mcL (0.0-1.3); Monocytes % 12.7 %; Platelet Count 543 K/mcL (140-400); Red Blood Count 2.99 M/mcL (4.19-5.50); Red Cell Distribution Width 13.7 % (11.5-14.5); Segmented Neutrophils % 66.6 %
[2016-12-21 07:14] LABS: BUN/Creatinine Ratio 12 (6-26); Blood Urea Nitrogen 9 mg/dL (8-26); Calcium 8.9 mg/dL (8.6-10.8); Carbon Dioxide 25 mEq/L (19-29); Chloride 95 mEq/L (98-109); Glucose 105 mg/dL (70-99); Osmolality,Calculated 271 (280-300); Potassium 3.9 mEq/L (3.5-4.5); Sodium 131 mEq/L (136-145); eGFR For African Americans > 60 (> 60); eGFR For Non-African Americans > 60 (> 60)
--- NOTE | 2016-12-21 09:49 | General Surgery Progress Note ---
Date of Encounter: 12/21/16 Time of Encounter: 08:40 - Assessment and Plan (1) Ileus Current Visit: Yes Status: Acute POD#13 s/p exploratory laparotomy, appendectomy with Dr. Beaulieu. LORENZA drain removed 12/19/16 No bowel movement for 6 days. Pt passing flatus, reports stable amounts. Tolerating full liquid diet. Continue with Percocet Q6H and Morphine 2mg IV Q3H prn pain. Continue Reglan 10mg IV Q6H. Continue colace 100mg BID Wound vac placed 12/19/16, being tolerated well, plan to change out sponges and dressings tomorrow. (2) Acute perforated appendicitis Current Visit: Yes Status: Resolved Resolved. Plan as above (3) Chest pain Current Visit: Yes Status: Acute Acutely worse pain again today after lunch. Repeat thoracentesis today. Secondary to pleural effusion as confirmed by CT. CXR from 12/18/16 with persistent left pleural effusion with atelectasis or infiltrate in the left lung base. No pneumothorax. CXR from 12/20/16 demonstrated no change. S/p left thoracentesis on 12/18/16 per IR. 1L removed. Preliminary culture shows many white blood cells >25 per low power field without any epithelial cells or bacteria. Cytology pending. Continue Percocet and Morphine for pain control, as above. Qualifiers: Chest pain type: chest pain on breathing Qualified Code(s): R07.1 - Chest pain on breathing (4) Pleural effusion Current Visit: Yes Status: Acute S/p left thoracentesis on 12/18/16 with IR. 1L fluid removed Preliminary results as above. Repeat thoracentesis today. (5) Leukocytosis Current Visit: Yes Status: Resolved Source unknown at this time. WBC improving 16.2>13.8>12.3>10.5. Pt had low grade fever last night, with Tmax 100.2. Will monitor. Qualifiers: Leukocytosis type: unspecified Qualified Code(s): D72.829 - Elevated white blood cell count, unspecified (6) HTN (hypertension) Current Visit: Yes Status: Chronic Blood pressures remain stable. Hydralazine scheduled and prn and continue to monitor. Qualifiers: Hypertension type: essential hypertension Qualified Code(s): I10 - Essential (primary) hypertension (7) JAYE (acute kidney injury) Current Visit: Yes Status: Resolved Resolved. Avoid nephrotoxic medications (8) DVT prophylaxis Current Visit: Yes Status: Acute EPCDs to bilateral lower extremities On heparin 5,000 units SQ BID Ambulate with assistance TID Objective Vital Signs - Last 8 Hours Temp Pulse Resp BP Pulse Ox 12/21/16 05:48 98.8 F 97 18 138/79 92 L Intake and Output 12/20/16 12/21/16 12/21/16 23:59 07:59 15:59 Intake Total 960 / 960 0 / 0 Output Total 430 / 430 350 / 350 Balance 530 / 530 -350 / -350 Intake: Oral 960 / 960 0 / 0 Output: Urine 380 / 380 350 / 350 Wound Drainage 50 / 50 mid ABD 50 / 50 Other: Meal Dinner Percent of Meal Consumed 25% Weight 90.832 kg Blood Glucose* 105 101 Patient Weight 12/21/16 23:59 Weight 90.832 kg - Labs 12/21/16 06:55 12/21/16 06:55 Diabetes panel 12/21/16 Range/Units 06:55 Sodium 131 L (136-145) mEq/L Potassium 3.9 (3.5-4.5) mEq/L Chloride 95 L (98-109) mEq/L Carbon Dioxide 25 (19-29) mEq/L BUN 9 (8-26) mg/dL Creatinine 0.78 (0.72-1.25) mg/dL Glucose 105 H (70-99) mg/dL Calcium 8.9 (8.6-10.8) mg/dL Calcium panel 12/21/16 Range/Units 06:55 Calcium 8.9 (8.6-10.8) mg/dL Pituitary panel 12/21/16 Range/Units 06:55 Sodium 131 L (136-145) mEq/L Potassium 3.9 (3.5-4.5) mEq/L Chloride 95 L (98-109) mEq/L Carbon Dioxide 25 (19-29) mEq/L BUN 9 (8-26) mg/dL Creatinine 0.78 (0.72-1.25) mg/dL Glucose 105 H (70-99) mg/dL Calcium 8.9 (8.6-10.8) mg/dL Adrenal panel 12/21/16 Range/Units 06:55 Sodium 131 L (136-145) mEq/L Potassium 3.9 (3.5-4.5) mEq/L Chloride 95 L (98-109) mEq/L Carbon Dioxide 25 (19-29) mEq/L BUN 9 (8-26) mg/dL Creatinine 0.78 (0.72-1.25) mg/dL Glucose 105 H (70-99) mg/dL Calcium 8.9 (8.6-10.8) mg/dL - VTE Documentation of Mechanical Device: Intermittent pneumatic compression device Consult Discharge Plan - Plan Referrals: NO,PCP [Primary Care Provider] - - Attending Attestation I examined this patient and my medical decision-making was reviewed with the HOSPITAL CLEANER/PA/Advanced Practice Nurse/Resident Physician. I agree with the documented findings, disposition and treatment plan as described except to the extent set forth below.
[2016-12-21] MEDS: Pantoprazole 40 MG VIAL IVP SCH (10:33)
[2016-12-21] MEDS ORDERED: *HR* LORazepam 2 MG/ML VIAL IVP ONE (14:24)
--- NOTE | 2016-12-21 14:24 | Event Note ---
Date of Encounter: 12/21/16 Time of Encounter: 14:00 Patient seen and examined. Labs and x-rays reviewed. Patient with complaint of shortness of breath and chest pressure after walking. Oxygen saturation 89% on room air. Symptoms improved with rest. X-ray shows persistent left pleural effusion. Interventional Radiology consulted to drain left pleural effusion today. Will plan for wound vac change tomorrow and then every MWF. Will give a dose of magnesium citrate today (patient has not had a BM in 6 days). Also, continue colace and prn Miralax. See resident note complete per Dr. Rk López for complete assessment and plan.
[2016-12-22] MEDS: Insulin LISPRO 300 UNITS/3 ML VIAL SQ SCH ×2 (00:30→06:08)
[2016-12-22] MEDS: Metoclopramide 10 MG/2 ML VIAL IVP SCH ×2 (00:58→06:14)
[2016-12-22] MEDS: *HR* Morphine 2 MG/ML SYRINGE IVP PRN ×6 (01:10→21:43)
[2016-12-22] MEDS: *HR* OxyCODONE/APAP 10/325 TABLET PO PRN ×4 (01:10→20:36)
[2016-12-22] MEDS: *HR* Heparin 5,000 UNIT/ML VIAL SQ SCH ×2 (06:14→17:50)
--- NOTE | 2016-12-22 08:11 | General Surgery Progress Note ---
Date of Encounter: 12/22/16 Time of Encounter: 08:00 - Assessment and Plan (1) Acute perforated appendicitis Current Visit: Yes Status: Resolved POD #14 from exploratory laparotomy, GEGE, appendectomy, repair of SB enterotomy Advance to regular diet Protein supplements TID Wound vac therapy MWF Supportive care/pain control Ambulate hallways with assistance (2) Ileus Current Visit: Yes Status: Resolved Advance to regular diet Protein supplements TID with meals D/C reglan 1/2 bottle of magnesium citrate today (3) HTN (hypertension) Current Visit: Yes Status: Chronic Normotensive Hydralazine IV every 6 hours Will continue to monitor and treat as necessary Qualifiers: Hypertension type: essential hypertension Qualified Code(s): I10 - Essential (primary) hypertension (4) Pleural effusion Current Visit: Yes Status: Acute s/p Repeat thoracentesis with IR 12/21 (100ml drained) Will plan to review CT with radiology/Dr. Beaulieu for possible loculated effusion Wean supplemental oxygen to maintain saturation greater than or equal to 90% (5) DVT prophylaxis Current Visit: Yes Status: Acute EPCDs to bilateral lower extremities for DVT prophylaxis Ambulate in hallways with assistance TID Continue heparin 5,000 units SQ twice daily for DVT prophylaxis Subjective Patient reports: feels better, still having pain, pain is less, tolerating liquids well (full liquids), voiding w/o difficulty, flatus, no bowel movement ( for the past 7 days), shortness of breath (with exertion), afebrile, other (Out of bed to chair. Complaints of occasional chest pressure.) Objective Vital Signs - Last 8 Hours Temp Pulse Resp BP Pulse Ox 12/22/16 07:32 98.7 F 85 16 131/81 93 L 12/22/16 05:49 98.7 F 87 16 131/82 94 L Intake and Output 12/21/16 12/22/16 12/22/16 23:59 07:59 15:59 Intake Total 820 / 820 120 / 120 Output Total 700 / 700 580 / 580 Balance 120 / 120 -460 / -460 Intake: Oral 820 / 820 120 / 120 Output: Urine 700 / 700 580 / 580 Other: Meal Dinner Weight 91.767 kg Blood Glucose* 100 104 Patient Weight 12/22/16 23:59 Weight 91.767 kg - General physical appearance well developed, no distress - Eyes normal ocular movement - ENT normal mucosa, atraumatic, normocephalic - Neck Neck exam: trachea midline - Respiratory normal respiratory effort, clear to auscultation, other (diminished bibasilar breath sounds) - Cardiovascular Cardiovascular exam: Present: RRR - Abdomen Abdomen: Present: bowel sounds present, soft, tender (mild expected post- operative tenderness), wound (Midline with wound vac intact; change every MWF) - Incision Incision: Present: open (3 open areas to midline with wound vac in place; change every MWF) - Neurologic CN 2-12 grossly intact - Musculoskeletal other (moderate deconditioning) - Psychiatric oriented to time, oriented to person, oriented to place, speech is normal, memory intact - Labs 12/21/16 06:55 12/21/16 06:55 - VTE Documentation of Mechanical Device: Intermittent pneumatic compression device Consult Discharge Plan - Plan Referrals: NO,PCP [Primary Care Provider] - - Attending Attestation I examined this patient and my medical decision-making was reviewed with the INSULATION HOSEMAN/PA/Advanced Practice Nurse/Resident Physician. I agree with the documented findings, disposition and treatment plan as described except to the extent set forth below.
[2016-12-22] MEDS: Multivit/Ca/Min/Fe/FA 1 TAB TABLET PO SCH (09:48)
[2016-12-23] MEDS: *HR* Morphine 2 MG/ML SYRINGE IVP PRN ×2 (01:03→23:49)
[2016-12-23] MEDS: *HR* OxyCODONE/APAP 10/325 TABLET PO PRN ×4 (04:41→22:20)
[2016-12-23] MEDS: *HR* Heparin 5,000 UNIT/ML VIAL SQ SCH ×2 (06:39→18:18)
--- NOTE | 2016-12-23 09:27 | General Surgery Progress Note ---
Date of Encounter: 12/23/16 Time of Encounter: 09:24 - Assessment and Plan (1) Ileus Current Visit: Yes Status: Resolved Patient denies any nausea or vomiting. Positive bowel movements. No abdominal pain. Continue with current diet. Continue with Reglan. Subjective Patient reports: no new complaints (Patient states he had has BM last night and this morning. No rectal bleeding.) Objective Vital Signs - Last 8 Hours Temp Pulse Resp BP Pulse Ox 12/23/16 06:48 97.8 F 82 16 106/66 95 12/23/16 04:29 99.1 F 87 16 124/75 93 L Intake and Output 12/22/16 12/23/16 12/23/16 23:59 07:59 15:59 Intake Total 1240 / 1240 0 / 0 Output Total 290 / 290 300 / 300 Balance 950 / 950 -300 / -300 Intake: Oral 1240 / 1240 0 / 0 Output: Urine 250 / 250 300 / 300 Wound Drainage 40 / 40 0 / 0 mid ABD 40 / 40 0 / 0 Other: Meal Dinner Percent of Meal Consumed 5% Stool Size Large Stool Consistency formed Stool Color Brown # Bowel Movements 1 Weight 92.85 kg Blood Glucose* 128 Patient Weight 12/23/16 23:59 Weight 92.85 kg - General physical appearance well developed, well nourished, no distress - Abdomen Abdomen: Present: bowel sounds present, soft, non tender (Wound vac in place. less than 100ml fluid in canister.) - Labs 12/21/16 06:55 12/21/16 06:55 - VTE Documentation of Mechanical Device: Intermittent pneumatic compression device Consult Discharge Plan - Plan Referrals: NO,PCP [Primary Care Provider] -
[2016-12-23] MEDS: Multivit/Ca/Min/Fe/FA 1 TAB TABLET PO SCH (09:45)
[2016-12-24] MEDS: *HR* Morphine 2 MG/ML SYRINGE IVP PRN ×4 (03:16→18:41)
[2016-12-24] MEDS: *HR* OxyCODONE/APAP 10/325 TABLET PO PRN ×3 (06:01→19:55)
[2016-12-24] MEDS: *HR* Heparin 5,000 UNIT/ML VIAL SQ SCH ×2 (06:04→18:41)
[2016-12-24 08:27] LABS: Basophils % 0.5 %; Eosinophils # 0.5 K/mcL (0.0-0.6); Eosinophils % 5.9 %; Hemoglobin 9.2 g/dL (12.9-16.9); Immature Granulocytes % 1.3 % (0-4); Lymphocytes # 1.7 K/mcL (0.6-4.6); Mean Corpuscular HGB Conc 32.9 g/dL (31.6-35.5); Mean Corpuscular Hemoglobin 30.6 pg (28.0-33.3); Mean Platelet Volume 9.8 fL (9.4-12.4); Neutrophils # 5.1 K/mcL (1.6-8.9); Platelet Count 530 K/mcL (140-400); Red Blood Count 3.01 M/mcL (4.19-5.50); Red Cell Distribution Width 13.7 % (11.5-14.5); Segmented Neutrophils % 60.3 %
[2016-12-24 08:31] LABS: BUN/Creatinine Ratio 13 (6-26); Blood Urea Nitrogen 11 mg/dL (8-26); Calcium 8.9 mg/dL (8.6-10.8); Carbon Dioxide 27 mEq/L (19-29); Chloride 98 mEq/L (98-109); Glucose 104 mg/dL (70-99); Osmolality,Calculated 276 (280-300); Potassium 4.5 mEq/L (3.5-4.5); Sodium 133 mEq/L (136-145); eGFR For African Americans > 60 (> 60); eGFR For Non-African Americans > 60 (> 60)
[2016-12-24] MEDS: Multivit/Ca/Min/Fe/FA 1 TAB TABLET PO SCH (09:11)
--- NOTE | 2016-12-24 11:06 | General Surgery Progress Note ---
Date of Encounter: 12/24/16 Time of Encounter: 11:04 - Assessment and Plan (1) Ileus Current Visit: Yes Status: Resolved The patient continues to do very well. Tolerating by mouth diet and having positive bowel movements. Awaiting result of insurance coverage for wound VAC as an outpatient.. Subjective Patient reports: no new complaints (Positive BM. No nausea or vomiting. Noted problem overnight with leakage from wound vac-resolved.) Objective Vital Signs - Last 8 Hours Temp Pulse Resp BP Pulse Ox 12/24/16 06:35 98.1 F 82 14 121/74 93 L 12/24/16 03:42 98.5 F 83 18 103/64 93 L Intake and Output 12/23/16 12/24/16 12/24/16 23:59 07:59 15:59 Intake Total 240 / 240 Output Total 720 / 720 855 / 855 Balance -480 / -480 -855 / -855 Intake: Oral 240 / 240 Output: Urine 650 / 650 825 / 825 Wound Drainage 70 / 70 30 / 30 mid ABD 70 / 70 30 / 30 Other: Meal 2 bottles Percent of Meal Consumed 100% Weight 92.3 kg Patient Weight 12/24/16 23:59 Weight 92.3 kg - Abdomen Abdomen: Present: bowel sounds present, soft, non tender (Wound vac functioning. ) - Labs 12/24/16 07:15 12/24/16 07:15 Diabetes panel 12/24/16 Range/Units 07:15 Sodium 133 L (136-145) mEq/L Potassium 4.5 (3.5-4.5) mEq/L Chloride 98 (98-109) mEq/L Carbon Dioxide 27 (19-29) mEq/L BUN 11 (8-26) mg/dL Creatinine 0.83 (0.72-1.25) mg/dL Glucose 104 H (70-99) mg/dL Calcium 8.9 (8.6-10.8) mg/dL Calcium panel 12/24/16 Range/Units 07:15 Calcium 8.9 (8.6-10.8) mg/dL Pituitary panel 12/24/16 Range/Units 07:15 Sodium 133 L (136-145) mEq/L Potassium 4.5 (3.5-4.5) mEq/L Chloride 98 (98-109) mEq/L Carbon Dioxide 27 (19-29) mEq/L BUN 11 (8-26) mg/dL Creatinine 0.83 (0.72-1.25) mg/dL Glucose 104 H (70-99) mg/dL Calcium 8.9 (8.6-10.8) mg/dL Adrenal panel 12/24/16 Range/Units 07:15 Sodium 133 L (136-145) mEq/L Potassium 4.5 (3.5-4.5) mEq/L Chloride 98 (98-109) mEq/L Carbon Dioxide 27 (19-29) mEq/L BUN 11 (8-26) mg/dL Creatinine 0.83 (0.72-1.25) mg/dL Glucose 104 H (70-99) mg/dL Calcium 8.9 (8.6-10.8) mg/dL - VTE Documentation of Mechanical Device: Intermittent pneumatic compression device Consult Discharge Plan - Plan Referrals: NO,PCP [Primary Care Provider] -
[2016-12-25] MEDS: *HR* Morphine 2 MG/ML SYRINGE IVP PRN ×2 (00:12→08:54)
[2016-12-25] MEDS: *HR* OxyCODONE/APAP 10/325 TABLET PO PRN ×2 (02:22→10:37)
[2016-12-25] MEDS: *HR* Heparin 5,000 UNIT/ML VIAL SQ SCH (06:18)
[2016-12-25] MEDS: Multivit/Ca/Min/Fe/FA 1 TAB TABLET PO SCH (07:40)
[2016-12-25] MEDS ORDERED: *HR* OxyCODONE/APAP 5/325 TABLET PO ONE (11:54)
--- NOTE | 2016-12-25 13:53 | Discharge Summary ---
Date of Encounter: 12/25/16 Time of Encounter: 13:48 - Discharge Diagnosis (1) Acute perforated appendicitis Priority: Primary Status: Resolved (2) Ileus Priority: Secondary Status: Resolved (3) HTN (hypertension) Priority: Secondary Status: Chronic Qualifiers: Hypertension type: essential hypertension Qualified Code(s): I10 - Essential (primary) hypertension (4) Pleural effusion Priority: Secondary Status: Acute (5) DVT prophylaxis Priority: Secondary Status: Acute - Discharge Medications Prescriptions: OxyCODONE/APAP 10/325 [Percocet 10/325 MG] 1 each PO Q6HR PRN #30 tablet PRN Reason: Moderate Pain Ibuprofen [Motrin] 800 mg PO Q8HR #50 tablet Docusate [Colace] 100 mg PO BID #30 capsule Home Medications: Lisinopril [Zestril] 40 mg PO DAILY 11/26/16 [History] Multivitamin/Iron/Folic Acid [Centrum Complete Multivit Tab] 1 tab PO DAILY [History] Docusate [Colace] 100 mg PO BID #30 capsule 12/25/16 [Rx] Ibuprofen [Motrin] 800 mg PO Q8HR #50 tablet 12/25/16 [Rx] OxyCODONE/APAP 10/325 [Percocet 10/325 MG] 1 each PO Q6HR PRN #30 tablet [Rx] Allergies/Adverse Reactions: Allergies No Known Allergies Allergy (Verified 11/26/16 07:21) General Surgery Exam Initial Vital Signs Temp Pulse Resp BP Pulse Ox 101.5 F H 90 18 111/72 96 11/26/16 11:11 11/26/16 11:11 11/26/16 11:11 11/26/16 11:11 11/26/16 11:11 - General physical appearance well developed, well nourished, no distress - Eyes normal ocular movement - ENT normal mucosa, atraumatic, normocephalic - Neck trachea midline - Respiratory normal respiratory effort, clear to auscultation - Cardiovascular Cardiovascular exam: Present: RRR, 15, 16 - Abdomen Abdomen general surgery: Present: bowel sounds present, soft, tender (minimal, expected tenderness), wound (Midline with wound vac intact with cloudy drainage noted) - Incision Incision: Present: purulent, open - Integumentary Integumentary general surgery: Present: warm and dry - Neurologic Present: CN 2-12 grossly intact - Psychiatric Psychiatric general surgery: Present: A&Ox3 Date of admission: 11/26/16 17:38 Primary care physician: PCP NO Consults: 11/29/16 12:31 consult to 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 machine operator [Consult to Nutrition] [CONS] Routine Comment: Total fluid rate 100ml/hour (MIV + TPN) Consulting Provider: NUTRITION Reason for Dietary Consult: TPN Start and Manage 11/29/16 12:32 Consult to Invasive Line Access Team [CONS] Routine Reason for Consult: PICC line placement Line Type: PICC PICC line indications: Parental nutrition Time Notified: 12:32 Call Completed: Yes 11/29/16 15:29 Consult to Invasive Line Access Team [CONS] Routine Reason for Consult: Picc Line Insertion Line Type: PICC 12/11/16 10:18 Consult to Occupational Therapy [CONS] Routine Comment: Evaluate, develop and implement POC Consult to Physical Therapy [CONS] Routine Comment: Evaluate, develop and implement POC 12/18/16 07:28 Consult to Interventional Radiology [CONS] Routine Consulting Provider: Radiology Interventional Cols Reason for Consult: pleural effusion Time Notified: 07:29 Call Completed: Yes 12/21/16 13:58 Consult to Interventional Radiology [CONS] Routine Consulting Provider: Radiology Interventional Cols Reason for Consult: drainage of left pleural effusion Time Notified: 13:59 Call Completed: Yes Discharging clinician: Maulik Beaulieu (Paramjit Conklin) Anticipated date of discharge: 12/25/16 - Patient Status Disposition: Home, Self-Care Condition: Good Functional capacity at discharge: independent ambulation Overall status at discharge: patient is back to baseline - Discharge Instructions Follow Up With: BRANDY,PCP [Primary Care Provider] - Samina Conklin CUSTOMER SERVICES MANAGER [Advanced Practice Nurse] - 12/27/16 9:00 am (surgery follow-up; wound vac change) Additional Instructions: #1 may shower, no tub bath until cleared per surgeon #2 wash incisions with soap and water and pat dry daily #3 no lifting, pushing, pulling more than 15 pounds for the next 6 weeks #4 no driving until off narcotics for 24 hours and able to safely react in the car #5 may climb stairs #6 Wound vac changes in the surgery office every MWF- take pain medications at least 30 minutes prior to appointment (bring a wound vac change kit and new cannister to each visit for for dressing changes) - Diet and Activity Activity: other (See additional instructions above) Diet: regular diet - Hospital Course Hospital course: Mr. Kirk is a 66 year old male presented to the hospital with perforated appendicitis. He was treated with conservative measures including bowel rest, IV fluids, IV antibiotics. He was treated for 1 week and failed conservative therapy and had a persistent bowel obstruction. He was taken to the operating room on 12/08/16 for an exploratory laparotomy, appendectomy, Lysis of adhesions, repair of small bowel enterotomy X [address] Beaulieu. He was maintained on bowel rest with NG tube for decompression while awaiting return of bowel function. He was started on TPN therapy for nutritional support. He was maintained on IV antibiotics, supportive care. He did experience a prolonged post-operative ileus and a post-operative fluid collection. 3 areas were opened to his midline and a wound vac was applied and has been maintained and changed 3 times per week. With return of bowel function, his NG tube was discontinued and he was started on clear liquids. His diet was advanced as tolerated and he is currently tolerating a regular diet. His vital signs are stable and he is afebrile. His pain is well controlled with oral pain medication. He is ambulating and voiding without difficulty. We will begin discharge planning and plan for outpatient follow-up in the surgery office every MWF for wound vac changes. - Time Spent with Patient Total time spent providing and/or coordinating discharge services: Less than 30 minutes - Impressions ITS Impressions KUB X-Ray 12/03/16 10:13 IMPRESSION: Gastric tube tip in the stomach, with the side port in the region of the GE junction. Recommend that the tube be advanced several cm to ensure that the side port is also in the stomach D/ / Favio Drummond MD / Favio Drummond MD Interpreting Provider: Favio Drummond MD Chest/Abdomen X-ray 12/05/16 12:19 IMPRESSION: 1. Trace bilateral pleural effusions with bibasilar atelectasis. 2. Interval increase in caliber or small bowel dilation measuring up to 6 cm in maximum diameter. Overall paucity of bowel gas within the colon. Finding may either reflect ileus or small-bowel obstruction. 3. No free air. D/ / 12/05/2016 13:25:26 Maxine Gonzalez MD / adam Interpreting Provider: Maxine Gonzalez MD Small Bowel X-Ray 12/05/16 15:39 IMPRESSION: 1. Multiple dilated loops of large and small bowel in a pattern suggestive of an ileus. Small bowel obstruction cannot completely be excluded and additional portable abdominal radiographs will be obtained to follow transition of the oral contrast, most of which is in the proximal small bowel after one hour. D/ / 12/05/2016 18:36:38 Rafael Ramirez MD / adam Interpreting Provider: Rafael Ramirez MD X-Ray 12/05/16 20:00 IMPRESSION: Persistent small bowel distension with minimal gas in the colon consistent with a small-bowel obstruction. D/ / David Acosta MD / David Acosta MD Interpreting Provider: David Acosta MD X-Ray 12/05/16 22:00 IMPRESSION: Persistent dilated loops of small bowel with contrast only seen within the stomach and proximal small bowel loops. Findings are suggestive of small-bowel obstruction. D/ / Ernesto Vora MD / Ernesto Vora MD Interpreting Provider: Ernesto Vora MD X-Ray 12/06/16 07:00 IMPRESSION: Persistent distal small bowel obstruction. D/ / 12/06/2016 07:03:55 Edward Farley MD / [email or web address] Interpreting Provider: Edward Farley MD X-Ray 12/06/16 14:49 IMPRESSION: Enteric tube placement with the tip overlying the distal stomach versus proximal duodenum. The proximal side port is likely within the distal stomach. Persistent air-filled dilated loops of small bowel. D/ / Maxine Gonzalez MD / Maxine Gonzalez MD Interpreting Provider: Maxine Gonzalez MD Abdomen/Pelvis CT 12/06/16 17:30 IMPRESSION: 1. Persistent mild inflammation of the appendix, significantly improved compared to the exam of 11/26/2016. There is no evidence of periappendiceal abscess or free intraperitoneal air. 2. Small amount of fluid in the pelvic cul-de-sac with mild hyperemia of the peritoneum in suggestive of peritoneal inflammation. There is also a small amount of fluid along the mesentery and in the abdomen. Two fluid collections in the pelvis, measuring up to 1.9 cm in the axial plane, may be partially loculated. 3. Multiple dilated loops of small bowel, measuring up to 5.1 cm, with decompression of the colon and distal small bowel. Presence of oral contrast in the ascending colon suggests that the dilated loops of small bowel may be due to an ileus or partial small bowel obstruction. A complete small bowel obstruction is less likely. 4. Coronary artery disease. 5. Bibasilar atelectasis with trace pleural effusions. D/ / 12/06/2016 18:52:50 Rafael Ramirez MD / earnold Interpreting Provider: Rafael Ramirez MD X-Ray 12/08/16 13:00 IMPRESSION: Nasogastric tube is coiled in the fundus of the stomach D/ / Richard Bird MD / Richard Bird MD Interpreting Provider: Richard Bird MD Chest/Abdomen X-ray 12/15/16 07:00 IMPRESSION: 1. New small left pleural effusion with bibasilar atelectasis. 2. Dilated small bowel and colon most suggestive of ileus. 3. No free air. D/ / Maxine Gonzalez MD / Maxine Gonzalez MD Interpreting Provider: Maxine Gonzalez MD Chest X-Ray 12/17/16 08:19 IMPRESSION: Right-sided PICC catheter tip extending down into the right ventricle. Left-sided infiltrate with left-sided effusion concerning for pneumonia. D/ / 12/17/2016 09:32:55 Wiley Winters MD / irasema Interpreting Provider: Wiley Winters MD Chest CTA 12/17/16 11:09 IMPRESSION: No evidence of pulmonary embolism. Moderate left pleural effusion with associated near complete atelectasis of the left lower lobe. Fluid within the interlobar fissure may reflect loculated effusion. Trace right pleural effusion with mild right basilar atelectasis. There is persistent mild perisplenic fluid. Small, wedge-shaped areas of splenic hypoattenuation may reflect splenic infarcts. D/ / 12/17/2016 13:26:19 Macey Gonzalez MD / irasema Interpreting Provider: Macey Gonzalez MD Thoracentesis Ultrasound 12/18/16 00:00 IMPRESSION: Successful ultrasound guided thoracentesis. D/ / Hernandez Viera MD / Hernandez Viera MD Interpreting Provider: Hernandez Viera MD Chest X-Ray 12/18/16 09:09 IMPRESSION: Persistent left pleural effusion with atelectasis or infiltrate in the left lung base. No pneumothorax is identified. D/ / 12/18/2016 09:46:30 Dora Botello MD / clair Interpreting Provider: Dora Botello MD Chest X-Ray 12/20/16 14:41 IMPRESSION: 1. Unchanged left pleural effusion and underlying left basilar atelectasis and/or pneumonia. 2. Unchanged right basilar atelectasis. 3. Pulmonary vascular congestion. D/ / Yousif Adair MD / Yousif Adair MD Interpreting Provider: Yousif Adair MD Thoracentesis Ultrasound 12/21/16 00:00 IMPRESSION: Successful ultrasound guided thoracentesis. D/ / Richard Bird MD / Richard Bird MD Interpreting Provider: Richard Bird MD Chest X-Ray 12/21/16 14:39 IMPRESSION: Persistent but mildly improved left pleural effusion and associated atelectasis or infiltrate status post left thoracentesis. No pneumothorax. D/ / 12/21/2016 15:17:45 Vishnu Hanna MD / [facility] [place] Provider: Vishnu Hanna MD Abdomen CT 12/22/16 14:24 IMPRESSION: 1. There is a large fluid collection noted deep to the peritoneum and the rectus sheaths along the anterior abdominal wall measuring approximately 12 x 1 x 8 cm. Superimposed infection within this fluid collection/seroma cannot be excluded. This extends anteriorly towards the expected location of the umbilicus. 2. There are scattered low-attenuation areas noted along the subcapsular margin of the spleen, not appreciably changed compared to a previous chest CT on 12/17/2016. These may represent small splenic infarcts or sequela of trauma from surgery. Underlying abscesses are considered less likely. 3. Loculated left pleural effusion and small right pleural effusion with associated volume loss in the lung bases. 4. No evidence of a bowel obstruction. D/ / 12/22/2016 16:07:04 Hamilton Albarran MD / esha Interpreting Provider: Hamilton Albarran MD Chest CT 12/22/16 14:24 IMPRESSION: 1. Large loculated left pleural effusion, not appreciably changed in size since the 12/17/2016 exam. 2. Slightly smaller right pleural effusion with decreased atelectasis in the right lung base. 3. Sequela of old granulomatous disease in the right lung, unchanged. 4. Cardiomegaly. 5. There are low-attenuation areas surrounding the subcapsular margins of the spleen which are relatively stable since the 12/17/2016 exam. This may represent sequela of trauma from surgery, splenic infarcts, and less likely small abscesses. Please see the dedicated CT of the abdomen and pelvis, performed later today, for further details. D/ : / 12/22/2016 15:49:40 Hamilton Albarran MD / adam Interpreting Provider: Hamilton Albarran MD - Attending Attestation I examined this patient and my medical decision-making was reviewed with the FOUNTAIN ATTENDANT/PA/Advanced Practice Nurse/Resident Physician. I agree with the documented findings, disposition and treatment plan as described except to the extent set forth below.
[2016-12-25 14:27] VITALS: BP 127/80
== END 2016-12-25 16:07 | disposition home or self-care (01) | DRG 330 ==
LOC: 3ANU
PROVIDERS: ADMIT Surgery; ATTEND Surgery